=== PATIENT | female | born 1950 | race Caucasian/White ===

== ENCOUNTER 2017-03-05 18:02 | Emergency (ER) | payer OTHER ==
[2017-03-05 18:21] VITALS: TEMP 97.7
--- NOTE | 2017-03-05 20:00 | EDPHY ---
H & P Stated Complaint: dizzy/fell hitting head/neck pain/on coumadin Time Seen by Provider: 03/05/17 18:29 HPI/ROS: CHIEF COMPLAINT: Headache and neck pain after mechanical fall, anticoagulated HISTORY OF PRESENT ILLNESS: The patient presents to the ED with complaints of mild right-sided headache and right-sided neck pain following a mechanical fall. The patient has had some intermittent symptoms of disequilibrium over the past several days. She was walking out of her bathroom earlier today when she accidentally tripped following landing against a wall. The patient struck her head and neck. She was not knocked unconscious. She is currently anticoagulated for factor 5 Leiden. The patient reports she had a normal INR 2.5 yesterday. The patient denies any abdominal pain. She denies any focal numbness or weakness. She denies any additional acute complaints. REVIEW OF SYSTEMS: A comprehensive 10 point review of systems is otherwise negative aside from elements mentioned in the history of present illness. 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 PSHx: multiple orthopedic, full hysterectomy, gall bladder, total hip - Social History Smoking Status: Former smoker - Physical Exam Exam: General Appearance: Alert, no distress Head: Tenderness to palpation along the right temporal occipital scalp with out obvious hematoma or bony crepitus Eyes: Pupils equal, round, reactive ENT, Mouth: No hemotympanum, no oral trauma Neck: Tenderness to palpation along the right neck primarily in the paracervical muscles and mildly in the midline Respiratory: No chest wall tender, subcutaneous air, lungs clear bilaterally Cardiovascular: Regular rate and rhythm Abdomen: Abdomen is soft and nontender, pelvis stable Skin: No lacerations, No abrasion Back: No midline T/L/S pain Extremities: Nontender, full range of motion Neurological: A&Ox3, normal motor function, normal sensory exam Constitutional: Initial Vital Signs Temperature (C) 36.5 C 03/05/17 18:18 Heart Rate 64 03/05/17 18:18 Respiratory Rate 20 03/05/17 18:18 Blood Pressure 122/59 H 03/05/17 18:18 O2 Sat (%) 95 03/05/17 18:18 O2 Delivery Mode Room Air Allergies/Adverse Reactions: adhesive tape Allergy (Verified 03/05/17 18:16) sumatriptan Allergy (Verified 03/05/17 18:16) Home Medications: Medication Instructions Recorded Pravastatin Sodium 40 mg PO HS 05/26/13 fentaNYL [Duragesic 100 MCG Patch 100 mcg TD Q72H 05/26/13 (*)] ALPRAZolam [Xanax 0.25 MG (*)] 0.25 mg PO TID PRN 05/30/16 Levothyroxine [Synthroid 50 mcg 50 mcg PO DAILY06 05/30/16 (*)] Meloxicam 15 mg PO DAILY 05/30/16 Venlafaxine HCl [Venlafaxine 75MG 225 mg PO DAILY 05/30/16 (*)] Warfarin Sodium [Coumadin 4MG (*)] 4 mg PO DAILY16 05/30/16 fentaNYL [Duragesic 25 MCG Patch 25 mcg TD Q72H PRN 05/30/16 (*)] oxyCODONE IR [Oxycodone Ir (*)] 7.5 mg PO TID PRN 05/30/16 GABAPENTIN 03/05/17 Tizanidine HCl 03/05/17 Medical Decision Making - Diagnostics Imaging Results: Imaging Impressions Cervical Spine CT 03/05/17 18:39 Impression: 1. No acute posttraumatic abnormality identified. If there is persistent pain or neurologic deficit, consider MRI and/or flexion and extension views if clinically indicated. 2. Multilevel degenerative change with grade 1 anterolisthesis of C3 on C4. 3. Additional findings as above. Findings discussed with Dr. Sumit Medina on March 05, [address] 03/05/17 18:39 Impression: 1. No acute intracranial findings. 2. Diffuse cerebral atrophy with periventricular and subcortical low attenuation consistent with chronic microvascular ischemic gliosis. Findings discussed with Sumit Medina 03/05/2017, at 1926 hours. ED Course/Re-evaluation: Given the patient had a head injury while on Coumadin, she was taken for a stat CT scan of the head and cervical spine. The patient fortunately has no evidence of intracranial hemorrhage or skull fracture. There is no evidence of an acute cervical spine fracture. The patient was noted to have a normal INR of 2.5 yesterday. The patient was observed in the emergency department for 2 hours and had serial examinations. The patient remained neurologically intact. At this point time I do feel the patient can be discharged home with instructions to return to the ED for severe headache, altered mental status, vomiting or other concerns. The patient will follow up with her primary care provider as needed. Differential Diagnosis: Differential diagnosis considered includes intracranial hemorrhage, skull fracture, cervical spine fracture Departure - Departure Disposition: Home, Routine, Self-Care Clinical Impression: Cervical strain, acute, Headache, Anticoagulated Condition: Good Instructions: Acute Neck Pain (ED) Additional Instructions: 1. Please return to the emergency department for any headache, worsening neck pain, numbness, weakness or other concerns. 2. Your CT scans demonstrate no evidence of any bleeding, fracture or other traumatic injury. 3. Please follow up with your primary care provider as scheduled. Referrals: CIRA GRULLON MD [Other] - As per Instructions
[2017-03-05] MEDS ORDERED: ONDANSETRON 4 MG/2 ML VIAL IVP ONE (20:03)
[2017-03-05 20:31] VITALS: BP 115/67; PULSE 82; RESP 16; O2SAT 96
== END 2017-03-05 20:31 | disposition home or self-care (01) ==
DX: S16.1XXA Strain of muscle, fascia and tendon at neck level, initial encounter (principal); S09.90XA Unspecified injury of head, initial encounter; D68.9 Coagulation defect, unspecified; I10 Essential (primary) hypertension; Z87.891 Personal history of nicotine dependence; Z79.01 Long term (current) use of anticoagulants; W01.198A Fall on same level from slipping, tripping and stumbling with subsequent striking against other object, initial encounter; Y99.8 Other external cause status; Y93.01 Activity, walking, marching and hiking
CPT/HCPCS: 96374; J2405

== ENCOUNTER 2017-08-24 12:40 | Inpatient (IN) | payer OTHER ==
--- NOTE | 2017-08-24 12:45 | CPEKG ---
Heart Rate: 71 RR Interval: 845 P-R Interval: 144 QRSD Interval: 82 QT Interval: 455 QTC Interval: 495 P Eunice: 44 QRS Eunice: 51 T Wave Eunice: 151 EKG Severity - BORDERLINE ECG - EKG Impression: SINUS RHYTHM EKG Impression: BORDERLINE PROLONGED QT INTERVAL Electronically Signed By: Sumit Medina 24-Aug-2017 13:38:27
--- NOTE | 2017-08-24 12:48 | EDPHY ---
H & P Time Seen by Provider: 08/24/17 12:47 HPI/ROS: CHIEF COMPLAINT: Chest pain, lightheadedness, dizziness HISTORY OF PRESENT ILLNESS: The patient presents to the ED with complaints of chest pain, upper abdominal pain on multiple episodes of vomiting and dizziness all of which began earlier this morning. The patient the patient is chronically anticoagulated for thromboembolic disease with Coumadin. She denies any history of coronary artery disease. She does have a prior history of cholecystectomy. She denies prior history of arrhythmia. The patient did take Zofran prior to arrival for her nausea and vomiting. The patient reportedly felt completely fine prior to going to bed yesterday. REVIEW OF SYSTEMS: A comprehensive 10 point review of systems is otherwise negative aside from elements mentioned in the history of present illness. 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 PSHx: multiple orthopedic, full hysterectomy, gall bladder, total hip - Social History Smoking Status: Former smoker - Physical Exam Exam: General Appearance: Alert, no distress Eyes: Pupils equal and round no pallor or injection ENT, Mouth: Mucous membranes moist Respiratory: Sternal tenderness to palpation, lungs clear to auscultation Cardiovascular: Regular rate and rhythm Gastrointestinal: Tenderness to palpation right upper quadrant, epigastrium and left upper quadrant Neurological: 5/5 strength noted all 4 remedies Skin: Warm and dry, no rashes Musculoskeletal: Neck is supple nontender Extremities: symmetrical, full range of motion Constitutional: Initial Vital Signs Temperature (C) 37.1 C 08/24/17 12:45 Heart Rate 79 08/24/17 12:45 Respiratory Rate 20 08/24/17 12:45 Blood Pressure 206/91 H 08/24/17 12:45 O2 Sat (%) 100 08/24/17 12:45 O2 Delivery Mode Room Air Allergies/Adverse Reactions: adhesive tape Allergy (Verified 03/05/17 18:16) sumatriptan Allergy (Verified 03/05/17 18:16) Home Medications: Medication Instructions Recorded ALPRAZolam [Alprazolam] 0.25 mg PO TID PRN 08/24/17 Gabapentin [Neurontin 300 MG (*)] 300 mg PO TID 08/24/17 Levothyroxine Sodium 50 mcg PO DAILY@06 08/24/17 [Levothyroxine Sodium] Lifitegrast [Xiidra] 1 drop EACHEYE BID 08/24/17 Meloxicam [Meloxicam] 15 mg PO HS 08/24/17 Pravastatin Sodium [Pravastatin 40 mg PO HS 08/24/17 Sodium] Tizanidine HCl [Tizanidine HCl] 4 mg PO TID 08/24/17 Venlafaxine HCl [VENLAFAXINE HCL] 225 mg PO DAILY 08/24/17 Warfarin Sodium [Coumadin 5MG (*)] 5 mg PO DAILY16 08/24/17 fentaNYL [Fentanyl] 75 mcg TD Q3D 08/24/17 traMADol HCL [Tramadol HCl] 50 mg PO TID 08/24/17 Medical Decision Making - Diagnostics EKG Interpretation: EKG: Complete interpretation has been separately recorded in the [facility] archive. Summary impression: Sinus rhythm, borderline QT prolongation Imaging Results: Imaging Impressions Chest X-Ray 08/24/17 12:53 Impression: Mild airways disease similar to May 2016. No acute process. Abdomen CT 08/24/17 13:39 Impression: 1. No new abnormality within the abdomen or pelvis. 2. No CT evidence of appendicitis, abscess or bowel obstruction. Findings discussed with Sumit Medina at 14:20 hour, 08/24/2017. ED Course/Re-evaluation: The patient was placed on a quality assurance monitor final. She was noted to have bouts of bigeminy and also appear to have runs of a wider complex tachycardia which were polymorphic in nature suggesting the possibility of torsades. The patient was noted to be mildly hypokalemia. She did receive 1 g of IV magnesium. After receiving IV fluids and magnesium the patient's arrhythmia appears to have resolved. The patient was taken for CT scan of the abdomen pelvis which demonstrated no evidence of acute abdominal pathology. I do feel the patient should be admitted to the hospital in a setting of ventricular arrhythmia on arrival. Consultation was made with Dr. Gómez Zaman from the hospitalist service at 2:30 p.m.. Consultation was made with Dr. aSmuel Altamirano from Cardiology. Differential Diagnosis: Differential diagnosis considered includes acute coronary syndrome, arrhythmia, pancreatitis, choledocholithiasis, gastroenteritis Critical Care Time: Critical care: The total critical care time for this patient was 65 minutes as she presented with a unstable ventricular rhythm. She required multiple IV medications for control of the rhythm and consultation with cardiology and hospital medicine. She will be admitted to a monitored bed for further care and treatment. - Data Points Laboratory Results: Laboratory Results 08/24/17 12:44 08/24/17 12:44 08/24/17 08/24/17 08/24/17 12:48 12:44 12:44 WBC RBC Hgb POC Hgb 15.3 gm/dL gm/dL (12.6-16.3) Hct POC Hct 45 % % (38-47) MCV MCH MCHC RDW Plt Count MPV Neut % (Auto) Lymph % (Auto) Ceiba % (Auto) Eos % (Auto) Baso % (Auto) Nucleat RBC Rel Count Absolute Neuts (auto) Absolute Lymphs (auto) Absolute Monos (auto) Absolute Eos (auto) Absolute Basos (auto) Absolute Nucleated RBC Immature Gran % Immature Gran # PT INR APTT POC Sodium 148 mEq/L H mEq/L (135-145) Sodium 146 mEq/L H mEq/L (135-145) POC Potassium 3.0 mEq/L L mEq/L (3.3-5.0) Potassium 3.1 mEq/L L mEq/L (3.5-5.2) POC Chloride 106 mEq/L mEq/L (97-110) Chloride 104 mEq/L mEq/L (97-110) Carbon Dioxide 18 mEq/l L mEq/l (22-31) Anion Gap 24 mEq/L H mEq/L (8-16) POC BUN 20 mg/dL mg/dL (7-23) BUN 19 mg/dL mg/dL (7-23) Creatinine 0.8 mg/dL mg/dL (0.6-1.0) POC Creatinine 0.7 mg/dL mg/dL (0.6-1.0) Estimated GFR > 60 Glucose 153 mg/dL H mg/dL (70-100) POC Glucose 148 mg/dL H mg/dL (70-100) Calcium 12.1 mg/dL H mg/dL (8.5-10.4) Phosphorus 0.7 mg/dL L mg/dL (2.5-4.5) Magnesium 1.3 mg/dL L mg/dL (1.6-2.3) Total Bilirubin 1.6 mg/dL H mg/dL (0.1-1.4) Conjugated Bilirubin 0.4 mg/dL mg/dL (0.0-0.5) Unconjugated Bilirubin 1.2 mg/dL H mg/dL (0.0-1.1) AST 54 IU/L H IU/L (14-46) ALT 56 IU/L H IU/L (9-52) Alkaline Phosphatase 89 IU/L IU/L (38-126) Troponin I < 0.012 ng/mL ng/mL (0.000-0.034) Total Protein 9.3 g/dL H g/dL (6.3-8.2) Albumin 5.7 g/dL H g/dL (3.5-5.0) Lipase 42 IU/L IU/L (23-300) TSH 2.200 uIU/mL uIU/mL (0.465-4.680) 08/24/17 08/24/17 12:44 12:44 WBC 11.41 10^3/uL H 10^3/uL (3.80-9.50) RBC 5.10 10^6/uL 10^6/uL (4.18-5.33) Hgb 15.9 g/dL g/dL (12.6-16.3) POC Hgb Hct 44.6 % % (38.0-47.0) POC Hct MCV 87.5 fL fL (81.5-99.8) MCH 31.2 pg pg (27.9-34.1) MCHC 35.7 g/dL g/dL (32.4-36.7) RDW 12.4 % % (11.5-15.2) Plt Count 230 10^3/uL 10^3/uL (150-400) MPV 10.3 fL fL (8.7-11.7) Neut % (Auto) 88.2 % H % (39.3-74.2) Lymph % (Auto) 8.0 % L % (15.0-45.0) Ceiba % (Auto) 3.1 % L % (4.5-13.0) Eos % (Auto) 0.0 % L % (0.6-7.6) Baso % (Auto) 0.3 % % (0.3-1.7) Nucleat RBC Rel Count 0.0 % % (0.0-0.2) Absolute Neuts (auto) 10.08 10^3/uL H 10^3/uL (1.70-6.50) Absolute Lymphs (auto) 0.91 10^3/uL L 10^3/uL (1.00-3.00) Absolute Monos (auto) 0.35 10^3/uL 10^3/uL (0.30-0.80) Absolute Eos (auto) 0.00 10^3/uL L 10^3/uL (0.03-0.40) Absolute Basos (auto) 0.03 10^3/uL 10^3/uL (0.02-0.10) Absolute Nucleated RBC 0.00 10^3/uL 10^3/uL (0-0.01) Immature Gran % 0.4 % % (0.0-1.1) Immature Gran # 0.04 10^3/uL 10^3/uL (0.00-0.10) PT 27.4 SEC H SEC (12.0-15.0) INR 2.55 H (0.83-1.16) APTT 35.9 SEC SEC (23.0-38.0) POC Sodium Sodium POC Potassium Potassium POC Chloride Chloride Carbon Dioxide Anion Gap POC BUN BUN Creatinine POC Creatinine Estimated GFR Glucose POC Glucose Calcium Phosphorus Magnesium Total Bilirubin Conjugated Bilirubin Unconjugated Bilirubin AST ALT Alkaline Phosphatase Troponin I Total Protein Albumin Lipase TSH Medications Given: Hydromorphone HCl (Dilaudid) 0.5 - 1 mg IVP Q4HRS PRN PRN Reason: Pain, Severe Unable to Take PO Stop: 09/03/17 15:06 Last Admin: 08/24/17 18:10 Dose: 1 mg Potassium Chloride 20 meq/ (Sodium Chloride) 1,000 mls @ 75 mls/hr IV CONT LC Stop: 02/20/18 15:14 Last Admin: 08/24/17 17:57 Dose: 1,000 mls Potassium Phosphate 15 mmol/ (Dextrose) 255 mls @ 42.5 mls/hr IV ONCE ONE Stop: 08/24/17 21:11 Last Admin: 08/24/17 17:57 Dose: 255 mls Lorazepam (Ativan Injection) 0.5 - 1 mg IVP Q8HRS PRN PRN Reason: Nausea/Vomiting With Chemo Stop: 02/20/18 15:06 Last Admin: 08/24/17 17:24 Dose: 1 mg Discontinued Medications Magnesium Sulfate/Dextrose (Magnesium Sulf 1 Gm (Premix)) 100 mls @ 100 mls/hr IV EDNOW ONE Stop: 08/24/17 13:55 Last Admin: 08/24/17 12:59 Dose: 100 mls Potassium Chloride (Potassium Cl 10 Meq (Premix)) 100 mls @ 100 mls/hr IV Q1H LC Stop: 08/24/17 16:29 Last Admin: 08/24/17 15:40 Dose: 100 mls Magnesium Sulfate/Dextrose (Magnesium Sulf 1 Gm (Premix)) 100 mls @ 100 mls/hr IV ONCE ONE Stop: 08/24/17 16:11 Last Admin: 08/24/17 17:57 Dose: 100 mls Lorazepam (Ativan Injection) 1 mg IVP EDNOW ONE Stop: 08/24/17 13:23 Last Admin: 08/24/17 13:29 Dose: 1 mg Point of Care Test Results: 08/24/17 12:48 POC Sodium 148 H POC Potassium 3.0 L POC Chloride 106 POC BUN 20 POC Creatinine 0.7 POC Glucose 148 H Departure - Departure Disposition: [facility] Inpatient Acute Clinical Impression: Arrhythmia, Vomiting, Abdominal pain, Hypokalemia, Hypomagnesemia Condition: Fair
[2017-08-24] MEDS ORDERED: MAGNESIUM SULF 1 GM/DEXTROSE 100 ML IV ONE ×2 (12:56→15:12)
[2017-08-24 13:10] LABS: PLATELET COUNT 230 10^3/uL (150-400)
[2017-08-24 13:12] LABS: INR 2.55 (0.83-1.16); PROTIME(PATIENT) 27.4 SEC (12.0-15.0)
[2017-08-24] MEDS ORDERED: LORazepam 2 MG/ML INJ IVP ONE (13:22)
[2017-08-24] MEDS ORDERED: ONDANSETRON 4 MG/2 ML VIAL IVP ONE (13:23)
[2017-08-24] MEDS ORDERED: IOPAMIDOL (ISOVUE-300) 100 ML BTL ONE (13:51)
[2017-08-24] MEDS: POTASSIUM Cl (KCl) 100 ML IV SCH ×2 (14:44→15:40)
[2017-08-24] MEDS ORDERED: LORazepam 2 MG/ML INJ IVP PRN (15:07)
[2017-08-24] MEDS ORDERED: PROTOCOL MAGNESIUM 1 DOSE IV PRN (15:09)
[2017-08-24] MEDS ORDERED: PROTOCOL POTASSIUM 1 DOSE MISC PRN (15:09)
[2017-08-24] MEDS ORDERED: PROTOCOL K PHOSPHATE 1 DOSE IV PRN (15:09)
[2017-08-24] MEDS ORDERED: K PHOS 15 MMOL in D5W 250 ML IV ONE (15:12)
[2017-08-24] MEDS: HYDROmorphONE/DILAUDID 1 MG/ML INJ IVP PRN ×4 (15:30→22:10)
--- NOTE | 2017-08-24 15:44 | GHP ---
[f rep st] HISTORY AND PHYSICAL DATE OF ADMISSION: 08/24/2017 CHIEF COMPLAINT: Abdominal pain. HISTORY OF PRESENT ILLNESS: This is a 66-year-old female with a history of chronic pain, who present s with 1 day of nausea, vomiting. This began early in the morning. No clear instigating factors, al though she did take 3 Dulcolax as she had not had a bowel movement for a few days. She started vomit ing profusely, nonbloody. She had some pain in her abdomen which radiated up to her chest. She mike tionally had some palpitations. She has never had a cardiac evaluation before. She has notably lost 80 pounds over the past year intentionally at her doctor's advice. In the emergency department, she was found to have intermittent wide-complex tachycardia which was ca ught on telemetry. She has had about 10 falls in the last year. It does not appear as though she lo st consciousness at the time. Not associated with chest pain or palpitations. She has never had a s tress test before. She has no known heart issues. PAST MEDICAL/SURGICAL HISTORY: 1. Factor V Leiden, on warfarin. 2. Obstructive sleep apnea, on BiPAP and oxygen. 3. Chronic pain, on continuous narcotics. 4. Osteoarthritis. 5. Obesity. 6. Hypothyroid. 7. Depression. 8. Fibromyalgia. MEDICATIONS: Please see medication reconciliation. ALLERGIES: Sumatriptan and adhesive tape. SOCIAL HISTORY: She is accompanied by her partner. FAMILY HISTORY: Reviewed and noncontributory. REVIEW OF SYSTEMS: 10-point review of systems is conducted and is negative, except per HPI. PHYSICAL EXAM: VITAL SIGNS: Blood pressure 142/84, heart rate 76, respiration rate 18, saturating 9 9% on room air. Temperature is 37.1. GENERAL: The patient is a pleasant female who is resting unco mfortably. Vomited once during the interview. HEENT: Shows her to be normocephalic, atraumatic. C ARDIOVASCULAR: Regular rate and rhythm. There are no murmurs, rubs, or gallops. PULMONARY: Lungs clear to auscultation bilaterally. ABDOMEN: Soft. She is mildly tender to palpation in the epigast rium. Normal bowel sounds. SKIN: No rash. : No Munoz. NEUROLOGIC: Shows her to be alert and oriented x3. She is moving all extremities. PSYCHIATRIC: Shows normal mood and affect. LABS: White count is 11.4. INR is 2.5. Sodium is 146, bicarb 18, calcium 12.1. Phos 0.7, magnesiu m 1.3, bilirubin 1.6. Troponin is negative. DATA: 1. I discussed this with Dr. Medina as well as Dr. Altamirano. Will admit to PCU. 2. Abdominal CT is reviewed. This shows nothing acute. 3. Chest x-ray, which I personally viewed and interpreted, shows nothing acute. She does have somew hat pronounced interstitial markings. 4. Telemetry, which I reviewed, shows multiple episodes of a wide-complex tachycardia. 5. EKG, which I personally reviewed and interpreted, shows sinus rhythm. She has some slightly abno rmal T-waves as well as a U wave in leads V2, V3, V4. These are slightly flattened. She has borderl ine prolonged QT as well. 6. Reviewed ECG from 2016. This also shows borderline prolonged QT. IMPRESSION AND PLAN: 1. Wide-complex tachycardia: Cardiology has been consulted. May be electrolyte versus ischemic. W ill aggressively replete electrolytes while she is here in the ED, including mag, phos and potassium. Will get echocardiogram, Lexiscan, EKG tomorrow to assess for QT prolongation. Will avoid QT prolo nging medications. Dr. Altamiarno is going to review her telemetry with Dr. Rivero. 2. Abdominal pain/nausea/vomiting: Nothing clear seen on CT. She tells me she had an admission at [facility] for something similar. They never found an etiology. For now, will treat her symptomatically, r ehydrate her, provide antiemetics which will not prolong QT, pain control. Will consider a GI evalua tion. 3. Electrolyte abnormalities: Aggressively replete, as above. 4. Chronic pain, on continuous narcotics: Will provide her IV narcotics for now. Will transition t o oral when she is able to take oral. 5. Factor V Leiden: She is on warfarin. Her INR is therapeutic. Recheck tomorrow. Continue warfa rin. 6. Obstructive sleep apnea: Continue BiPAP while she is here. 7. Hypothyroid: Check a TSH. 8. Code status: She would like to be full code. 9. Venous thromboembolism risk: Low, given that she is on warfarin with therapeutic INR. /[id number]/MODL
--- NOTE | 2017-08-24 16:42 | ECHO ---
[email or web address] [address] Main: [phone] Fax: Transthoracic Echocardiogram Name: ENMANUEL CRAWFORD MR#: [id number] Study Date: 08/24/2017 Study Time: 03:40 PM Date of : 1950 Age: 66 year(s) Height: 160 cm (63 in.) Weight: 87.54 kg (193 lb.) BSA: 1.9 m2 Gender: Female Examination: Echo Indication: Wide complex tachycardia Image Quality: Contrast: Requested by: Gómez Zaman BP: 142 mmHg/84 mmHg Heart Rate: Rhythm: Indication: Wide complex tachycardia Procedure Staff Ham Pumper: Yas Long [facility] Reading Physician: Yfn Rivero -- Remarks: E Requesting Provider: Conclusions: Mild concentric LV hypertrophy. Global hypercontractility of the left ventricle. The ejection fraction is estimated to be 70-75 %. Measurements: Chambers Valvular Assessment AV/MV Valvular Assessment TV/PV Normal Normal Normal Name Value Range Name Value Range Name Value Range EF Range: 70-75 % AV Vmax: 1.78 m/s (1 m/s-1.7 m/s) AV maxP mmHg ( - ) AV meanP mmHg ( - ) LVOT Vmax: 1.59 m/s (0.7 m/s-1.1 m/s) MV E Vmax: 0.66 m/s ( - ) MV A Vmax: 1.18 m/s ( - ) MV E/A: 0.56 ( - ) Continued Measurements: Chambers Valvular Assessment AV/MV Name Value Name Value LADs Lon.3 cm MV E/E' Septal: 11.30 LA Area: 18.0 cm2 MV E/E' Lateral: 7.20 Findings: Left Ventricle: Mild concentric LV hypertrophy. Global hypercontractility of the left ventricle. The ejection fraction is estimated to be 70-75 %. E/a wave reversal.. Patient: ENMANUEL CRAWFORD Study Date: 08/24/2017 Page 1 of 2 03:40 PM Right Ventricle: Normal size right ventricle. Left Atrium: The left atrium is normal in size. Right Atrium: The right atrium is normal in size. Mitral Valve: The mitral valve is normal in appearance. Aortic Valve: The aortic valve is normal in appearance. Tricuspid Valve: The tricuspid valve appears normal. Trivial tricuspid valve regurgitation. Pulmonic Valve: Pulmonary valve not well visualized. Pericardium: Trivial anterior pericardial effusion. (No Signature Object) Patient: ENMANUEL CRAWFORD Study Date: 08/24/2017 Page 2 of 2 03:40 PM [id number]
[2017-08-24] MEDS ORDERED: ALTEPLASE 2 MG VIAL IVP PRN (16:53)
[2017-08-24] MEDS: POTASSIUM Cl (KCl) 20 MEQ in 1/2 NS 1,000 ML IV SCH (17:57)
[2017-08-24] MEDS ORDERED: hydrALAZINE 20 MG/ML VIAL IVP PRN (19:01)
--- NOTE | 2017-08-24 19:44 | PDCARCONS ---
Cardiology Consult Reason for Consult: Torsades de Pointes Chief Complaint: Nausea, vomiting, epigastric discomfort Requesting Physician: Gómez Zaman MD History of Present Illness: Asked to consult on this 66 yr F. Met her in 2W PCU with her present in the room. She was admitted with UGI symptoms. She took Zofran at home for this. In ED she was noted to have prolonged QT interval and torsades de pointes, nonsustained episodes. She is actively vomiting at the time of our interview. She has had episodes of presyncope x 10 yrs, no syncope, no f/h of SCD. History Information - Allergies/Home Medication List Allergies/Adverse Reactions: adhesive tape Allergy (Verified 03/05/17 18:16) sumatriptan Allergy (Verified 03/05/17 18:16) Home Medications: ALPRAZolam [Alprazolam] 0.25 mg PO TID PRN 08/24/17 [Last Taken Unknown] Gabapentin [Neurontin 300 MG (*)] 300 mg PO TID 08/24/17 [Last Taken 08/23/17] Levothyroxine Sodium [Levothyroxine Sodium] 50 mcg PO DAILY@06 08/24/17 [Last Taken 08/23/17] Lifitegrast [Xiidra] 1 drop EACHEYE BID 08/24/17 [Last Taken 08/23/17] Meloxicam [Meloxicam] 15 mg PO HS 08/24/17 [Last Taken 08/23/17] Pravastatin Sodium [Pravastatin Sodium] 40 mg PO HS 08/24/17 [Last Taken ] Tizanidine HCl [Tizanidine HCl] 4 mg PO TID 08/24/17 [Last Taken 08/24/17] Venlafaxine HCl [VENLAFAXINE HCL] 225 mg PO DAILY 08/24/17 [Last Taken 08/23/17] Warfarin Sodium [Coumadin 5MG (*)] 5 mg PO DAILY16 08/24/17 [Last Taken 08/23/17 ] fentaNYL [Fentanyl] 75 mcg TD Q3D 08/24/17 [Last Taken 08/23/17 17:00] traMADol HCL [Tramadol HCl] 50 mg PO TID 08/24/17 [Last Taken 08/23/17] I have personally reviewed and updated: family history, medical history, social history, surgical history Past Medical History: - Social History Smoking Status: Former smoker Physical Exam Physical Exam: Temp Pulse Resp BP Pulse Ox 37.1 C 105 H 12 185/78 H 100 08/24/17 12:45 08/24/17 18:00 08/24/17 18:00 08/24/17 18:00 08/24/17 18:00 O2 (L/minute) 2 Constitutional: no apparent distress, appears nourished Eyes: PERRL, EOMI Ears, Nose, Mouth, Throat: moist mucous membranes, hearing normal Cardiovascular: regular rate and rhythym, systolic murmur Respiratory: no respiratory distress, no rales or rhonchi Skin: warm Neurologic: AAOx3 Psychiatric: interacting appropriately, not anxious, not encephalopathic Lab and Imaging 08/24/17 12:44 08/24/17 17:53 WBC 11.41 10^3/uL (3.80-9.50) H 08/24/17 12:44 RBC 5.10 10^6/uL (4.18-5.33) 08/24/17 12:44 Hgb 15.9 g/dL (12.6-16.3) 08/24/17 12:44 POC Hgb 15.3 gm/dL (12.6-16.3) 08/24/17 12:48 Hct 44.6 % (38.0-47.0) 08/24/17 12:44 POC Hct 45 % (38-47) 08/24/17 12:48 MCV 87.5 fL (81.5-99.8) 08/24/17 12:44 MCH 31.2 pg (27.9-34.1) 08/24/17 12:44 MCHC 35.7 g/dL (32.4-36.7) 08/24/17 12:44 RDW 12.4 % (11.5-15.2) 08/24/17 12:44 Plt Count 230 10^3/uL (150-400) 08/24/17 12:44 MPV 10.3 fL (8.7-11.7) 08/24/17 12:44 Neut % (Auto) 88.2 % (39.3-74.2) H 08/24/17 12:44 Lymph % (Auto) 8.0 % (15.0-45.0) L 08/24/17 12:44 [place] % (Auto) 3.1 % (4.5-13.0) L 08/24/17 12:44 Eos % (Auto) 0.0 % (0.6-7.6) L 08/24/17 12:44 Baso % (Auto) 0.3 % (0.3-1.7) 08/24/17 12:44 Nucleat RBC Rel Count 0.0 % (0.0-0.2) 08/24/17 12:44 Absolute Neuts (auto) 10.08 10^3/uL (1.70-6.50) H 08/24/17 12:44 Absolute Lymphs (auto) 0.91 10^3/uL (1.00-3.00) L 08/24/17 12:44 Absolute Monos (auto) 0.35 10^3/uL (0.30-0.80) 08/24/17 12:44 Absolute Eos (auto) 0.00 10^3/uL (0.03-0.40) L 08/24/17 12:44 Absolute Basos (auto) 0.03 10^3/uL (0.02-0.10) 08/24/17 12:44 Absolute Nucleated RBC 0.00 10^3/uL (0-0.01) 08/24/17 12:44 Immature Gran % 0.4 % (0.0-1.1) 08/24/17 12:44 Immature Gran # 0.04 10^3/uL (0.00-0.10) 08/24/17 12:44 PT 27.4 SEC (12.0-15.0) H 08/24/17 12:44 INR 2.55 (0.83-1.16) H 08/24/17 12:44 APTT 35.9 SEC (23.0-38.0) 08/24/17 12:44 POC Sodium 148 mEq/L (135-145) H 08/24/17 12:48 Sodium 146 mEq/L (135-145) H 08/24/17 12:44 POC Potassium 3.0 mEq/L (3.3-5.0) L 08/24/17 12:48 Potassium 3.3 mEq/L (3.5-5.2) L 08/24/17 17:53 POC Chloride 106 mEq/L (97-110) 08/24/17 12:48 Chloride 104 mEq/L (97-110) 08/24/17 12:44 Carbon Dioxide 18 mEq/l (22-31) L 08/24/17 12:44 Anion Gap 24 mEq/L (8-16) H 08/24/17 12:44 POC BUN 20 mg/dL (7-23) 08/24/17 12:48 BUN 19 mg/dL (7-23) 08/24/17 12:44 Creatinine 0.8 mg/dL (0.6-1.0) 08/24/17 12:44 POC Creatinine 0.7 mg/dL (0.6-1.0) 08/24/17 12:48 Estimated GFR > 60 08/24/17 12:44 Glucose 153 mg/dL (70-100) H 08/24/17 12:44 POC Glucose 148 mg/dL (70-100) H 08/24/17 12:48 Calcium 12.1 mg/dL (8.5-10.4) H 08/24/17 12:44 Phosphorus 0.8 mg/dL (2.5-4.5) L 08/24/17 17:53 Magnesium 1.7 mg/dL (1.6-2.3) 08/24/17 17:53 Total Bilirubin 1.6 mg/dL (0.1-1.4) H 08/24/17 12:44 Conjugated Bilirubin 0.4 mg/dL (0.0-0.5) 08/24/17 12:44 Unconjugated Bilirubin 1.2 mg/dL (0.0-1.1) H 08/24/17 12:44 AST 54 IU/L (14-46) H 08/24/17 12:44 ALT 56 IU/L (9-52) H 08/24/17 12:44 Alkaline Phosphatase 89 IU/L (38-126) 08/24/17 12:44 Troponin I < 0.012 ng/mL (0.000-0.034) 08/24/17 17:53 Total Protein 9.3 g/dL (6.3-8.2) H 08/24/17 12:44 Albumin 5.7 g/dL (3.5-5.0) H 08/24/17 12:44 Lipase 42 IU/L (23-300) 08/24/17 12:44 TSH 2.200 uIU/mL (0.465-4.680) 08/24/17 12:44 Visualized and Interpreted EKG results: Yes EKG additional interpertation: NSR, prolonged QT interval Telemetry: Sinus rhythm, prolonged QT interval, nonssutained tDP A/P Assessment: Torsades de pointes Plan: ECG shows prolonged QT interval, QT measured at 560 ms. Multifactorial - hypokalemia, hypomagnesemia, ondansetron, antifungal powder and tizanidine. Echo with normal LVEF, no WMA, ECG showing no evidence of acute ischemia. Recommend: 1. Replace lytes. Target K >4.5 , Mg >2 2. Avoid QT prolonging drugs - discussed drugs to avoid with patient and spouse , asked them to download [employer] janki 3. Genetic testing will be arranged. QTc was >460 ms in 2012
[2017-08-24] MEDS: WARFARIN SODIUM 5 MG TAB PO SCH (20:20)
[2017-08-24] MEDS ORDERED: POTASSIUM Cl (KCl) 100 ML IV ONE (21:45)
[2017-08-24] MEDS: PRAVASTATIN SODIUM 40 MG TAB PO SCH (21:54)
[2017-08-24] MEDS: MELOXICAM PO SCH (21:54)
[2017-08-24] MEDS: GABAPENTIN 300 MG CAP PO SCH (21:58)
[2017-08-24] MEDS: traMADol 50 MG TAB PO SCH (21:58)
[2017-08-24] MEDS: Lifitegrast [Xiidra] EACHEYE SCH (22:03)
[2017-08-24] MEDS: LORazepam 2 MG/ML INJ IVP PRN (22:11)
[2017-08-24] MEDS ORDERED: POTASSIUM Cl (KCl) 10 MEQ in D5W 50 ML IV ONE (23:45)
[2017-08-25] MEDS: HYDROmorphONE/DILAUDID 1 MG/ML INJ IVP PRN ×9 (00:37→21:10)
[2017-08-25] MEDS: LORazepam 2 MG/ML INJ IVP PRN ×4 (02:52→20:00)
[2017-08-25] MEDS: LEVOTHYROXINE 50 MCG TAB PO SCH (05:05)
[2017-08-25 06:51] LABS: PLATELET COUNT 188 10^3/uL (150-400)
[2017-08-25 07:02] LABS: INR 2.32 (0.83-1.16); PROTIME(PATIENT) 25.5 SEC (12.0-15.0)
[2017-08-25] MEDS: POTASSIUM Cl (KCl) 20 MEQ in 1/2 NS 1,000 ML IV SCH (07:37)
[2017-08-25] MEDS: traMADol 50 MG TAB PO SCH ×3 (08:17→21:09)
[2017-08-25] MEDS: GABAPENTIN 300 MG CAP PO SCH ×3 (08:17→21:09)
--- NOTE | 2017-08-25 08:56 | CPEKG ---
Heart Rate: 90 RR Interval: 667 P-R Interval: 156 QRSD Interval: 84 QT Interval: 372 QTC Interval: 455 P [place]: 57 QRS [place]: 36 T Wave [place]: 90 EKG Severity - BORDERLINE ECG - EKG Impression: SINUS RHYTHM EKG Impression: BORDERLINE T WAVE ABNORMALITIES Electronically Signed By: Ramirez Roy 25-Aug-2017 10:00:46
[2017-08-25] MEDS ORDERED: MAGNESIUM SULF 2 GM/WATER 50 ML IV ONE (09:20)
--- NOTE | 2017-08-25 09:24 | HOSPPROG ---
Hospitalist Progress Note Assessment/Plan: 66 yo F w nausea vomiting, wide complex tachycardia in setting of prolonged Qt and hypoK, hypomag torsades: has resolved not ischemic seen by cardiology given list of meds to avoid lyes improved echo normal stress today FV Leiden: INR therapeutic falls: moving well per nursing PT eval given anticoag n/vom: med related (dulcolax) vs viral gastroenteritis: normal CT proph: anticoagulated dispo: inpt Subjective: case d/w dr dillard. narrow complex tachycardia overnight- rate 150' s. brief Objective: Vital Signs Temp Pulse Resp BP Pulse Ox 37.1 C 98 14 116/60 97 08/25/17 08:00 08/25/17 08:00 08/25/17 08:00 08/25/17 08:00 08/25/17 08:00 Laboratory Results 08/25/17 06:45 08/25/17 06:45 08/24/17 08/25/17 08/26/17 05:59 05:59 05:59 Intake Total 1605 Output Total 900 Balance 705 PT 25.5 SEC (12.0-15.0) H 08/25/17 06:45 INR 2.32 (0.83-1.16) H 08/25/17 06:45 - Physical Exam Constitutional: no apparent distress, appears nourished Eyes: PERRL, anicteric sclera Ears, Nose, Mouth, Throat: moist mucous membranes, hearing normal Cardiovascular: regular rate and rhythym, no murmur, rub, or gallop Respiratory: no respiratory distress, no rales or rhonchi Gastrointestinal: normoactive bowel sounds, soft, non-tender abdomen Genitourinary: no bladder fullness, No hope in urethra Skin: warm, normal color Musculoskeletal: full muscle strength Neurologic: AAOx3 ICD10 Worksheet Patient Problems: Problems Problem Status Onset Abdominal pain Acute Arrhythmia Acute Hypokalemia Acute Hypomagnesemia Acute Vomiting Acute Chest pain Acute Shortness of breath Acute UTI (urinary tract infection) Acute
[2017-08-25] MEDS ORDERED: POTASSIUM Cl (KCl) 100 ML IV SCH (09:30)
[2017-08-25] MEDS ORDERED: POTASSIUM CL 10 MEQ TAB PO ONE (10:00)
--- NOTE | 2017-08-25 10:23 | PDMN ---
Medical Necessity Medical necessity: M510 supraventricular arrhythmias A-1 day: prolonged QT interval, electrolyte abnormalities, (Na 146, K 3.1, Mg 1.3, Ca 12.1, Bicarb 18 , Phos 0.7, Bili 1.6) abd pain, N/V, hx factor V leiden on warfarin, hx ALEJANDRA , hypothyroid, further monitoring and eval needed
[2017-08-25] MEDS ORDERED: REGADENOSON 0.4 MG/5 ML SYR IVP ONE (10:47)
--- NOTE | 2017-08-25 11:50 | PDCARPN ---
Cardiology Progress Note Chief Complaint: No cardiovascular complaints were voiced today. In general, the patient reports that she is feeling better. Assessment/Plan: Assessment: Patient is a 66 y/o female with history of Factor V Leiden deficiency (on coumadin with therapeutic INR (2.3)), obesity, ALEJANDRA with CPAP use, hypothyroidism , and depression, who presented to [facility] ER with complaints of chest pains, abdominal pains, and emesis. ECG/telemetry with episodic torsades (salvos of polymorphic VT were noted). Labs with hypokalemia, hypomagnesemia, and hypophosphatemia. Further history of antifungal use, pain medication use, and antinausea therapy - all of which are noted to potentially prolong QT/QTc. Patient relayed a history of over ten years of palpitation awareness. No syncope has been noted. No family history of sudden cardiac (SCD). Initial ECGs were without measurable data, given the ectopy noted, to clearly assess the QT/QTc duration, but after arrhythmias settled, QTc to over 500 ms was noted. Prior ECGs from the past were also noted to have QTc at upper limits of normal for female (about 460 ms). Echocardiography with normal LVEF, wall motion, and no significant valve pathology. Electrolytes were replenished overnight, and continue to be supplemented (magnesium and potassium in particular). Dr. Sherly Rivero saw the patient yesterday and arrangements for genetic testing were made. Plan: (1) Continue aggressive electrolyte replenish (2) Download [email or web address] for the patient to have for reference (3) Given "chest pains" and the arrhythmias noted, would arrange for patient to have MPI testing today (ines preferred given some ortho limitations voiced) (4) Cardiology will continue to follow this patient while in house - outpatient follow up with general and/or EP cardiology is also recommended - the genetic testing will likely take some time to complete (5) Would arrange for 30 day [employer] monitor for further assessment of rhythms noted at home Subjective: No cardiovascular complaints were voiced today. Reviewed/Discussed With: hospitalist, multidisciplinary team Objective: Vital Signs (8 Hrs) Temp Pulse Resp BP Pulse Ox 08/25/17 09:59 103 H 16 135/64 H 97 08/25/17 08:00 37.1 C 98 14 116/60 97 08/25/17 06:00 90 12 125/52 H 97 08/25/17 05:00 94 15 125/74 H 97 08/25/17 04:00 108 H 16 132/58 H 94 Intake/Output (24 Hrs) 08/24/17 08/25/17 08/26/17 05:59 05:59 05:59 Intake Total 1605 Output Total 900 Balance 705 Intake: Oral (ml) 30 IV Infused (ml) 1575 K Phos 15 mmol In D5w 250 200 ml @ 42.5 mls/hr IV ONCE ONE Rx#:[id number] Magnesium Sulf 1 gm/ 100 Dextrose 100 ml @ 100 mls /hr IV ONCE ONE Rx#: [id number] POTASSIUM Cl (KCl) 10 meq 150 In D5w 50 ml @ 50 mls/hr IV ONCE ONE Rx#: [id number] POTASSIUM Cl (KCl) 20 meq 900 In 1/2 Ns 1,000 ml @ 75 mls/hr IV CONT LC Rx#: [id number] Output: Urine (ml) 400 Bedside Commode 400 Emesis (ml) 500 Other: Weight 90.083 kg Number of Voids 2 Result Diagrams: 08/25/17 06:45 08/25/17 06:45 Cardiac Labs: Cardiac Lab Results (72 Hrs) 08/25/17 08/24/17 00:20 17:53 Troponin I < 0.012 < 0.012 Telemetry: Sinus tachycardia (rates of 90-110 bpm) have been noted. Echocardiogram: LVEF was normal (70%) without appreciable valve pathology noted - Physical Exam Constitutional: WDWN, healthy appearing, obese Eyes: PERRL, EOMI Ears, Nose, Mouth, Throat: moist mucous membranes Cardiovascular: regular rate and rhythm (tachycardia), pulses symmetric bilat Peripheral Pulses: 2+: dorsalis-pedis (R), dorsalis-pedis (L) Respiratory: clear to auscultate bilat Gastrointestinal: normoactive bowel sounds Skin: no rashes, no edema Neurologic: AAOx3, CN II-XII grossly intact Psychiatric: cooperative, interactive, following commands ICD10 Worksheet Patient Problems: Problems Problem Status Onset Abdominal pain Acute Arrhythmia Acute Hypokalemia Acute Hypomagnesemia Acute Vomiting Acute Chest pain Acute Shortness of breath Acute UTI (urinary tract infection) Acute
[2017-08-25] MEDS: ACETAMINOPHEN 325 MG TAB PO PRN ×2 (12:08→18:29)
--- NOTE | 2017-08-25 12:13 | ASMTCASEMG ---
Living Arrangements What is your living Answers: With Partner arrangement? Who do you live with? Type Of Residence What kind of residence do Answers: House you live in? Discharge Plan Comments Coordination Status Comments Notes: Patient is a 66yo female who was admitted for wide-complex tachycardia with abdominal pain/nausea/vomiting. OT/PT have been ordered. Patient's life partner has been at bedside. Awaiting therapies to determine d/c needs. CM will follow. Date Signed: 08/25/2017 12:12 PM Electronically Signed By:Julianna Holley LCSW
[2017-08-25] MEDS: Lifitegrast [Xiidra] EACHEYE SCH ×2 (13:17→21:09)
--- NOTE | 2017-08-25 13:23 | CPR ---
[f rep st] NONINVASIVE CARDIAC PROCEDURE REPORT DATE OF PROCEDURE: 08/25/2017 PROCEDURE: Lexiscan nuclear stress test. REASON FOR TEST: Long QT interval leading to torsades on 08/24/2017 with electrolyte imbalance at th at time. Resting EKG shows a regular sinus rhythm with a rate of 89, borderline T abnormalities, QTcB 492, QTc F 461, rate 89. Resting blood pressure 148/70, oxygen saturation 100% on 2 L of oxygen. STRESS PORTION: Lexiscan was injected rapidly, followed by saline flush. Cardiolite was then inject ed, followed by saline flush. There were no EKG changes. She remained asymptomatic through the test portion. Blood pressure 140/60, oxygen saturation 98% on 2 L oxygen. Heart rate peaked at 106. Sh e remained asymptomatic throughout. RECOVERY: She spontaneously recovered with no arrhythmias or EKG changes. Blood pressure 138/62, ox ygen saturation 99, heart rate 102. At this time, she currently is stable for nuclear imaging. /[id number]/MODL
[2017-08-25] MEDS: WARFARIN SODIUM 5 MG TAB PO SCH (16:02)
--- NOTE | 2017-08-25 16:49 | GCON ---
[f rep st] CONSULTATION PULMONARY/CRITICAL CARE CONSULTATION DATE OF CONSULTATION: 08/25/2017 REFERRING PHYSICIAN: Chun Johnson MD REASON FOR REFERRAL: Evaluation and management of hypokalemia and hypomagnesemia, ventricular tachyc ardia. HISTORY: The patient is a 66-year-old woman who was in her usual state of good health, when she was admitted yesterday with a 1-day history of nausea and vomiting. She also had some palpitations. She had taken some Zofran. In the emergency department, she was found to have intermittent wide-complex tachycardia which was felt to be consistent with torsades, and was treated with IV magnesium. She h as a history of presyncope for about 10 years with no syncopal episodes. After initial treatment, joceline walls had another episode of torsades, which was again treated with magnesium. She was seen by Cardiolog y, who referred her to Dr. Rivero from Electrophysiology. He has recommended ongoing electrolyte replac ement as well as avoiding QT prolonging drugs. The patient reports that she had another episode of v omiting today after a walk. She currently denies any nausea or lightheadedness. PAST MEDICAL HISTORY: 1. Factor V Leiden, on warfarin. 2. Obstructive sleep apnea, on BiPAP and oxygen. 3. Chronic pain. 4. Osteoarthritis. 5. Obesity. 6. Hypothyroid. 7. Depression. 8. Fibromyalgia. MEDICATIONS: Tizanidine, venlafaxine, meloxicam, levothyroxine, Coumadin, pravastatin, Fentanyl, alp razolam, tramadol, and Neurontin. ALLERGIES: Sumatriptan and adhesive tape. SOCIAL HISTORY: She is here with a partner. She does not smoke. FAMILY HISTORY: Unremarkable. REVIEW OF SYSTEMS: A 10-point review of systems adds nothing to the history of present illness. PHYSICAL EXAMINATION: GENERAL: The patient is awake, alert, and in no acute distress. VITAL SIGNS: Her blood pressure is 138/63 with a heart rate of 97. She is afebrile. Oxygen saturations are 96% on 2 L. HEENT: Normocephalic and atraumatic. No icterus. NECK: No JVD. Trachea is midline. CH EST: Clear to auscultation. CARDIAC: Regular rate and rhythm without murmur. ABDOMEN: Soft, nont iwona. Bowel sounds are present. EXTREMITIES: No clubbing, cyanosis, or edema. NEURO: The patien t is awake and alert. She has no gross motor or sensory deficits. LABORATORY: Potassium is 4.2, up from 3.3. Magnesium is 1.9, up from 1.7. Troponin is less than 0. 012. Glucose is 112. CBC is unremarkable. An INR is 2.3. A chest x-ray shows clear lungs. Images reviewed by me. An echocardiogram shows normal LV and RV, with an ejection fraction 70% to 75%. ASSESSMENT: 1. Ventricular tachycardia. This appears to be torsade, with a prolonged QT interval. This may hav e been prompted by taking ondansetron. She has had no further episodes here in the ICU. Her hypomag nesemia and hypokalemia are being corrected, but she did have another episode of vomiting. 2. Hypokalemia, this is normalized, but ideally should be higher given her recent torsades. This is likely due to the patient's vomiting. 3. Hypomagnesemia. This remains a bit lower than the target. 4. Obstructive sleep apnea. This is usually treated with BiPAP and oxygen, and treatment should con tinue here. 5. Nausea and vomiting. This has generally been improving, but she did have an episode of vomiting earlier this afternoon. RECOMMENDATIONS: 1. Continue potassium and magnesium replacement. 2. The patient should use her BiPAP and oxygen at night, preferably her home unit. 3. Event monitoring and genetic testing as per Cardiology. 4. I think the patient can be moved to PCU for continued observation. /[id number]/MODL
[2017-08-25] MEDS ORDERED: POTASSIUM Cl (KCl) 50 ML IV ONE (19:28)
[2017-08-25] MEDS: MELOXICAM PO SCH (20:52)
[2017-08-25] MEDS: ALPRAZolam 0.25 MG TAB PO PRN (21:10)
[2017-08-25] MEDS: PRAVASTATIN SODIUM 40 MG TAB PO SCH (21:10)
[2017-08-26] MEDS: LEVOTHYROXINE 50 MCG TAB PO SCH (06:16)
[2017-08-26] MEDS ORDERED: fentaNYL 75 MCG PATCH TD SCH (08:00)
[2017-08-26] MEDS: traMADol 50 MG TAB PO SCH ×3 (08:30→21:31)
[2017-08-26] MEDS: GABAPENTIN 300 MG CAP PO SCH ×3 (08:30→21:31)
[2017-08-26] MEDS: Lifitegrast [Xiidra] EACHEYE SCH ×2 (09:25→22:54)
[2017-08-26] MEDS: HYDROmorphONE/DILAUDID 1 MG/ML INJ IVP PRN ×3 (10:35→21:31)
[2017-08-26] MEDS: ACETAMINOPHEN 325 MG TAB PO PRN (10:36)
--- NOTE | 2017-08-26 12:33 | PDCARPN ---
Cardiology Progress Note Chief Complaint: No cardiovascular complaints today. Assessment/Plan: Assessment: 08-26-17 No events overnight. Patient did report mild nausea/emesis yesterday afternoon. No further ventricular ectopy has been noted. Electrolytes have normalized with aggressive supplementation. No complaints of chest pains or pressure. No PND or orthopnea. INR continues to be therapeutic. Pulmonary consultation performed given ALEJANDRA history. Stress testing yesterday without ischaemia or infarction patterns noted. Normal left ventricular systolic ejection fraction was noted. ECG (yesterday) without pathology to the QT/QTc noted. Genetic testing has yet to be performed - sounds like this might be arranged via home testing in the outpatient setting. Patient with stress as insurance coverage is about to change, and possible need for further medical testing. PCP was located in [place], but she is wanting to have this service moved closer to home ([facility]). 08-25-17 Patient is a 66 y/o female with history of Factor V Leiden deficiency (on coumadin with therapeutic INR (2.3)), obesity, ALEJANDRA with CPAP use, hypothyroidism , and depression, who presented to [facility] ER with complaints of chest pains, abdominal pains, and emesis. ECG/telemetry with episodic torsades (salvos of polymorphic VT were noted). Labs with hypokalemia, hypomagnesemia, and hypophosphatemia. Further history of antifungal use, pain medication use, and antinausea therapy - all of which are noted to potentially prolong QT/QTc. Patient relayed a history of over ten years of palpitation awareness. No syncope has been noted. No family history of sudden cardiac (SCD). Initial ECGs were without measurable data, given the ectopy noted, to clearly assess the QT/QTc duration, but after arrhythmias settled, QTc to over 500 ms was noted. Prior ECGs from the past were also noted to have QTc at upper limits of normal for female (about 460 ms). Echocardiography with normal LVEF, wall motion, and no significant valve pathology. Electrolytes were replenished overnight, and continue to be supplemented (magnesium and potassium in particular). Dr. Sherly Rivero saw the patient yesterday and arrangements for genetic testing were made. Plan: (1) Arrange for genetic testing to assess for long QT risks (2) Would arrange for [employer] (4 week rhythm monitor) - consideration for LINQ implant, but generally, insurance coverage prefers external monitor prior to the implanted (3) Would follow pulmonary recommendation (likely CPAP use), and potentially, outpatient follow up (4) Outpatient follow up with cardiology is recommended. Subjective: No cardiovascular complaints Objective: Vital Signs (8 Hrs) Temp Pulse Resp BP Pulse Ox 08/26/17 12:00 36.8 C 90 18 129/73 H 98 08/26/17 07:44 36.9 C 86 12 125/58 H 98 Intake/Output (24 Hrs) 08/25/17 08/26/17 08/27/17 05:59 05:59 05:59 Intake Total 1605 1553 Output Total 900 Balance 705 1553 Intake: Oral (ml) 30 1250 IV Intake (ml) 50 IV Infused (ml) 1575 253 K Phos 15 mmol In D5w 250 200 ml @ 42.5 mls/hr IV ONCE ONE Rx#:[id number] Magnesium Sulf 1 gm/ 100 Dextrose 100 ml @ 100 mls /hr IV ONCE ONE Rx#: [id number] POTASSIUM Cl (KCl) 10 meq 150 In D5w 50 ml @ 50 mls/hr IV ONCE ONE Rx#: [id number] POTASSIUM Cl (KCl) 20 meq 900 253 In 1/2 Ns 1,000 ml @ 75 mls/hr IV CONT LC Rx#: [id number] Output: Urine (ml) 400 Bedside Commode 400 Emesis (ml) 500 Other: Weight 90.083 kg Number of Voids 2 Toilet 3 Number of Emesis 1 Occurrences Result Diagrams: 08/25/17 06:45 08/26/17 06:00 Cardiac Labs: Cardiac Lab Results (72 Hrs) 08/25/17 08/24/17 00:20 17:53 Troponin I < 0.012 < 0.012 Telemetry: sinus rhythm - Physical Exam Constitutional: WDWN, healthy appearing, no apparent distress Eyes: PERRL, EOMI Ears, Nose, Mouth, Throat: moist mucous membranes Cardiovascular: regular rate and rhythm, no murmurs Peripheral Pulses: 2+: dorsalis-pedis (R), dorsalis-pedis (L) Gastrointestinal: normoactive bowel sounds, no tenderness Skin: no edema Musculoskeletal: no muscular tenderness Neurologic: AAOx3, CN II-XII grossly intact Psychiatric: cooperative, interactive, following commands, anxious ICD10 Worksheet Patient Problems: Problems Problem Status Onset Abdominal pain Acute Arrhythmia Acute Hypokalemia Acute Hypomagnesemia Acute Vomiting Acute Chest pain Acute Shortness of breath Acute UTI (urinary tract infection) Acute
--- NOTE | 2017-08-26 15:34 | ASMTCMCOM ---
CM Note CM Note Notes: Met with patient today to answer questions she has about follow up care. Patient needs a new family dr since hers has retired. Patient was given 3 family practices and 3 internal medicine practices to review and make a decision. CM will make her an appointment when she has decided.CM will follow. Date Signed: 08/26/2017 03:34 PM Electronically Signed By:Julianna Holley LCSW
--- NOTE | 2017-08-26 15:53 | HOSPPROG ---
Hospitalist Progress Note Assessment/Plan: 66 yo F w nausea vomiting, wide complex tachycardia in setting of prolonged Qt and hypoK, hypomag torsades: has resolved not ischemic seen by cardiology given list of meds to avoid lyes improved echo normal stress today FV Leiden: INR therapeutic constipation: miralax back pain: add robaxin (does not prolong QT falls: moving well per nursing PT eval given anticoag n/vom: med related (dulcolax) vs viral gastroenteritis: normal CT proph: anticoagulated dispo: inpt Subjective: case d/w dr dillard Objective: Vital Signs Temp Pulse Resp BP Pulse Ox 36.8 C 90 16 138/55 H 98 08/26/17 12:00 08/26/17 15:13 08/26/17 15:13 08/26/17 15:13 08/26/17 12:00 Laboratory Results 08/25/17 06:45 08/26/17 06:00 08/25/17 08/26/17 08/27/17 05:59 05:59 05:59 Intake Total 1605 1553 Output Total 900 Balance 705 1553 PT 25.5 SEC (12.0-15.0) H 08/25/17 06:45 INR 2.32 (0.83-1.16) H 08/25/17 06:45 - Physical Exam Constitutional: no apparent distress, appears nourished Eyes: PERRL, anicteric sclera Ears, Nose, Mouth, Throat: moist mucous membranes, hearing normal Cardiovascular: regular rate and rhythym, no murmur, rub, or gallop, systolic murmur Respiratory: no respiratory distress, no rales or rhonchi Gastrointestinal: normoactive bowel sounds, soft, non-tender abdomen Genitourinary: No hope in urethra Skin: warm, normal color Musculoskeletal: full muscle strength, no muscle tenderness Neurologic: AAOx3 ICD10 Worksheet Patient Problems: Problems Problem Status Onset Abdominal pain Acute Arrhythmia Acute Hypokalemia Acute Hypomagnesemia Acute Vomiting Acute Chest pain Acute Shortness of breath Acute UTI (urinary tract infection) Acute
[2017-08-26] MEDS: METHOCARBAMOL 750 MG TAB PO SCH ×2 (16:45→21:31)
[2017-08-26] MEDS: WARFARIN SODIUM 5 MG TAB PO SCH (16:45)
[2017-08-26] MEDS: POLYETHYLENE GLYCOL 3350 17 GM PKT PO SCH (16:45)
[2017-08-26] MEDS: ALPRAZolam 0.25 MG TAB PO PRN (21:31)
[2017-08-26] MEDS: PRAVASTATIN SODIUM 40 MG TAB PO SCH (21:31)
[2017-08-26] MEDS: MELOXICAM PO SCH (22:55)
[2017-08-27] MEDS: LORazepam 2 MG/ML INJ IVP PRN (00:15)
[2017-08-27 04:59] LABS: INR 2.53 (0.83-1.16); PROTIME(PATIENT) 27.2 SEC (12.0-15.0)
[2017-08-27] MEDS: LEVOTHYROXINE 50 MCG TAB PO SCH (05:38)
[2017-08-27] MEDS ORDERED: MAGNESIUM SULF 1 GM/DEXTROSE 100 ML IV ONE (05:46)
[2017-08-27 07:54] VITALS: BP 141/60; PULSE 90; RESP 14; TEMP 99; O2SAT 97
[2017-08-27] MEDS: GABAPENTIN 300 MG CAP PO SCH (08:05)
[2017-08-27] MEDS: POLYETHYLENE GLYCOL 3350 17 GM PKT PO SCH (08:06)
[2017-08-27] MEDS: traMADol 50 MG TAB PO SCH (08:06)
--- NOTE | 2017-08-27 09:23 | HOSPPROG ---
Hospitalist Progress Note Assessment/Plan: 66 yo F w nausea vomiting, wide complex tachycardia in setting of prolonged Qt and hypoK, hypomag torsades: has resolved not ischemic seen by cardiology given list of meds to avoid lyes improved echo normal stress today FV Leiden: INR therapeutic constipation: miralax back pain: add robaxin (does not prolong QT) falls: moving well per nursing PT eval given anticoag n/vom: med related (dulcolax) vs viral gastroenteritis: normal CT proph: anticoagulated dispo: home today cardiology follow up > 30 minutes on dc Subjective: no events on tele. ready for dc Objective: Vital Signs Temp Pulse Resp BP Pulse Ox 37.2 C 90 14 141/60 H 97 08/27/17 07:50 08/27/17 07:50 08/27/17 07:50 08/27/17 07:50 08/27/17 07:50 Laboratory Results 08/25/17 06:45 08/27/17 04:35 08/26/17 08/27/17 08/28/17 05:59 05:59 05:59 Intake Total 1553 1800 Balance 1553 1800 PT 27.2 SEC (12.0-15.0) H 08/27/17 04:35 INR 2.53 (0.83-1.16) H 08/27/17 04:35 - Physical Exam Constitutional: no apparent distress, appears nourished Eyes: PERRL, anicteric sclera Ears, Nose, Mouth, Throat: moist mucous membranes, hearing normal Cardiovascular: regular rate and rhythym, no murmur, rub, or gallop Respiratory: no respiratory distress, no rales or rhonchi Gastrointestinal: normoactive bowel sounds, soft, non-tender abdomen Genitourinary: no bladder fullness, No hope in urethra Skin: warm, normal color Musculoskeletal: full muscle strength, no muscle tenderness Neurologic: AAOx3 Psychiatric: interacting appropriately ICD10 Worksheet Patient Problems: Problems Problem Status Onset Abdominal pain Acute Arrhythmia Acute Hypokalemia Acute Hypomagnesemia Acute Vomiting Acute Chest pain Acute Shortness of breath Acute UTI (urinary tract infection) Acute
[2017-08-27] MEDS: HYDROmorphONE/DILAUDID 1 MG/ML INJ IVP PRN (10:58)
[2017-08-27] MEDS: METHOCARBAMOL 750 MG TAB PO SCH (11:52)
[2017-08-27] MEDS: Lifitegrast [Xiidra] EACHEYE SCH (11:53)
--- NOTE | 2017-08-27 17:03 | GDS ---
[f rep st] DISCHARGE SUMMARY DISCHARGE DIAGNOSES: 1. Factor V Leiden. 2. Torsade. 3. Prolonged QT, now resolved. 4. Chronic pain. Please see admission history and physical by Dr. Gómez Zaman. The patient presented to the [facility] department with nausea, vomiting, and abdominal pain. She had an unremarkable abdominal CT in the emergency department. She was found to have torsade. She was seen by EP. The etiology of her t orsade was felt to be electrolyte disturbances as well as tizanidine and Zofran. She had an echo with normal LVEF, normal wall motion abnormalities. She underwent a stress test that was unremarkable for myocardial ischemia. She had outpatient referral for an event monitor and gene tic testing for VT. She is discharged home. Tizanidine and Zofran were discontinued. She was given a prescription for Robaxin. /[id number]/MODL
== END 2017-08-27 12:14 | disposition home or self-care (01) | DRG 309 ==
LOC: OBSVTOIN 14:28 → F2W 16:12 → F2N 17:08
PROVIDERS: ADMIT Student in an Organized Health Care Education/Training Program; ATTEND Student in an Organized Health Care Education/Training Program
PROC: 02HV33Z Insertion of Infusion Device into Superior Vena Cava, Percutaneous Approach (ICD-10-PCS; principal; 2017-08-24)
DX: I47.2 Ventricular tachycardia (principal); D68.51 Activated protein C resistance; Z79.01 Long term (current) use of anticoagulants; G47.33 Obstructive sleep apnea (adult) (pediatric); I10 Essential (primary) hypertension; E03.9 Hypothyroidism, unspecified; G89.29 Other chronic pain; E87.6 Hypokalemia; E83.42 Hypomagnesemia; Z87.891 Personal history of nicotine dependence
CPT/HCPCS: 82947-QW; 96365; 97161-GP; 97165-GO; A9500; C1751; J0360; J1170; J2060; J2785; J3475; J3480; Q9967

== ENCOUNTER → 2017-10-07 | Outpatient (CLI) | payer OTHER ==
[~2017-10-07] MED LIST: IOPAMIDOL (ISOVUE-300) 100 ML BTL ONE
== END ==
LOC: FIMAGING 10-06 11:34
PROVIDERS: ATTEND Internal Medicine
DX: R10.31 Right lower quadrant pain (principal); K59.00 Constipation, unspecified; K83.9 Disease of biliary tract, unspecified; Z90.49 Acquired absence of other specified parts of digestive tract
CPT/HCPCS: 74178; Q9967

== ENCOUNTER 2017-10-08 12:56 | Observation (INO) | payer OTHER ==
--- NOTE | 2017-10-08 12:59 | EDPHY ---
H & P Time Seen by Provider: 10/08/17 12:58 HPI/ROS: CHIEF COMPLAINT: Abdominal pain and vomiting HISTORY OF PRESENT ILLNESS: The patient is an anticoagulated (Warfarin) 67 y/o female with a history of Factor V Leiden deficiency and Torsades complaining of abdominal pain and vomiting, onset 2 days ago. Over the past 5 years, the patient has had 10 intermittent episodes of similar abdominal pain with no clinical diagnosis. Denies seeing a school office assistant for these symptoms. On 08/24/17, 1.5 months ago, she was admitted to this hospital and diagnosed with Torsades due to an electrolyte disturbance as well as using tizanidine and Zofran. During this visit she had a normal abdominal CT, echo, and cardiac stress test. 2 days ago she developed upper abdominal pain radiating to her chest and presented to her PCP, Dr. Means, who ordered an abdominal CT. The CT yesterday was normal but did show a mild amount of constipation. Last night at 02:30 the abdominal pain worsened and she has had 4 episodes of diarrhea since. At 12:00, 1 hour ago, she began to vomit and has had a total of 4 episodes since. The abdominal pain is currently severe, located in her lower abdomen and radiating to her upper abdomen and chest; this is similar to prior episodes of abdominal pain. Denies use of marijuana. No paresthesias, numbness, headache, shortness of breath, urinary complaints. Prior medical records reviewed including discharge summary on 08/27/17. REVIEW OF SYSTEMS: Aside from elements discussed in the HPI, a comprehensive 10-point review of systems was reviewed and is negative. Past Medical/Surgical History: Factor V Leiden, torsade, obstructive sleep apnea, chronic pain (on continuous narcotics), osteoarthritis, obesity, hypothyroid, depression, fibromyalgia, cholecystectomy. Social History: Life partner at bedside, lives in [place], retired Smoking Status: Former smoker Physical Exam: General Appearance: Alert, pale, appears uncomfortable Eyes: Pupils equal and round, no conjunctival pallor ENT, Mouth: Mucous membranes dry Neck: Normal inspection Respiratory: Lungs are clear to auscultation Cardiovascular: Regular rate and rhythm Gastrointestinal: soft and diffusely tender, decreased BS Neurological: A&O, nonfocal exam Skin: Warm and dry, no rash Extremities: Nontender, no pedal edema Psychiatric: flat affect Constitutional: Initial Vital Signs Temperature (C) 36.8 C 10/08/17 13:01 Heart Rate 100 10/08/17 13:01 Respiratory Rate 14 10/08/17 13:01 Blood Pressure 142/99 H 10/08/17 13:01 O2 Sat (%) 97 10/08/17 13:01 O2 Delivery Mode Nasal Cannula O2 (L/minute) 2 Allergies/Adverse Reactions: fluoxetine [From Prozac] Allergy (Mild, Verified 10/09/17 01:41) Other-Enter Comments adhesive tape Allergy (Verified 10/08/17 17:30) sumatriptan Allergy (Verified 10/08/17 17:30) Home Medications: Medication Instructions Recorded Gabapentin [Neurontin 300 MG (*)] 300 mg PO QID 08/24/17 Levothyroxine Sodium 50 mcg PO DAILY@06 08/24/17 Lifitegrast [Xiidra] 1 drop EACHEYE BID 08/24/17 Meloxicam 15 mg PO DAILY@11 08/24/17 Pravastatin Sodium 40 mg PO HS 08/24/17 Warfarin Sodium [Coumadin 5MG (*)] 5 mg PO SUTUWETHFRSA 08/24/17 fentaNYL [Fentanyl] 75 mcg TD Q3D 08/24/17 traMADol HCL [Tramadol HCl] 50 mg PO TID 08/24/17 Methocarbamol [Robaxin 750 mg (*)] 750 mg PO TID #90 tab 08/27/17 Lidocaine 5% [Lidocaine 5% Oint] 1 janki TP TID PRN 10/08/17 Metoprolol Succinate Xr [Toprol Xl 50 mg PO DAILY 10/08/17 25 mg (*)] Polyethylene Glycol 3350 [Miralax 17 gm PO DAILY PRN 10/08/17 17 gm (*)] Warfarin Sodium [Coumadin 5MG (*)] 7.5 mg PO MO@16 10/08/17 Medical Decision Making - Diagnostics EKG Interpretation: EKG interpreted by me reveals normal sinus rhythm with a rate of 91, normal axis , normal intervals, ST and T segments normal. Interpretation: normal EKG Imaging Results: Chest X-Ray 10/08/17 13:13 Impression: Hypoventilatory changes with no discrete airspace pathology. Imaging: I viewed and interpreted images myself ED Course/Re-evaluation: This patient presents with recurrent abdominal pain and vomiting, with multiple prior negative workups. Clinical presentation is most consistent with cyclic vomiting syndrome. Presentation is complicated, given that most antiemetics are contraindicated, given recent history of torsades. Ativan 0.5 mg IV given for nausea, as this has helped her in the past. If Ativan does not control her symptoms, I will proceed to Dilaudid IV. She will most likely require admission for control of vomiting and severe abdominal pain. She is comfortable with potential plan for admission. I do not feel that imaging is indicated at this point. 1400: labs reveal hyperkalemia and hypercalcemia, most likely secondary to dehydration. EKG reviewed and is normal, without signs of hyperkalemia. IV normal saline 2nd L given. Will repeat Chem 7 after the 2nd L of normal saline. Feels much better, drowsy after Ativan, pain has resolved. 1436: reassessed patient and discussed laboratory findings. She continues to feel better and is still drowsy. Abd exam remains benign. IVF infusing. 1537: Patient is feeling better and is able to ambulate slowly to the bathroom. p.o trial with ice chips. 1613: Repeat chemistry 7 sent to the laboratory. 1631: Patient's nurse reports that the patient is nauseous and achy again. Additional 0.5 mg IV Ativan given. Repeat labs reviewed; hyperkalemia and hypercalcemia have resolved after IV hydration. Magnesium is slightly low at 1.5. Magnesium 1 g IV ordered. 1636: Reassessed patient and discussed plan for admission as she has recurrent nausea and abd cramping. Abd exam remains benign. 1639: Consulted with hospitalist service, Dr. Johnson accepts admission of this patient. The patient has remained in normal sinus rhythm throughout. Differential Diagnosis: Differential diagnosis includes though it is not limited to appendicitis, cholecystitis, diverticulitis, pyelonephritis, bowel perforation, small bowel obstruction. - Data Points Laboratory Results: Laboratory Results 10/08/17 13:10 10/08/17 16:07 Medications Given: Acetaminophen (Tylenol) 650 mg PO Q4HRS PRN PRN Reason: Pain, Mild/Fever, Can Take PO Stop: 04/06/18 18:00 Last Admin: 10/09/17 03:35 Dose: 650 mg Gabapentin (Neurontin) 300 mg PO QID LC Stop: 04/06/18 20:59 Last Admin: 10/09/17 05:48 Dose: 300 mg Levothyroxine Sodium (Synthroid) 50 mcg PO DAILY@0600 [facility] Stop: 04/07/18 05:59 Last Admin: 10/09/17 05:48 Dose: 50 mcg Melatonin (Melatonin) 3 - 6 mg PO HS PRN PRN Reason: Sleep/Insomnia Stop: 04/07/18 02:28 Last Admin: 10/09/17 03:35 Dose: 6 mg Methocarbamol (Robaxin) 750 mg PO TID [facility] Stop: 04/06/18 21:59 Last Admin: 10/08/17 23:34 Dose: 750 mg Miscellaneous Medication (Lifitegrast [Xiidra]) 1 drop EACHEYE BID [facility] Stop: 04/06/18 20:59 Last Admin: 10/08/17 20:55 Dose: Not Given Oxycodone HCl (Oxycodone Ir) 10 mg PO Q4HRS PRN PRN Reason: Pain, Severe Able to Take PO Stop: 10/18/17 18:16 Last Admin: 10/09/17 01:41 Dose: 10 mg Polyethylene Glycol (Miralax) 17 gm PO DAILY [facility] Stop: 04/06/18 18:14 Last Admin: 10/08/17 19:33 Dose: Not Given Pravastatin Sodium (Pravachol) 40 mg PO HS [facility] Stop: 04/06/18 20:59 Last Admin: 10/08/17 21:01 Dose: 40 mg Tramadol HCl (Ultram) 50 mg PO TID [facility] Stop: 04/06/18 21:59 Last Admin: 10/08/17 23:34 Dose: 50 mg Warfarin Sodium (Coumadin) 5 mg PO [id number]@1600 [facility] Stop: 04/06/18 18:14 Last Admin: 10/08/17 21:01 Dose: 5 mg Discontinued Medications Sodium Chloride (Ns) 1,000 mls @ 0 mls/hr IV ONCE ONE PRN Reason: Wide Open Stop: 10/08/17 13:28 Last Admin: 10/08/17 13:29 Dose: 1,000 mls Sodium Chloride (Ns) 1,000 mls @ 0 mls/hr IV ONCE ONE; Wide Open PRN Reason: Protocol Stop: 10/08/17 14:06 Last Admin: 10/08/17 15:09 Dose: 1,000 mls Magnesium Sulfate/Dextrose (Magnesium Sulf 1 Gm (Premix)) 100 mls @ 100 mls/hr IV EDNOW ONE Stop: 10/08/17 17:33 Last Admin: 10/08/17 16:44 Dose: 100 mls Sodium Chloride (Ns) 1,000 mls @ 125 mls/hr IV CONT LC Stop: 10/09/17 02:14 Last Admin: 10/08/17 19:22 Dose: 1,000 mls Lorazepam (Ativan Injection) 0.5 mg IVP EDNOW ONE Stop: 10/08/17 13:28 Last Admin: 10/08/17 13:29 Dose: 0.5 mg Lorazepam (Ativan Injection) 0.5 mg IVP EDNOW ONE Stop: 10/08/17 16:35 Last Admin: 10/08/17 16:39 Dose: 0.5 mg Polyethylene Glycol (Miralax) 17 gm PO ONCE ONE Stop: 10/08/17 18:12 Last Admin: 10/08/17 19:22 Dose: 17 gm Departure - Departure Disposition: [facility] Inpatient Acute Clinical Impression: Vomiting Qualifiers: Vomiting type: cyclical vomiting Vomiting Intractability: unspecified Nausea presence: with nausea Qualified Code(s): G43.A0 - Cyclical vomiting, not intractable Abdominal pain Qualifiers: Abdominal location: generalized Qualified Code(s): R10.84 - Generalized abdominal pain Condition: Fair Report Scribed for: Elodia Ma Report Scribed by: Yola Valdes Date of Report: 10/08/17 Time of Report: 12:58 Physician Review and Approval Statement: 10/08/17 12:58 Portions of this note were transcribed by a spanish medical interpreter. I personally performed a history, physical exam, medical decision making, and confirmed accuracy of information the transcribed note.
[2017-10-08] MEDS ORDERED: ONDANSETRON 4 MG/2 ML VIAL ONE (13:15)
--- NOTE | 2017-10-08 13:15 | CPEKG ---
Heart Rate: 91 RR Interval: 659 P-R Interval: 148 QRSD Interval: 82 QT Interval: 368 QTC Interval: 453 P [place]: 50 QRS [place]: 40 T Wave [place]st: 63 EKG Severity - BORDERLINE ECG - EKG Impression: SINUS RHYTHM EKG Impression: PROBABLE LEFT ATRIAL ABNORMALITY Electronically Signed By: Mildred Marie 09-Oct-2017 15:16:12
[2017-10-08 13:26] LABS: PLATELET COUNT 300 10^3/uL (150-400)
[2017-10-08] MEDS ORDERED: LORazepam 2 MG/ML INJ ONE ×2 (13:26→16:32)
[2017-10-08] MEDS ORDERED: LORazepam 2 MG/ML INJ IVP ONE ×2 (13:27→16:34)
[2017-10-08] MEDS ORDERED: NS 1,000 ML IV ONE ×2 (13:27→14:05)
[2017-10-08 13:29] LABS: INR 1.7 (0.83-1.16); PROTIME(PATIENT) 20.1 SEC (12.0-15.0)
[2017-10-08] MEDS ORDERED: MAGNESIUM SULF 1 GM/DEXTROSE 100 ML IV ONE (16:34)
[2017-10-08] MEDS ORDERED: ONDANSETRON DISINTEGRATING 4 MG TAB PO PRN (18:01)
[2017-10-08] MEDS ORDERED: ONDANSETRON 4 MG/2 ML VIAL IVP PRN (18:01)
[2017-10-08] MEDS ORDERED: LIDOCAINE 5% TP PRN (18:04)
[2017-10-08] MEDS ORDERED: PROMETHAZINE HCL 25 MG/ML INJ IVP PRN (18:05)
[2017-10-08] MEDS ORDERED: POLYETHYLENE GLYCOL 3350 17 GM PKT PO ONE (18:11)
[2017-10-08] MEDS ORDERED: WARFARIN SODIUM 5 MG TAB PO SCH (18:15)
[2017-10-08] MEDS ORDERED: NS 1,000 ML IV SCH (18:15)
[2017-10-08] MEDS: oxyCODONE IR 5 MG TAB PO PRN (19:02)
[2017-10-08] MEDS: ACETAMINOPHEN 325 MG TAB PO PRN (19:03)
--- NOTE | 2017-10-08 19:08 | GHP ---
[f rep st] HISTORY AND PHYSICAL DATE OF ADMISSION: 10/08/2017 HISTORY OF PRESENT ILLNESS: The patient is a 67-year-old female who presents with abdominal pain. S he was actually seen by her primary care physician over the last couple of days for abdominal pain. She had a CT yesterday showing constipation, otherwise unremarkable. She gives a meandering history that describes some abdominal pain with bloating followed with some vo miting and then some diarrhea. She says she has a bowel movement every day. She does take chronic n arcotics. She describes fever and chills, but there has been no documented fever. She has not had u rinary symptoms such as urgency or dysuria. She does not have back pain. She has not had melena or bright red blood per rectum. She has not had shortness of breath. REVIEW OF SYSTEMS: Complete 10-point review of systems conducted and negative except as noted in the HPI. PAST MEDICAL HISTORY: 1. One episode of torsade de pointes in the setting of mild hypokalemia, mild hypomagnesemia, with Z ofran and tizanidine, with subsequent normal cardiac evaluation. 2. Chronic pain, on continuous narcotics. 3. Hypertension. 4. Factor V Leiden, on warfarin. 5. ALEJANDRA, on BiPAP. 6. Obesity with an active plan for weight loss. 7. Osteoarthritis. 8. Hypothyroidism. 9. Depression. 10. Fibromyalgia. ALLERGIES: Sumatriptan, fluoxetine, and adhesive tape. HOME MEDICATIONS: Fentanyl, gabapentin, levothyroxine, lidocaine, eyedrops, meloxicam, me thocarbamol, Toprol-XL, polyethylene glycol, pravastatin, tramadol, warfarin. SOCIAL HISTORY: She lives in [facility]. She does not smoke cigarettes or drink alcohol. He r partner is present with her. FAMILY HISTORY: Reviewed and unremarkable. PHYSICAL EXAMINATION: VITAL SIGNS: Temp 37.4, blood pressure 127/67, pulse 94, breathing 20 times a minute, 95% on 2 L. GENERAL: In no acute distress. HEENT: Sclerae anicteric. Oropharynx clear. Mucous membranes are moist. NECK: Supple. No lymphadenopathy or JVD. LUNGS: Clear to auscultati on bilaterally. HEART: S1, S2. ABDOMEN: Soft, nontender, nondistended. There is no rebound or gu arding. There are no masses. LOWER EXTREMITIES: Without edema. Calves are nontender. SKIN: With out rash. NEUROLOGIC: Nonfocal. LABORATORY DATA: White count 14.5. Hematocrit 51.5. Notably, it was 39.5 a couple of days ago. Pl atelets are 300,000. INR is 1.7. Sodium 142. Potassium 6, with repeat of 4.1. Chloride 101, bicar b 23, BUN 18, creatinine 0.7. Glucose 189. Total bilirubin is 2.3. AST is 72. She had a hemolyzed specimen with her hyperkalemia, and the subsequent one was not hemolyzed. Magnesium was 1.5. UA 2 days ago was negative. Abdominal CT scan yesterday showed constipation, otherwise unremarkable. EKG today interpreted by me shows sinus at 91 with normal axis and intervals. Her QT is 368, and it has decreased from her prev ious admission when she had torsade. Chest x-ray interpreted by me is unremarkable with no acute car diopulmonary disease. I have discussed the case with Dr. Yun Ma. ASSESSMENT AND PLAN: A 67-year-old female with abdominal pain, likely secondary to constipation. 1. Abdominal pain. She has no peritoneal signs. She has a mildly elevated white count. It may be attributed to her constipation versus viral gastroenteritis. I think at this point in time, we will go ahead and manage her with antiemetics and a dose of MiraLAX. Certainly, if she starts having prof use diarrhea, then abdominal film would be reasonable to see if she is still constipated. 2. Chronic pain. Continue her on fentanyl patch. I have written her for a little bit of oxycodone. 3. Sleep. The patient complains of poor sleep. I have given her some melatonin. 4. History of torsade. Will follow on telemetry. 5. Prophylaxis. The patient is therapeutically anticoagulated. Notably, she has a subtherapeutic I NR. We will repeat it in the morning. 6. Disposition: On observation status. /[id number]/MODL
[2017-10-08] MEDS: POLYETHYLENE GLYCOL 3350 17 GM PKT PO SCH (19:33)
[2017-10-08] MEDS: Lifitegrast [Xiidra] EACHEYE SCH (20:55)
[2017-10-08] MEDS ORDERED: PRAVASTATIN SODIUM 40 MG TAB PO SCH (21:00)
[2017-10-08] MEDS: GABAPENTIN 300 MG CAP PO SCH (21:01)
[2017-10-08] MEDS: traMADol 50 MG TAB PO SCH (23:34)
[2017-10-08] MEDS: METHOCARBAMOL 750 MG TAB PO SCH (23:34)
[2017-10-09] MEDS: oxyCODONE IR 5 MG TAB PO PRN (01:41)
[2017-10-09] MEDS ORDERED: MELATONIN 3 MG TAB PO PRN (02:29)
[2017-10-09] MEDS: ACETAMINOPHEN 325 MG TAB PO PRN ×2 (03:35→08:18)
[2017-10-09 05:09] LABS: PLATELET COUNT 165 10^3/uL (150-400)
[2017-10-09 05:33] LABS: INR 2.26 (0.83-1.16)
[2017-10-09] MEDS: GABAPENTIN 300 MG CAP PO SCH ×2 (05:48→13:11)
[2017-10-09] MEDS ORDERED: LEVOTHYROXINE 50 MCG TAB PO SCH (06:00)
[2017-10-09] MEDS: METHOCARBAMOL 750 MG TAB PO SCH (08:18)
[2017-10-09] MEDS: traMADol 50 MG TAB PO SCH (08:18)
[2017-10-09] MEDS: POLYETHYLENE GLYCOL 3350 17 GM PKT PO SCH (08:20)
[2017-10-09] MEDS: METOPROLOL SUCCINATE XR 50 MG TAB PO SCH ×3 (08:21→08:58)
[2017-10-09] MEDS: Lifitegrast [Xiidra] EACHEYE SCH (08:39)
[2017-10-09] MEDS ORDERED: Meloxicam [Meloxicam] 15 MG PO SCH (11:00)
[2017-10-09 11:09] VITALS: BP 113/57
--- NOTE | 2017-10-09 11:21 | ASMTCMCOM ---
CM Note CM Note Notes: Met with pt, states lives up [place] (not [place]), with her Adrianna. Pt has PT/OT ordered but she does not think she will need any home care. She states her may be away for work but if she dc's tomorrow, her will be available. They have plenty of food and 5 dogs to care for, anticipate pt will dc home w/support of when medically stable. CM available for any changes. DC Plan: Independent Date Signed: 10/09/2017 11:21 AM Electronically Signed By:Sosa Hays RN
[2017-10-09] MEDS ORDERED: MAGNESIUM SULF 2 GM/WATER 50 ML IV ONE (12:28)
[2017-10-09] MEDS ORDERED: SUMAtriptan 25 MG TAB PO ONE (12:29)
--- NOTE | 2017-10-09 12:33 | HOSPPROG ---
Hospitalist Progress Note Assessment/Plan: #Abdominal pain, acute on chronic -Etiology unclear -possibly from constipation per CT imaging -Was generalized on admission, now improving, mild LLQ pain #Constipation, resolving on stool softner #Migraine, acute on chronic -she is requesting po Imitrex. She reports no allergy to PO. Will give x 1 #Hypomagnesemia: will replace again today #Hx of recent Torsades, cont telemetry, repeat labs now to ensure electrolytes are within normal #Factor V Leiden and chronic AC -cont Warfarin -INR is at goal #Chronic Pain syndrome, on home narcotics Dispo: repeat labs provide lunch if still stable, discharge, otherwise keep overnight Subjective: feeling better. mild LLQ abd pain. she reports a migraine Objective: Vital Signs Temp Pulse Resp BP Pulse Ox 36.9 C 76 18 113/57 L 96 10/09/17 11:06 10/09/17 11:06 10/09/17 11:06 10/09/17 11:06 10/09/17 11:06 Laboratory Results 10/09/17 04:35 10/09/17 04:35 10/08/17 10/09/17 10/10/17 05:59 05:59 05:59 Intake Total 2100 Balance 2100 PT 25.0 SEC (12.0-15.0) H 10/09/17 04:35 INR 2.26 (0.83-1.16) H 10/09/17 04:35 - Physical Exam Constitutional: no apparent distress Eyes: PERRL, EOMI Ears, Nose, Mouth, Throat: moist mucous membranes, hearing normal Cardiovascular: regular rate and rhythym, No edema Respiratory: no respiratory distress, no rales or rhonchi, clear to auscultation Gastrointestinal: normoactive bowel sounds, tenderness (mild llq tenderness), No rebound, No distension Skin: warm Neurologic: AAOx3 Psychiatric: interacting appropriately, not anxious, not encephalopathic Lymph, Heme, Immunologic: No petechiae ICD10 Worksheet Patient Problems: Problems Problem Status Onset Abdominal pain Acute Vomiting Acute Arrhythmia Acute Chest pain Acute Hypokalemia Acute Hypomagnesemia Acute Shortness of breath Acute UTI (urinary tract infection) Acute
--- NOTE | 2017-10-09 14:35 | PDDCSUM ---
Discharge Summary Discharge Summary: 67 yo female with chronic abd pain (15 years) admitted with acute on chronic abd pain possibly from constipation vs functional. Improved overnight. All labs unremarkable. She is in agreement with d/c and f/u with GI of [facility] for further eval. DDX: #Abdominal pain, acute on chronic -Etiology unclear -possibly from constipation per CT imaging -Was generalized on admission, now improving, mild LLQ pain -isaac PO #Constipation, resolving on stool softner #Migraine, acute on chronic -Resolved with Imitrex. #Hypomagnesemia: replaced today #Hx of recent Torsades #Factor V Leiden and chronic AC -cont Warfarin -INR is at goal #Chronic Pain syndrome, on home narcotics Meds: see med rec: no changes were made Exam: see my progress note from today. f/u: Per above total time spent on discharge is 35 minutes. D/W nursing.
[2017-10-11] MEDS ORDERED: fentaNYL 75 MCG PATCH TD SCH (08:00)
[2017-10-11] MEDS ORDERED: WARFARIN SODIUM 5 MG TAB PO SCH (16:00)
== END 2017-10-09 16:01 | disposition home or self-care (01) ==
LOC: F3E 17:51
PROVIDERS: ADMIT Internal Medicine; ATTEND Family Medicine
DX: R10.84 Generalized abdominal pain (principal); K59.00 Constipation, unspecified; E86.9 Volume depletion, unspecified; D64.9 Anemia, unspecified; D68.2 Hereditary deficiency of other clotting factors; G89.4 Chronic pain syndrome; E83.42 Hypomagnesemia; G43.909 Migraine, unspecified, not intractable, without status migrainosus; I47.2 Ventricular tachycardia; F11.20 Opioid dependence, uncomplicated; G43.A0 Cyclical vomiting, in migraine, not intractable; G47.33 Obstructive sleep apnea (adult) (pediatric); F32.9 Major depressive disorder, single episode, unspecified; E03.9 Hypothyroidism, unspecified; E66.9 Obesity, unspecified; Z68.33 Body mass index [BMI] 33.0-33.9, adult; Z79.01 Long term (current) use of anticoagulants
CPT/HCPCS: 71046; 93005; 96361; 96374; 96376; 97161; 97165; 99285; G0378; G8978; G8979; G8980; G8987; G8988; G8989; J2060; J2405; J3475

== ENCOUNTER → 2017-12-27 | Outpatient (CLI) | payer OTHER | LOC: FIMAGING 13:17 | PROVIDERS: ATTEND Internal Medicine | DX: R33.9 Retention of urine, unspecified (principal); M54.9 Dorsalgia, unspecified ==

== ENCOUNTER 2018-01-09 14:31 | Emergency (ER) | payer OTHER ==
--- NOTE | 2018-01-09 14:44 | EDPHY ---
H & P Stated Complaint: freq uti/frequency now with ams which happens freq Time Seen by Provider: 01/09/18 14:43 HPI/ROS: HPI: This is a 67-year-old female who presents with Chief Complaint: freq uti/frequency now with ams which happens freq Location: Quality: Frequency Duration: Since last night Signs and Symptoms: no fever, no nausea, no vomiting, no hematemesis, no blood in stool, no abdominal bloating, no diarrhea, no back pain, + urinary symptoms, no vaginal bleeding/discharge, no indigestion, no chest pain, no shortness of breath Timing: Acute Severity: Moderate Context: Patient has multiple medical problems including frequent urinary tract infection, hypothyroidism, factor 5 Leiden deficiency on chronic anticoagulation, chronic pain continues narcotic dependency presents with her life partner with complaints of urinary frequency and burning since last night. Patient's partner reports that she is more confused than her baseline and not is articulate as she normally is. Chart review shows that patient was admitted to the hospital on 12/03/2017 for acute encephalopathy thought to be med tie factorial secondary to urinary tract infection. She has worked up for acute neurological causes and none were identified. He was also believe that polypharmacy may be contributing. Patient's partner reports that she had a low magnesium in the hospital and started on supplementation and takes 2 pills daily. Denies any fever, vomiting, diarrhea, abdominal pain. Patient has been using the bathroom approximately 10 times every hour Modifying Factors: None Comment: ROS: see HPI Constitutional: No fever, no chills, no weight loss Eyes: No blurred vision Respiratory: No shortness of breath, no cough Cardiovascular: No chest pain, no palpitations Gastrointestinal: No nausea, no vomiting, no diarrhea, no hematemesis, no blood in stool Genitourinary: No dysuria, no blood in urine Extremities: No myalgias, no edema Neurologic: No weakness, no numbness Skin: No rashes, no petechiae Hematologic: No bruising, no bleeding MEDICAL/SURGICAL/SOCIAL HISTORY: Medical history: ALEJANDRA, on continuous supplemental oxygen, torsades, Factor v Leiden deficiency, on chronic anticoagulation, history of migraines, chronic neuropathy, hypothyroidism, chronic pain with continuous narcotic dependency Surgical history: Denies 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 Family history noncontributory. CONSTITUTIONAL: awake and alert, no obvious distress HEENT: Atraumatic and normocephalic, PERRL, EOMI. Nares patent; no rhinorrhea; no nasal mucosal edema. Tympanic membranes clear. Oropharynx clear, no exudate and moist pink mucosa. Airway patent. No lymphadenopathy. No meningismus. Cardiovascular: Normal S1/S2, regular rate, regular rhythm, without murmur rub or gallop. PULMONARY/CHEST: Symmetrical and nontender. Clear to auscultation bilaterally. Good air movement. No accessory muscle usage. ABDOMEN: Soft, nondistended, nontender, no rebound, no guarding, no peritoneal signs, no masses or organomegaly. No CVAT. EXTREMITIES: 2/2 pulses, strength 5/5, no deformities, no clubbing, no cyanosis or edema. NEUROLOGICAL: no focal neuro deficits. GCS 15. SKIN: Warm and dry, no erythema. no rash. Good capillary refill. Source: Patient, Family (Partner) Exam Limitations: Clinical condition - Personal History Current Tetanus Diphtheria and Acellular Pertussis (TDAP): Unsure Tetanus Vaccine Date: unsure - Medical/Surgical History Hx Asthma: No Hx Chronic Respiratory Disease: No Hx Diabetes: No Hx Cardiac Disease: Yes Hx Renal Disease: No Hx Cirrhosis: No Hx Alcoholism: No Hx HIV/AIDS: No Hx Splenectomy or Spleen Trauma: No Other PMH: torsaddes/factor v leden deficiency - Social History Smoking Status: Never smoked Constitutional: Initial Vital Signs Temperature (C) 36.6 C 01/09/18 14:37 Heart Rate 73 01/09/18 14:37 Respiratory Rate 18 01/09/18 14:37 Blood Pressure 142/87 H 01/09/18 14:37 O2 Sat (%) 90 L 01/09/18 14:37 O2 Delivery Mode Room Air Allergies/Adverse Reactions: fluoxetine [From Prozac] Allergy (Mild, Verified 01/09/18 14:34) Other-Enter Comments adhesive tape Allergy (Verified 01/09/18 14:34) sumatriptan Allergy (Verified 01/09/18 14:34) Home Medications: Medication Instructions Recorded Gabapentin [Neurontin 300 MG (*)] 300 mg PO BID 08/24/17 Levothyroxine Sodium 50 mcg PO DAILY@06 08/24/17 Lifitegrast [Xiidra] 1 drop EACHEYE BID 08/24/17 Pravastatin Sodium 40 mg PO HS 08/24/17 Warfarin Sodium [Coumadin 5MG (*)] 5 mg PO SUTUWETHFRSA 08/24/17 fentaNYL [Fentanyl] 75 mcg TD Q3D 08/24/17 Lidocaine 5% [Lidocaine 5% Oint] 1 janki TP TID PRN 10/08/17 Metoprolol Succinate Xr [Toprol Xl 50 mg PO DAILY 10/08/17 25 mg (*)] Polyethylene Glycol 3350 [Miralax 17 gm PO DAILY PRN 10/08/17 17 gm (*)] Warfarin Sodium [Coumadin 5MG (*)] 7.5 mg PO MO@16 10/08/17 Methocarbamol [Robaxin 750 mg (*)] 750 mg PO QID 12/04/17 Nabumetone [Relafen 500 mg (*)] 500 mg PO BIDMEAL 12/04/17 Cefuroxime Axetil [Ceftin (*)] 250 mg PO BID #14 tab 01/09/18 Medical Decision Making ED Course/Re-evaluation: Vital signs reviewed and stable. O2 sats 90% on room air and when placed on 2 L nasal cannula which is patient's baseline O2 sats are 96%. Labs, urinalysis, IV fluids ordered Given 1 L normal saline. Patient refused an in out catheterization to obtain urine sample. 1530: Labs reviewed. No signs of leukocytosis/anemia/platelet dysfunction/YEIMI/ elevated LFTs/electrolyte imbalance. INR is 2 Urinalysis shows no signs of infection. As it is a holiday, patient's partners asking for an antibiotic for urinary tract infection "just in case." Rx Ceftin given. They will follow up next week with primary care provider and they report they will be following up with Urology as well. No indication to reimage for neurological etiology. ' This patient was seen under the supervision of my secondary supervising physician. I evaluated care for this patient independently. Discussed this patient with Dr. Whitney. Differential Diagnosis: Altered mental status including but not limited to hypoglycemia, infectious process, electrolyte abnormality, head injury and intoxicants. - Data Points Laboratory Results: Laboratory Results 01/09/18 14:53 01/09/18 14:53 01/09/18 01/09/18 01/09/18 14:53 14:53 14:53 WBC 6.50 10^3/uL 10^3/uL (3.80-9.50) RBC 4.25 10^6/uL 10^6/uL (4.18-5.33) Hgb 13.2 g/dL g/dL (12.6-16.3) Hct 39.5 % % (38.0-47.0) MCV 92.9 fL fL (81.5-99.8) MCH 31.1 pg pg (27.9-34.1) MCHC 33.4 g/dL g/dL (32.4-36.7) RDW 12.7 % % (11.5-15.2) Plt Count 197 10^3/uL 10^3/uL (150-400) MPV 10.0 fL fL (8.7-11.7) Neut % (Auto) 56.7 % % (39.3-74.2) Lymph % (Auto) 35.4 % % (15.0-45.0) [place] % (Auto) 6.3 % % (4.5-13.0) Eos % (Auto) 0.5 % L % (0.6-7.6) Baso % (Auto) 0.8 % % (0.3-1.7) Nucleat RBC Rel Count 0.0 % % (0.0-0.2) Absolute Neuts (auto) 3.69 10^3/uL 10^3/uL (1.70-6.50) Absolute Lymphs (auto) 2.30 10^3/uL 10^3/uL (1.00-3.00) Absolute Monos (auto) 0.41 10^3/uL 10^3/uL (0.30-0.80) Absolute Eos (auto) 0.03 10^3/uL 10^3/uL (0.03-0.40) Absolute Basos (auto) 0.05 10^3/uL 10^3/uL (0.02-0.10) Absolute Nucleated RBC 0.00 10^3/uL 10^3/uL (0-0.01) Immature Gran % 0.3 % % (0.0-1.1) Immature Gran # 0.02 10^3/uL 10^3/uL (0.00-0.10) PT 23.2 SEC H SEC (12.0-15.0) INR 2.05 H (0.83-1.16) Sodium 137 mEq/L mEq/L (135-145) Potassium 3.9 mEq/L mEq/L (3.3-5.0) Chloride 101 mEq/L mEq/L (97-110) Carbon Dioxide 32 mEq/l H mEq/l (22-31) Anion Gap 4 mEq/L L mEq/L (8-16) BUN 14 mg/dL mg/dL (7-23) Creatinine 0.7 mg/dL mg/dL (0.6-1.0) Estimated GFR > 60 Glucose 96 mg/dL mg/dL (70-100) Calcium 10.7 mg/dL H mg/dL (8.5-10.4) Phosphorus 3.8 mg/dL mg/dL (2.5-4.5) Magnesium 2.0 mg/dL mg/dL (1.6-2.3) Total Bilirubin 0.8 mg/dL mg/dL (0.1-1.4) Conjugated Bilirubin 0.4 mg/dL mg/dL (0.0-0.5) Unconjugated Bilirubin 0.4 mg/dL mg/dL (0.0-1.1) AST 23 IU/L IU/L (14-46) ALT 34 IU/L IU/L (9-52) Alkaline Phosphatase 75 IU/L IU/L (38-126) Total Protein 7.6 g/dL g/dL (6.3-8.2) Albumin 4.5 g/dL g/dL (3.5-5.0) Urine Color Urine Appearance Urine pH Ur Specific [place] Urine Protein Urine Ketones Urine Blood Urine Nitrate Urine Bilirubin Urine Urobilinogen Ur Leukocyte Esterase Urine Glucose 01/09/18 14:40 WBC RBC Hgb Hct MCV MCH MCHC RDW Plt Count MPV Neut % (Auto) Lymph % (Auto) [place] % (Auto) Eos % (Auto) Baso % (Auto) Nucleat RBC Rel Count Absolute Neuts (auto) Absolute Lymphs (auto) Absolute Monos (auto) Absolute Eos (auto) Absolute Basos (auto) Absolute Nucleated RBC Immature Gran % Immature Gran # PT INR Sodium Potassium Chloride Carbon Dioxide Anion Gap BUN Creatinine Estimated GFR Glucose Calcium Phosphorus Magnesium Total Bilirubin Conjugated Bilirubin Unconjugated Bilirubin AST ALT Alkaline Phosphatase Total Protein Albumin Urine Color YELLOW Urine Appearance HAZY Urine pH 5.0 (5.0-7.5) Ur Specific [place] 1.030 (1.002-1.030) Urine Protein NEGATIVE (NEGATIVE) Urine Ketones TRACE H (NEGATIVE) Urine Blood NEGATIVE (NEGATIVE) Urine Nitrate NEGATIVE (NEGATIVE) Urine Bilirubin POSITIVE H (NEGATIVE) Urine Urobilinogen 2.0 EU H EU (0.2-1.0) Ur Leukocyte Esterase NEGATIVE (NEGATIVE) Urine Glucose NEGATIVE (NEGATIVE) Medications Given: Discontinued Medications Sodium Chloride (Ns) 1,000 mls @ 0 mls/hr IV ONCE ONE; Wide Open PRN Reason: Protocol Stop: 01/09/18 14:54 Last Admin: 01/09/18 15:10 Dose: 1,000 mls Departure - Departure Disposition: Home, Routine, Self-Care Clinical Impression: History of UTI Condition: Good Instructions: Urinary Tract Infection in Women (ED), Altered Mental Status (ED) Additional Instructions: Return at once for any worsening symptoms or concerns. Follow-up with primary care provider early next week. Referrals: Barbara Ely MD [Primary Care Provider] - 2-3 days without fail Prescriptions: Cefuroxime Axetil [Ceftin (*)] 250 mg PO BID #14 tab
[2018-01-09] MEDS ORDERED: NS 1,000 ML IV ONE (14:53)
[2018-01-09 15:10] LABS: PLATELET COUNT 197 10^3/uL (150-400)
[2018-01-09 15:18] LABS: INR 2.05 (0.83-1.16); PROTIME(PATIENT) 23.2 SEC (12.0-15.0)
[2018-01-09 16:40] VITALS: BP 140/89
== END 2018-01-09 16:36 | disposition home or self-care (01) ==
DX: N39.0 Urinary tract infection, site not specified (principal); E86.9 Volume depletion, unspecified; Z79.01 Long term (current) use of anticoagulants

== ENCOUNTER 2018-02-03 19:22 | Inpatient (IN) | payer OTHER ==
--- NOTE | 2018-02-03 19:25 | EDPHY ---
HPI/HX/ROS/PE/MDM Narrative: CHIEF COMPLAINT: Altered mental status - Stroke alert HISTORY OF PRESENT ILLNESS: The patient is an anticoagulated (warfarin) 67 y/ o female with a history of frequent urinary tract infections, Factor 5 Leiden deficiency, and migraines arriving as a stroke alert for altered mental status. Around 10:00 to 11:00 AM, 6 to 7 hours ago, she spoke on the phone with her partner and informed her that she was feeling tired. Her partner reports that at that time she was at her baseline. Her partner got home a few hours later and found her sleeping. Her partner was taking a nap when she awoke to the patient grabbing at her legs. Her partner asked her what was wrong and all she would say was "no". She was confused and wouldn't talk or follow commands, prompting her partner to call EMS. Her partner denies alcohol, marijuana, or illicit drug use. Information obtained from partner and EMS due to patient's condition. REVIEW OF SYSTEMS: Unobtainable secondary to patient's condition. PAST MEDICAL HISTORY: Factor 5 Leiden deficiency, frequent urinary tract infections, migraines, chronic pain with opioid dependancy, chronic neuropathy, hypothyroidism, torsades, parathyroidectomy SOCIAL HISTORY: Lives in [place], retired, partner at bedside VITAL SIGNS: Reviewed by me GENERAL: Well-developed, well-nourished, resting comfortably in no respiratory distress. More responsive when standing on right side. Intermittently follows commands. HEENT: Atraumatic. Eyes: No icterus, no injection. Mouth: moist mucous membranes. No erythema or lesions. Neck: supple with no adenopathy. LUNGS: Clear to auscultation bilaterally, no wheezes, rhonchi or rales. CARDIAC: Regular rate and rhythm, no rubs, murmurs or gallops. ABDOMEN: Soft, nondistended, bowel sounds normal. BACK: No CVA tenderness. EXTREMITIES: No trauma. No edema. Range of motion is normal throughout. NEURO: Alert and oriented to person. More responsive when standing on her right side. Only says her name "Sandee". Possibly slightly stronger on her left side compared to right. Eyes are open and she will look to the person speaking. Intermittently follows basic commands when prompted several times. SKIN: Warm and dry, no rash. ED Course: CT: Head CT was obtained. I viewed the images myself on the PACS system. My interpretation of the images is: Normal head. The radiologist interpretation is negative for acute findings. CTA: Head and neck CTA was obtained. I viewed the images myself on the PACS system. My interpretation of the images is: negative for acute findings. The radiologist interpretation is negative for acute finding, incomplete hoh of [place]. I met this patient on arrival to the emergency department. She came in as a stroke alert after her partner found her with altered mental status. Her last normal is 10:00 AM. Brief exam was performed on arrival. Possible slight left- sided neglect. She is only able to state her name when prompted several times. She does not say anything else. She will look at the person speaking. Stat non con head CT ordered with and CT angiogram of the head head and neck to follow if head CT is negative for acute hemorrhage. Plan for CBC, basic metabolic panel, coagulation panel, iSTAT, and drug screen. 7:40 PM - no hemorrhage identified on the head CT, no acute findings. CT-angio of head and neck currently being done. 8:15 PM - The head CT and CT-angios are both negative for acute findings. I reassessed this patient and spoke with her partner. Her partner informs me that she recently had a parathyroid surgery and has been having issues with calcium and magnesium. Dr. Knight from [facility] assessed. The patient examined via stroke robot. The specific question acid Dr. Knight was whether the patient requires continuous EEG monitoring for possible ongoing seizures or status epilepticus. Dr. Knight's impression is that the patient is encephalopathic and less likely atypical seizure. He advises to add ammonia, EEG, and magnesium in addition to liver enzymes, lipase, and chest x-ray. Of note the patient is on a significant number of central acting medications. Urine tox screen alcohol or pending at the time of this dictation. 8:45 PM - I spoke with Dr. Zaman, regarding admission for this patient. He will be the admitting physician. MDM: After the history was obtained and physical exam performed, the following differential for the patient's altered mental status/ confusion was considered included but was not limited to hypoglycemia, electrolyte disturbances, intracranial hemorrhage, tumor, drug or alcohol intoxication, medication side effect, status epilepticus, stroke, or TIA. - Data Points Imaging Results: Imaging Impressions Chest X-Ray 02/03/18 19:25 Impression: Mild cardiomegaly with pulmonary vascular congestion, likely accentuated by technique. Head CT 02/03/18 19:25 Impression: 1. No acute intracranial process. 2. Age-appropriate generalized cerebral volume loss with sequela of chronic microvascular ischemic disease. Findings and recommendations discussed with Bria Vang MD at 1935 hour, . Head CTA 02/03/18 19:27 Impression: Suggestion of incomplete hoh of [place]. Otherwise, unremarkable angiograms. Stenoses are calculated using [place] Symptomatic Carotid Endarterectomy Trial (NASCET) criteria. Findings and recommendations discussed with Bria Vang MD at 2004 hour, . Neck CTA 02/03/18 19:27 Impression: Suggestion of incomplete hoh of [place]. Otherwise, unremarkable angiograms. Stenoses are calculated using [place] Symptomatic Carotid Endarterectomy Trial (NASCET) criteria. Findings and recommendations discussed with Bria Vang MD at 2004 hour, . Imaging: Discussed imaging studies w/ call center dispatcher Radiologist Laboratory Results: Laboratory Results 02/03/18 19:33 02/03/18 19:33 02/03/18 02/03/18 02/03/18 20:33 20:32 19:33 WBC RBC Hgb POC Hgb Hct POC Hct MCV MCH MCHC RDW Plt Count MPV Neut % (Auto) Lymph % (Auto) [place] % (Auto) Eos % (Auto) Baso % (Auto) Nucleat RBC Rel Count Absolute Neuts (auto) Absolute Lymphs (auto) Absolute Monos (auto) Absolute Eos (auto) Absolute Basos (auto) Absolute Nucleated RBC Immature Gran % Immature Gran # PT INR POC Sodium Sodium 142 mEq/L mEq/L (135-145) POC Potassium Potassium 4.5 mEq/L mEq/L (3.3-5.0) POC Chloride Chloride 103 mEq/L mEq/L (97-110) Carbon Dioxide 31 mEq/l mEq/l (22-31) Anion Gap 8 mEq/L mEq/L (8-16) POC BUN BUN 20 mg/dL mg/dL (7-23) Creatinine 0.7 mg/dL mg/dL (0.6-1.0) POC Creatinine Estimated GFR > 60 Glucose 113 mg/dL H mg/dL (70-100) POC Glucose Calcium 9.2 mg/dL mg/dL (8.5-10.4) Magnesium Pending Total Bilirubin Pending Conjugated Bilirubin Pending Unconjugated Bilirubin Pending AST Pending ALT Pending Alkaline Phosphatase Pending Ammonia 18.0 uMOL/L uMOL/L (9.0-30.0) Total Protein Pending Albumin Pending Lipase Pending 02/03/18 02/03/18 02/03/18 19:33 19:29 19:25 WBC 6.90 10^3/uL 10^3/uL (3.80-9.50) RBC 4.39 10^6/uL 10^6/uL (4.18-5.33) Hgb 13.8 g/dL g/dL (12.6-16.3) POC Hgb 13.3 gm/dL gm/dL (12.6-16.3) Hct 40.5 % % (38.0-47.0) POC Hct 39 % % (38-47) MCV 92.3 fL fL (81.5-99.8) MCH 31.4 pg pg (27.9-34.1) MCHC 34.1 g/dL g/dL (32.4-36.7) RDW 11.9 % % (11.5-15.2) Plt Count 222 10^3/uL 10^3/uL (150-400) MPV 10.3 fL fL (8.7-11.7) Neut % (Auto) 59.8 % % (39.3-74.2) Lymph % (Auto) 32.9 % % (15.0-45.0) [place] % (Auto) 5.8 % % (4.5-13.0) Eos % (Auto) 0.7 % % (0.6-7.6) Baso % (Auto) 0.7 % % (0.3-1.7) Nucleat RBC Rel Count 0.0 % % (0.0-0.2) Absolute Neuts (auto) 4.12 10^3/uL 10^3/uL (1.70-6.50) Absolute Lymphs (auto) 2.27 10^3/uL 10^3/uL (1.00-3.00) Absolute Monos (auto) 0.40 10^3/uL 10^3/uL (0.30-0.80) Absolute Eos (auto) 0.05 10^3/uL 10^3/uL (0.03-0.40) Absolute Basos (auto) 0.05 10^3/uL 10^3/uL (0.02-0.10) Absolute Nucleated RBC 0.00 10^3/uL 10^3/uL (0-0.01) Immature Gran % 0.1 % % (0.0-1.1) Immature Gran # 0.01 10^3/uL 10^3/uL (0.00-0.10) PT 31.6 SEC H SEC (12.0-15.0) INR 3.08 H (0.83-1.16) POC Sodium 145 mEq/L mEq/L (135-145) Sodium POC Potassium 4.3 mEq/L mEq/L (3.3-5.0) Potassium POC Chloride 105 mEq/L mEq/L (97-110) Chloride Carbon Dioxide Anion Gap POC BUN 19 mg/dL mg/dL (7-23) BUN Creatinine POC Creatinine 0.8 mg/dL mg/dL (0.6-1.0) Estimated GFR Glucose POC Glucose 112 mg/dL H mg/dL (70-100) Calcium Magnesium Total Bilirubin Conjugated Bilirubin Unconjugated Bilirubin AST ALT Alkaline Phosphatase Ammonia Total Protein Albumin Lipase Point of Care Test Results: Chemistry 02/03/18 19:29 POC Sodium 145 mEq/L mEq/L (135-145) POC Potassium 4.3 mEq/L mEq/L (3.3-5.0) POC Chloride 105 mEq/L mEq/L (97-110) POC BUN 19 mg/dL mg/dL (7-23) POC Creatinine 0.8 mg/dL mg/dL (0.6-1.0) POC Glucose 112 mg/dL H mg/dL (70-100) ISTAT H&H 02/03/18 19:29 POC Hgb 13.3 gm/dL gm/dL (12.6-16.3) POC Hct 39 % % (38-47) General Time Seen by Provider: 02/03/18 19:22 Initial Vital Signs: Initial Vital Signs Temperature (C) 36.8 C 02/03/18 19:43 Heart Rate 62 02/03/18 19:43 Respiratory Rate 16 02/03/18 19:43 Blood Pressure 126/81 H 02/03/18 19:43 O2 Sat (%) 97 02/03/18 19:43 O2 Delivery Mode Room Air O2 (L/minute) 2 Allergies/Adverse Reactions: fluoxetine [From Prozac] Allergy (Mild, Verified 01/09/18 14:34) Other-Enter Comments adhesive tape Allergy (Verified 01/09/18 14:34) sumatriptan Allergy (Verified 01/09/18 14:34) Home Medications: Medication Instructions Recorded Gabapentin [Neurontin 300 MG (*)] 300 mg PO BID 08/24/17 Levothyroxine Sodium 50 mcg PO DAILY@06 08/24/17 Lifitegrast [Xiidra] 1 drop EACHEYE BID 08/24/17 Pravastatin Sodium 40 mg PO HS 08/24/17 Warfarin Sodium [Coumadin 5MG (*)] 5 mg PO SUTUWETHFRSA 08/24/17 fentaNYL [Fentanyl] 75 mcg TD Q3D 08/24/17 Lidocaine 5% [Lidocaine 5% Oint] 1 janki TP TID PRN 10/08/17 Metoprolol Succinate Xr [Toprol Xl 50 mg PO DAILY 10/08/17 25 mg (*)] Polyethylene Glycol 3350 [Miralax 17 gm PO DAILY PRN 10/08/17 17 gm (*)] Warfarin Sodium [Coumadin 5MG (*)] 7.5 mg PO MO@16 10/08/17 Methocarbamol [Robaxin 750 mg (*)] 750 mg PO QID 12/04/17 Nabumetone [Relafen 500 mg (*)] 500 mg PO BIDMEAL 12/04/17 Cefuroxime Axetil [Ceftin (*)] 250 mg PO BID #14 tab 01/09/18 Departure - Departure Disposition: [facility] Acute Clinical Impression: Confusion Altered mental status Qualifiers: Altered mental status type: unspecified Qualified Code(s): R41.82 - Altered mental status, unspecified Condition: Fair Referrals: Patient,NotPresent [Unknown] - As per Instructions Report Scribed for: Bria Vang Report Scribed by: Idalia Bronson Date of Report: 02/03/18 Time of Report: 20:30 Physician Review and Approval Statement: Portions of this note were transcribed by a biomedical scientist. I personally performed a history, physical exam, medical decision making, and confirmed accuracy of information the transcribed note.
[2018-02-03 19:39] LABS: PLATELET COUNT 222 10^3/uL (150-400)
[2018-02-03 19:46] LABS: INR 3.08 (0.83-1.16); PROTIME(PATIENT) 31.6 SEC (12.0-15.0)
--- NOTE | 2018-02-03 19:49 | CPEKG ---
Heart Rate: 61 RR Interval: 984 P-R Interval: 188 QRSD Interval: 88 QT Interval: 476 QTC Interval: 480 P Aneta: 47 QRS Aneta: 54 T Wave Aneta: 51 EKG Severity - NORMAL ECG - EKG Impression: SINUS RHYTHM Electronically Signed By: Bria Vang 03-Feb-2018 22:35:33
[2018-02-03] MEDS ORDERED: NALOXONE HCL 0.4 MG/ML INJ IVP ONE (22:05)
[2018-02-03] MEDS ORDERED: ACETAMINOPHEN 325 MG TAB PO PRN (22:14)
[2018-02-03] MEDS ORDERED: ONDANSETRON 4 MG/2 ML VIAL IVP PRN (22:14)
[2018-02-03] MEDS ORDERED: ONDANSETRON DISINTEGRATING 4 MG TAB PO PRN (22:14)
[2018-02-03] MEDS ORDERED: NS 1,000 ML IV SCH (22:15)
--- NOTE | 2018-02-03 23:16 | GHP ---
[f rep st] HISTORY AND PHYSICAL DATE OF ADMISSION: 02/03/2018 CHIEF COMPLAINT: Altered mental status. HISTORY OF PRESENT ILLNESS: This is a 67-year-old female with multiple admissions this year for vari ous reasons who presents with altered mental status. Her partner spoke with her around 9 or 10 this morning and tells me that she was completely normal. Her partner returned home around 2:30 in the [facility] to find her asleep. She noticed that she was trying to pull her right leg over her left knee while she was sleeping. After she woke up, she was extremely confused. She had some minor twitchin g motion with her right arm. She was really unable to follow commands or express herself in any way. Her partner thus called 911. She has a history of an admission about 2 months ago for the same. I t was unclear the exact etiology. She saw Neurology on that visit who recommended psychiatry consult . She was found have a possible urinary tract infection which was treated with improvement in her sy mptoms. Thus, she was discharged. She has been on a stable dose of medications including fentanyl p atch, as well as tramadol, Lyrica and Robaxin, which have not been changed recently. She is also on gabapentin. She had a brain MRI done in November which showed some atrophy and small vessel disease but n othing acute. She was seen by Teleneurology here with question of possible subclinical seizures. Dr Amrit Knight felt that she was encephalopathic and did not recommend an emergent EEG. 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 PAST MEDICAL/SURGICAL HISTORY: 1. Factor V Leiden. 2. Recent parathyroidectomy. 3. History of urinary tract infection. 4. Migraines. 5. Chronic pain on continuous narcotics. 6. Neuropathy. 7. Hypothyroid. 8. History of torsade. 9. ALEJANDRA. 10. Osteoarthritis. 11. Depression. 12. Fibromyalgia. MEDICATIONS: Please see medication reconciliation. ALLERGIES: Prozac, adhesive tape, and Imitrex. FAMILY HISTORY: Reviewed and noncontributory. SOCIAL HISTORY: She is accompanied by her partner. REVIEW OF SYSTEMS: A 10-point review of systems is conducted and is negative except per HPI. PHYSICAL EXAMINATION: VITAL SIGNS: Blood pressure 126/81, heart rate 62, respiration rate 16, satur ating 97% on room air. Temperature 36.8. GENERAL: Ms. Lainez is a confused lady, lying in bed, mos tly sleeping but will arouse to voice. She will occasionally follow commands. HEENT: Shows her to be normocephalic, atraumatic. She does not have any tongue lacerations. CARDIOVASCULAR: Regular ra te and rhythm. There are no murmurs, rubs, or gallops. PULMONARY: Lungs clear to auscultation bila terally. ABDOMEN: Soft, nontender, nondistended. SKIN: No rash. : She has no Munoz. NEUROLOG IC: Difficult given her lack of cooperation. She does not have any obvious facial droop or other cr anial nerve issues. She is moving all of her extremities, though motor is really unable to be assess ed. Sensation is also not assessed. PSYCHIATRIC: Also inaccessible. LABORATORY DATA: CBC is normal. INR is 3.08. Basic metabolic panel is unremarkable. Creatinine 0. 7. AST is mildly elevated at 49. Bilirubin is 0.6. Her ammonia is 18. Her tox screen is negative. LABORATORY DATA: 1. I reviewed her imaging including neck CTA and head CTA both of which show possible incomplete cir robert of [place]. Otherwise are unremarkable. 2. Her head CT shows nothing acute. 3. Chest x-ray also shows nothing acute. I personally viewed and interpreted this. 4. Her EKG, which I personally viewed and interpreted, shows it is an overall poor quality EKG. It is sinus rhythm. There is nothing acutely ischemic here. No ST changes. No T-wave inversions. No Q-waves. IMPRESSION AND PLAN: 1. Encephalopathy: This is somewhat of a recurrent problem. Considerations include hypercapnia, antony bclinical seizures, medication-induced. Certainly other metabolic causes should be considered. I dye ve ordered ABG. If this is negative, would recommend Neurology consult tomorrow with consideration o f an EEG. Given that this episode is very similar to her previous, I do not think we need to repeat a brain MRI at this point. She was seen by Teleneurology already, who did not recommend any addition al imaging. Does not appear to be a stroke clinically. 2. Factor V Leiden: Continue her warfarin. 3. History of parathyroidectomy: She will need calcium replacement. 4. Chronic pain: We will cautiously continue her medications. We will hold them for now. 5. Hypothyroid: Check a TSH and continue her Synthroid. /[id number]/MODL
[2018-02-03] MEDS ORDERED: Lidocaine 5% [Lidocaine 5% Oint] 1 APP TP PRN (23:19)
[2018-02-03] MEDS ORDERED: POLYETHYLENE GLYCOL 3350 17 GM PKT PO PRN (23:19)
[2018-02-03] MEDS ORDERED: WARFARIN SODIUM 5 MG TAB PO SCH (23:30)
[2018-02-04 05:25] LABS: PLATELET COUNT 182 10^3/uL (150-400)
[2018-02-04] MEDS: LEVOTHYROXINE 50 MCG TAB PO SCH (05:40)
[2018-02-04] MEDS ORDERED: WARFARIN SODIUM 5 MG TAB PO SCH (08:00)
[2018-02-04] MEDS ORDERED: Lifitegrast [Xiidra] OP SCH (09:00)
[2018-02-04] MEDS ORDERED: OLANZapine 2.5 MG TAB PO ONE (09:56)
--- NOTE | 2018-02-04 10:38 | NEUROPROG ---
Assessment: HOSPITAL NEUROLOGY CONSULT REQUESTING: Gómez Zaman MD REASON: AMS HPI: 67 year old woman with a history of Factor V Leiden (on AC), chronic pain (on fentanyl patch, Lyrica, tramadol and Robaxin) who presented to the ED due to AMS. History is obtained from records review and the patient's . Patient was apparently normal yesterday morning around 9 or 10am. Patient took a nap. When she woke from the nap in the early afternoon she was acting out of sorts. Patient's , Adrianna, was also napping and the patient woke her by pulling on her legs. Patient would on say "no." Adrianna got the patient to sit on the bed and the patient was just looking around bewildered. Adrianna states the patient's right arm and both legs were trembling, "but not like a seizure, I know seizures cause I have a nephew with epilepsy." Patient didn't seem to produce any verbal output, so EMS was summoned. Patient became very agitated overnight and is now hallucinating that there is a man in the corner of her room. Patient this morning is very angry and yelling expletives. Patient's though processes are very disorganized. Adrianna notes that the patient has had spells like this in the past. They were in the ED on 01/09 for another episode of AMS. Patient was hospitalized 12/04 with a very similar episode, including agitation and hallucinations. Adrianna states these episodes are attributable to UTIs, however, on records review her UA was clean on 01/09 and her November hospitalization UCx on grew david. On November hospitalization she had an MRI brain brain wo showing nothing acute and just volume loss and chronic microvascular ischemic changes in the white matter. Patient has apparently returned to baseline each time within 2-3 days of getting antibiotics for reported UTIs. In between episodes the patient is apparently her normal, calm self without any behavioral disturbance or cognitive changes. Patient has not had fevers, chills, any other recent illness , neck stiffness, photophobia. No indication of true convulsive activity. ROS: As per the HPI, otherwise a complete 12 point ROS was performed and is negative ALLERGIES AND MEDS: As recorded in the EMR - reviewed and reconciled PFSH: As per the intake H&P by Dr. Zaman from yesterday EXAM: VS reviewed in EMR GEN: WDWN laying in bed visibly agitated HEENT: NCAT, sclera anicteric, conjunctiva not injected, MMM, oropharynx clear, no scalp tenderness NECK: supple, nontender, no meningismus CV: RRR s1 s2 wo m/r/c/g. Carotid pulses 2+ wo bruit NEURO: MS: awake, alert, oriented to self and that she is in a hospital, but nothing more. Speech nondysarthric. No obvious language disturbance. Follows commands when I can clam her. Attends to both sides. She is agitated and shouting expletives. Cannot get a good sense of memory or fund of knowledge. She is actively hallucinating about a man in the corner and when leaving the room she is seen speaking to this hallucination and shaking her fist at it. She seems to perhaps have a delusion that Adrianna has abandoned her at the hospital. CN: pupils 3mm round and reactive. Unable to visualize fundi. VFF. Primary gaze centered. Restricted vertical gaze. Facial sensation preserved. Face symmetric. Hearing grossly intact to finger rub. Palatoglossal movements intact. Shoulder shrug and head turn strong. MOTOR: normal bulk/tone. No adventitial movements. Full power throughout. SENSORY: intact to LT throughout the extremities and symmetric. No extinction. COORD: no ataxia FN/HS. Bette preserved. REFLEX: plantars down. No clonus. DTRS 1/4. GAIT: deferred for safety DATA REVIEW: Labs reviewed in EMR PERSONALLY INTERPRETED RESULTS AND DATA: CT head wo - nothing acute IMPRESSION AND RECOMMENDATIONS: // ACUTE ENCEPHALOPATHY - RECURRENT // HX CHRONIC PAIN // HX POLYPHARMACY Patient with paroxysms of abnormal behaviors and dramatic departure from her baseline norm, which is usually calm and without any cognitive impairment. This may be a primary psych issue, neurodegenerative disease (behavioral FTD), toxic/metabolic state. Less likely seizure, but will check EEG once she is calmer. Would also recommend repeating MRI brain, but this time wow to assess for any abnormal enhancement. May need to pursue LP with investigation for PNP/ autoimmune encephalitis. All of these measures cannot be undertaken until she is calmer. I have ordered for olanzapine 2.5mg and we can increase this if needed. This may serve as a diagnostic measure, as well. Will follow. Objective: Vital Signs Temp Pulse Resp BP Pulse Ox 37.1 C 72 18 155/77 H 93 02/04/18 08:15 02/04/18 08:15 02/04/18 08:15 02/04/18 08:15 02/04/18 08:15 Laboratory Results 02/04/18 04:28 02/04/18 04:28 02/03/18 02/04/18 02/05/18 05:59 05:59 05:59 Output Total 450 Balance -450 PT 31.6 SEC (12.0-15.0) H 02/03/18 19:25 INR 3.08 (0.83-1.16) H 02/03/18 19:25 Allergies/Adverse Reactions: fluoxetine [From Prozac] Allergy (Mild, Verified 01/09/18 14:34) Other-Enter Comments adhesive tape Allergy (Verified 01/09/18 14:34) sumatriptan Allergy (Verified 01/09/18 14:34)
[2018-02-04] MEDS ORDERED: traMADol 50 MG TAB PO PRN (10:43)
[2018-02-04] MEDS ORDERED: fentaNYL 75 MCG PATCH TD SCH ×2 (10:45→12:30)
[2018-02-04] MEDS: METOPROLOL SUCCINATE XR 50 MG TAB PO SCH (11:18)
[2018-02-04] MEDS: Lifitegrast [Xiidra] EACHEYE SCH ×2 (11:19→22:04)
[2018-02-04] MEDS: METHOCARBAMOL 750 MG TAB PO SCH ×3 (11:20→22:01)
[2018-02-04] MEDS: [UNRECOGNIZED DRUG - OTHER] PO SCH ×3 (11:21→22:01)
[2018-02-04] MEDS: ENOXAPARIN 40 MG/0.4 ML SYR SC SCH (11:21)
[2018-02-04] MEDS: [UNRECOGNIZED DRUG - OTHER] PO PRN ×2 (11:38→15:30)
[2018-02-04] MEDS: LORazepam 2 MG/ML INJ IVP PRN ×4 (11:38→23:35)
[2018-02-04 12:11] LABS: INR 2.86 (0.83-1.16); PROTIME(PATIENT) 29.9 SEC (12.0-15.0)
[2018-02-04] MEDS: NABUMETONE 500 MG TAB PO SCH ×2 (12:34→18:00)
--- NOTE | 2018-02-04 14:39 | ASMTCMCOM ---
CM Note CM Note Notes: Pt here with AMS, confusion. Pt was at [facility] with similar presentation 11/26. Then pt d/c independent after clearing from antibiotics for UTI. Pt was recommended to follow up with a psych consult. Pt has history of depression. Pt combative and agitated today, PT/OT evals on hold and CM did not meet w pt. Neurology consulting and pt having medical work up. Pt resides with partner. D/c needs TBD. Date Signed: 02/04/2018 02:38 PM Electronically Signed By:CONNIE Spain
[2018-02-04] MEDS ORDERED: SUMAtriptan 50 MG TAB PO ONE (14:50)
[2018-02-04] MEDS: GABAPENTIN 300 MG CAP PO SCH ×2 (15:29→22:00)
[2018-02-04] MEDS: PREGABALIN 100 MG CAP PO SCH ×2 (16:44→20:33)
--- NOTE | 2018-02-04 17:28 | HOSPPROG ---
Hospitalist Progress Note Assessment/Plan: * Recurrent episodes of unresponsiveness followed by agitation -? 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83-1.16) H 02/04/18 11:45 Laboratory Tests 02/03/18 02/03/18 02/03/18 19:33 20:32 20:33 INR Calcium 9.2 Ammonia 18.0 Albumin 3.5 TSH Urine WBC 02/04/18 02/04/18 02/04/18 04:28 11:15 11:45 INR 2.86 H Calcium 8.7 Ammonia Albumin TSH 1.460 Urine WBC 25-50 H EKG viewed, my personal interpretation is - only mild increased QT Head CT - negative - Time Spent With Patient Time Spent with Patient: greater than 35 minutes Time Spent with Patient: Greater than 35 minutes spent on this patients care, greater than 50% of time spent counseling, educating, and coordinating care regarding the above mentioned plan. - Physical Exam Constitutional: no apparent distress, appears nourished, not in pain Cardiovascular: regular rate and rhythym, no murmur, rub, or gallop Respiratory: no respiratory distress, no rales or rhonchi, clear to auscultation Gastrointestinal: normoactive bowel sounds, soft, non-tender abdomen, no palpable masses Skin: no rashes or abrasions, no fluctuance, no induration Neurologic: No AAOx3 Psychiatric: encephalopathic, agitated, poor insight, poor judgement, poor memory, other (wide awake but confused, auditory hallucinations, angry), No interacting appropriately, No thought process linear ICD10 Worksheet Patient Problems: Problems Problem Status Onset Altered mental status Acute Confusion Acute Abdominal pain Acute Arrhythmia Acute Chest pain Acute Hypokalemia Acute Hypomagnesemia Acute Shortness of breath Acute TIA (transient ischemic attack) Acute UTI (urinary tract infection) Acute Vomiting Acute
[2018-02-04] MEDS ORDERED: LORazepam 2 MG/ML INJ IVP ONE (18:00)
--- NOTE | 2018-02-04 18:21 | PDMN ---
Medical Necessity Medical necessity: Change to IP, as of 02/04/18, per MD & MCG M-300; los >2 mn for ongoing management of UTI w/metabolic encephalopathy & recurrent episodes of unresponsiveness followed by agitation/combativeness & auditory hallucinations; requiring further workup, close monitoring, Neuro consult & IV abx; hx recent parathyroidectomy, factor V leiden, torsades
[2018-02-04] MEDS ORDERED: PRAVASTATIN SODIUM 40 MG TAB PO SCH (21:00)
[2018-02-04] MEDS: SUMAtriptan 25 MG TAB PO ONE ×2 (22:00→22:59)
[2018-02-05] MEDS: [UNRECOGNIZED DRUG - OTHER] PO PRN (02:55)
[2018-02-05] MEDS: LEVOTHYROXINE 50 MCG TAB PO SCH (05:33)
[2018-02-05] MEDS: METHOCARBAMOL 750 MG TAB PO SCH ×2 (05:33→12:28)
[2018-02-05 06:48] LABS: INR 3.27 (0.83-1.16); PROTIME(PATIENT) 33.1 SEC (12.0-15.0)
[2018-02-05] MEDS ORDERED: [UNRECOGNIZED DRUG - OTHER] PO SCH (08:00)
[2018-02-05] MEDS: PREGABALIN 100 MG CAP PO SCH (08:28)
[2018-02-05] MEDS: NABUMETONE 500 MG TAB PO SCH (08:28)
[2018-02-05] MEDS: GABAPENTIN 300 MG CAP PO SCH (08:29)
[2018-02-05] MEDS: ENOXAPARIN 40 MG/0.4 ML SYR SC SCH (08:30)
[2018-02-05] MEDS: METOPROLOL SUCCINATE XR 50 MG TAB PO SCH (08:30)
[2018-02-05] MEDS: Lifitegrast [Xiidra] EACHEYE SCH (08:34)
--- NOTE | 2018-02-05 11:32 | NEUROPROG ---
Assessment: BACKGROUND: 67 year old woman with a history of Factor V Leiden (on AC), chronic pain (on fentanyl patch, Lyrica, tramadol and Robaxin) who presented to the ED due to AMS. History is obtained from records review and the patient's . Patient was apparently normal yesterday morning around 9 or 10am. Patient took a nap. When she woke from the nap in the early afternoon she was acting out of sorts. Patient's , Adrianna, was also napping and the patient woke her by pulling on her legs. Patient would on say "no." Adrianna got the patient to sit on the bed and the patient was just looking around bewildered. Adrianna states the patient's right arm and both legs were trembling, "but not like a seizure, I know seizures cause I have a nephew with epilepsy." Patient didn't seem to produce any verbal output, so EMS was summoned. Patient became very agitated overnight and is now hallucinating that there is a man in the corner of her room. Patient this morning is very angry and yelling expletives. Patient's though processes are very disorganized. Adrianna notes that the patient has had spells like this in the past. They were in the ED on 01/09 for another episode of AMS. Patient was hospitalized 12/04 with a very similar episode, including agitation and hallucinations. Adrianna states these episodes are attributable to UTIs, however, on records review her UA was clean on 01/09 and her November hospitalization UCx on grew david. On November hospitalization she had an MRI brain brain wo showing nothing acute and just volume loss and chronic microvascular ischemic changes in the white matter. Patient has apparently returned to baseline each time within 2-3 days of getting antibiotics for reported UTIs. In between episodes the patient is apparently her normal, calm self without any behavioral disturbance or cognitive changes. Patient has not had fevers, chills, any other recent illness , neck stiffness, photophobia. No indication of true convulsive activity. INTERVAL HISTORY: Back to baseline today. Only interventions yesterday were initiation of ceftriaxone for abnormal UA and restarting her home pain meds including fentanyl patch. She states she recalls our visit yesterday and she is very apologetic about her behavior. She states she knew she was acting very inappropriately, but something in her head was making her act very angry. She states with prior episodes she is aware of what's happening but has little control to subdue the behavior. She was aware of what happened at home, as well. EXAM: NEURO: MS: awake, alert, oriented to all spheres. Speech nondysarthric. No language disturbance. Follows commands. Attends to both sides. recent/remote memory grossly intact. No hallucinations/delusions. Has insight into what happened and recall of all events. Mood euthymic. Good fund of knowledge. CN: pupils 3mm round and reactive. Unable to visualize fundi. VFF. Primary gaze centered. Restricted vertical gaze. Facial sensation preserved. Face symmetric. Hearing grossly intact to finger rub. Palatoglossal movements intact. Shoulder shrug and head turn strong. MOTOR: normal bulk/tone. No adventitial movements. Full power throughout. SENSORY: intact to LT/PP throughout the extremities and symmetric. No extinction. COORD: no ataxia FN/HS. Bette preserved. REFLEX: plantars down. No clonus. DTRS 07/15. GAIT: seen ambulating in room with normal gait DATA REVIEW: Labs reviewed in EMR PERSONALLY INTERPRETED RESULTS AND DATA: CT head wo - nothing acute IMPRESSION AND RECOMMENDATIONS: // ACUTE ENCEPHALOPATHY - RECURRENT - RESOLVED // HX CHRONIC PAIN // HX POLYPHARMACY Patient with paroxysms of abnormal behaviors and dramatic departure from her baseline norm, which is usually calm and without any cognitive impairment. This may be a primary psych issue, neurodegenerative disease (behavioral FTD), toxic/metabolic state. Less likely seizure, given she is aware during the episodes and can recall, but cannot fully rule out atypical post-ictal state or atypical focal frontal lobe seizure. UA is abnormal, but CX seems to be growing david, but she is also better with initiation of ceftriaxone. She is better with reinstituting her pain medication regimen, so withdrawal state should be considered. She is now back to baseline. She would like to leave and does not want to stay for further testing. I recommend she follow up in our office in 1-2 weeks, and we will get MRI brain wow, 4 hour vEEG - depending on those results may need to pursue LP to check for PNP/autoimmune encephalitis. Will sign off. Visit reviewed with Dr. Barragan of hospitalist service service. Objective: Vital Signs Temp Pulse Resp BP Pulse Ox 36.5 C 88 16 147/83 H 98 07/27/18 22:48 02/04/18 22:48 02/04/18 22:48 02/04/18 22:48 02/04/18 22:48 02/04/18 02/05/18 02/06/18 05:59 05:59 05:59 Intake Total 1150 Output Total 200 Balance 950 PT 33.1 SEC (12.0-15.0) H 02/05/18 06:30 INR 3.27 (0.83-1.16) H 02/05/18 06:30 Allergies/Adverse Reactions: fluoxetine [From Prozac] Allergy (Mild, Verified 01/09/18 14:34) Other-Enter Comments adhesive tape Allergy (Verified 01/09/18 14:34) sumatriptan Allergy (Verified 02/04/18 15:12)
[2018-02-05] MEDS: [UNRECOGNIZED DRUG - OTHER] PO SCH (12:14)
[2018-02-05 13:49] VITALS: BP 129/72
--- NOTE | 2018-02-05 14:30 | GDS ---
[f rep st] DISCHARGE SUMMARY DISCHARGE DIAGNOSES: 1. Encephalopathy due to urinary tract infection. 2. History of factor V Leiden. 3. History of recent parathyroidectomy. 4. History of frequent urinary tract infections. 5. Chronic pain. 6. Neuropathy. 7. History of torsades. 8. Obstructive sleep apnea. 9. Depression. 10. Fibromyalgia. HISTORY: This is a 67-year-old female presenting with altered mental status and twisting motion in t he right arm. . HOSPITAL COURSE: The patient was admitted. Initial blood work and CAT scanning were negative. She did have a UA done, which showed significant pyuria. She was treated with antibiotics and improved f airly quickly. She is requesting to go home. DISPOSITION: Home. DISCHARGE MEDICATIONS: She is to continue all of her home medicines. In addition, she will be given Ceftin 250 mg twice daily for 10 more days. FOLLOWUP INSTRUCTIONS: She is instructed follow up with the Coumadin clinic after tomorrow since her INR is a little bit on the high side. She is also instructed to follow up with her primary care doc robert. /[id number]/MODL
[2018-02-05] MEDS ORDERED: WARFARIN SODIUM 5 MG TAB PO SCH (16:00)
[2018-02-06] MEDS ORDERED: fentaNYL 75 MCG PATCH TD SCH (11:00)
[2018-02-07] MEDS ORDERED: WARFARIN SODIUM 5 MG TAB PO SCH (16:00)
== END 2018-02-05 12:38 | disposition home or self-care (01) | DRG 689 ==
LOC: EDUNIT# → F3N 22:47 → OBSVTOIN 02-04 10:22
PROVIDERS: ADMIT Student in an Organized Health Care Education/Training Program; ATTEND Student in an Organized Health Care Education/Training Program
DX: N39.0 Urinary tract infection, site not specified (principal); G93.49 Other encephalopathy; D68.2 Hereditary deficiency of other clotting factors; G89.29 Other chronic pain; G47.33 Obstructive sleep apnea (adult) (pediatric); M79.7 Fibromyalgia; G62.9 Polyneuropathy, unspecified; F32.9 Major depressive disorder, single episode, unspecified; Z79.01 Long term (current) use of anticoagulants; Z87.440 Personal history of urinary (tract) infections; E03.9 Hypothyroidism, unspecified; E66.9 Obesity, unspecified; Z68.37 Body mass index [BMI] 37.0-37.9, adult
CPT/HCPCS: 80305; 82435-PO; 82565-PO; 82947-PO; 84132-PO; 84295-PO; 84520-PO; 85014-PO; 97161-GP; 97165-GO; G0378; G8978-GP-CH; G8979-GP-CH; G8980-GP-CH; G8987-GO-CI; G8988-GO-CI; G8989-GO-CI; J0696; J1650; J2060

== ENCOUNTER → 2018-02-24 | Outpatient (CLI) | payer OTHER ==
--- NOTE | 2018-02-28 10:57 | CPEEG ---
[f rep st] ELECTROENCEPHALOGRAM 4-HOUR VIDEO EEG. DATE OF STUDY: 02/24/2018 INTERPRETATION: This 4-hour video EEG recording is essentially normal. There were no potentially epileptogenic abnormalities present during the awake or sleep recordings. During the EEG monitoring session, the patient did not have any clinical events. REPORT: This 4-hour video EEG contains 9 Hz alpha activity to the posterior head regions. There was no abnormal activation at rest, during photic stimulation or hyperventilation. The patient intermittently became drowsy and fell asleep throughout the recording. There was consistent background slowing with drowsiness without any other abnormalities. There was no abnormal epileptiform activation during drowsiness, sleep, or during times of arousal. The patient did not have any clinical events during the video EEG monitoring session. /[id number]/MODL MTDD
== END ==
LOC: FCPNEURO 07:50
PROVIDERS: ATTEND Psychiatry & Neurology Neurology
DX: R46.89 Other symptoms and signs involving appearance and behavior (principal)

== ENCOUNTER 2018-03-05 18:21 | Inpatient (IN) | payer OTHER ==
[2018-03-05 18:51] LABS: PLATELET COUNT 188 10^3/uL (150-400)
--- NOTE | 2018-03-05 18:51 | EDPHY ---
H & P Stated Complaint: ams, possible UTI Time Seen by Provider: 03/05/18 18:24 HPI/ROS: CHIEF COMPLAINT: Altered mental status, possible UTI HISTORY OF PRESENT ILLNESS: 67-year-old female history of recurrent UTI with encephalopathy commonly accompanying her urinary tract infections the. The patient arrives via ambulance after her partner called 911 due to altered mental status with no focal neurologic deficits. She has previously been admitted the hospital for similar, has had prior stroke alerts. No focal neurologic deficits today. History is limited secondary to the patient being altered, she is unable to tell me who she is or what year it is. She does follow commands however. Patient was discharged from [facility] 02/10/2018 with 10 days of Ceftin therapy. PRIMARY CARE PROVIDER: REVIEW OF SYSTEMS: A ten point review of systems was performed and is negative with the exception of the items mentioned in the HPI PAST MEDICAL & SURGICAL HISTORY: History of frequent, recurrent UTI typical company with acute encephalopathy which resolves with antibiotic use. 5 5 Leiden history. Obstructive sleep apnea SOCIAL HISTORY: . Depression. Fibromyalgia. Nonsmoker. PHYSICAL EXAM (Prior to examination, patient consented to physical exam, hands were washed and my usual and customary physical exam procedures followed) 1) GENERAL: Well-developed, well-nourished, follows commands. Appears to be in no acute distress. 2) HEAD: Normocephalic, atraumatic 3) HEENT: Pupils equal, round, reactive to light bilaterally. Sclera anicteric. Nasopharynx, oropharynx, clear, no lesions. Moist mucous membranes. 4) NECK: Full range of motion, no meningeal signs. 5) LUNGS: Clear auscultation bilaterally, no wheezes, no rhonchi, no retractions. 6) HEART: Regular rate and rhythm, no murmur, no heave, no gallop. 7) ABDOMEN: No guarding, no rebound, no focal tenderness, negative McBurney's, negative Cleaning's, negative Rovsing's, negative peritoneal sign, 8) MUSCULOSKELETAL: Moving all extremities, no focal areas of tenderness, no obvious trauma. No peripheral edema or discoloration. 9) BACK: No CVA tenderness, no midline vertebral tenderness, no fluctuance, no step-off, no obvious trauma, no visual or palpable abnormality. 10) SKIN: No rash, no petechiae. 11) Psychiatric: Patient is oriented X 3, there is no agitation. 12) NEURO: Awake, alert. Follows commands. There were no obvious focal neurologic abnormalities. No cerebellar dysfunction. Cranial nerves 2 through to 12 intact. Normal steady gait. Upper and lower extremities bilaterally with strength 5 / 5, reflexes 2+. 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 Chronic UTI's. - Social History Smoking Status: Former smoker Constitutional: Initial Vital Signs Heart Rate 72 03/05/18 18:29 Respiratory Rate 16 03/05/18 18:29 Blood Pressure 139/94 H 03/05/18 18:29 O2 Sat (%) 95 03/05/18 18:29 O2 Delivery Mode Nasal Cannula O2 (L/minute) 1 Allergies/Adverse Reactions: fluoxetine [From Prozac] Allergy (Mild, Verified 01/09/18 14:34) Other-Enter Comments adhesive tape Allergy (Verified 01/09/18 14:34) sumatriptan Allergy (Verified 02/04/18 15:12) Home Medications: Medication Instructions Recorded Herbals/Supplements -Info Only 1 ea PO DAILY 02/03/18 Lidocaine 5% [Lidocaine 5% Oint] 1 janki TP TID PRN 02/03/18 Lifitegrast [Xiidra] 1 each OP BID 02/03/18 Methocarbamol [Robaxin 750 mg (*)] 750 mg PO QID 02/03/18 Metoprolol Succinate Xr [Toprol Xl 25 mg PO DAILY 02/03/18 50 mg (*)] Nabumetone [Relafen 500 mg (*)] 500 mg PO BIDMEAL 02/03/18 Polyethylene Glycol 3350 [Miralax 17 gm PO Q2D PRN 02/03/18 17 gm (*)] Pravastatin Sodium 40 mg PO HS 02/03/18 Warfarin Sodium [Coumadin 5MG (*)] 5 mg PO SUTUTHSA 02/03/18 Warfarin Sodium [Coumadin 5MG (*)] 7.5 mg PO MWF@16 02/03/18 fentaNYL [Duragesic 75 MCG Patch 75 mcg TD Q72H 02/03/18 (*)] traMADol [Ultram 50 mg (*)] 50 mg PO TID 02/03/18 Citracal Maximum 2 tab PO DAILY@08 02/04/18 Gabapentin [Neurontin 400 MG (*)] 400 mg PO TID 03/05/18 Medical Decision Making - Diagnostics Imaging Results: Imaging Impressions Chest X-Ray 03/05/18 18:42 Impression: 1. No definite pneumonia. 2. Consider chest, two views, when the patient's medical condition permits. Head CT 03/05/18 18:44 Impression: 1. Normal CT brain, without contrast. 2. Consider additional imaging with MRI of the brain, if clinically indicated. Findings and recommendations discussed with Emergency Department Physician Box Stamper, Rei Ovalles PA-C, at 1915 hours, on March 05, 2018. Final report concurs with initial preliminary interpretation. ED Course/Re-evaluation: 6:47 p.m.: Patient is encephalopathic. Reviewed her medical records. She has prior history of similar typically with development of urinary tract infection. Interviewing the patient's medical records, 02/26/2018 positive MRSA nasal swab , urinalysis of 02/26/2018 negative for growth, for colony types growth 2017 from her urine. It today she is altered, is unable to tell me what year it is or who she is. Discussed case with Dr. Laith Blanco in the ER who also evaluated the patient. Will obtain imaging, urinalysis, the laboratory studies plan on admission. Given patient's history suspect more than likely urinary tract infection 7:17 p.m.: Noncontrast CT negative per Radiology interpretation 7:24 p.m.: Re-evaluation. Patient's is at bedside. She provides further information at the patient typically will clear with antibiotics even the presence of initially clear urine and insistent that the patient receive IV antibiotics. Consultation with hospitalist, plan willl be admission Dr. Chun Johnson. - Data Points Laboratory Results: Laboratory Results 03/05/18 18:35 03/05/18 18:35 03/05/18 03/05/18 03/05/18 18:51 18:48 18:35 WBC RBC Hgb Hct MCV MCH MCHC RDW Plt Count MPV Neut % (Auto) Lymph % (Auto) Anderson % (Auto) Eos % (Auto) Baso % (Auto) Nucleat RBC Rel Count Absolute Neuts (auto) Absolute Lymphs (auto) Absolute Monos (auto) Absolute Eos (auto) Absolute Basos (auto) Absolute Nucleated RBC Immature Gran % Immature Gran # PT 32.5 SEC H SEC (12.0-15.0) INR 3.19 H (0.83-1.16) APTT 35.5 SEC SEC (23.0-38.0) VBG Lactic Acid Sodium Potassium Chloride Carbon Dioxide Anion Gap BUN Creatinine Estimated GFR Glucose Calcium Total Bilirubin POC Troponin I 0.01 ng/mL ng/mL (0.00-0.08) Urine Color YELLOW Urine Appearance CLEAR Urine pH 6.0 (5.0-7.5) Ur Specific Jackson 1.021 (1.002-1.030) Urine Protein NEGATIVE (NEGATIVE) Urine Ketones NEGATIVE (NEGATIVE) Urine Blood NEGATIVE (NEGATIVE) Urine Nitrate NEGATIVE (NEGATIVE) Urine Bilirubin NEGATIVE (NEGATIVE) Urine Urobilinogen NEGATIVE EU EU (0.2-1.0) Ur Leukocyte Esterase NEGATIVE (NEGATIVE) Urine RBC NONE SEEN /hpf /hpf (0-3) Urine WBC 1-3 /hpf /hpf (0-3) Ur Epithelial Cells TRACE /lpf /lpf (NONE-1+) Urine Mucus TRACE /lpf /lpf (NONE-1+) Urine Glucose NEGATIVE (NEGATIVE) 03/05/18 03/05/18 03/05/18 18:35 18:35 18:35 WBC 6.74 10^3/uL 10^3/uL (3.80-9.50) RBC 3.94 10^6/uL L 10^6/uL (4.18-5.33) Hgb 12.2 g/dL L g/dL (12.6-16.3) Hct 36.6 % L % (38.0-47.0) MCV 92.9 fL fL (81.5-99.8) MCH 31.0 pg pg (27.9-34.1) MCHC 33.3 g/dL g/dL (32.4-36.7) RDW 12.3 % % (11.5-15.2) Plt Count 188 10^3/uL 10^3/uL (150-400) MPV 9.9 fL fL (8.7-11.7) Neut % (Auto) 68.1 % % (39.3-74.2) Lymph % (Auto) 24.3 % % (15.0-45.0) Anderson % (Auto) 6.2 % % (4.5-13.0) Eos % (Auto) 0.3 % L % (0.6-7.6) Baso % (Auto) 0.7 % % (0.3-1.7) Nucleat RBC Rel Count 0.0 % % (0.0-0.2) Absolute Neuts (auto) 4.58 10^3/uL 10^3/uL (1.70-6.50) Absolute Lymphs (auto) 1.64 10^3/uL 10^3/uL (1.00-3.00) Absolute Monos (auto) 0.42 10^3/uL 10^3/uL (0.30-0.80) Absolute Eos (auto) 0.02 10^3/uL L 10^3/uL (0.03-0.40) Absolute Basos (auto) 0.05 10^3/uL 10^3/uL (0.02-0.10) Absolute Nucleated RBC 0.00 10^3/uL 10^3/uL (0-0.01) Immature Gran % 0.4 % % (0.0-1.1) Immature Gran # 0.03 10^3/uL 10^3/uL (0.00-0.10) PT INR APTT VBG Lactic Acid 1.9 mmol/L mmol/L (0.7-2.1) Sodium 143 mEq/L mEq/L (135-145) Potassium 4.6 mEq/L mEq/L (3.3-5.0) Chloride 106 mEq/L mEq/L (97-110) Carbon Dioxide 29 mEq/l mEq/l (22-31) Anion Gap 8 mEq/L mEq/L (8-16) BUN 26 mg/dL H mg/dL (7-23) Creatinine 0.7 mg/dL mg/dL (0.6-1.0) Estimated GFR > 60 Glucose 108 mg/dL H mg/dL (70-100) Calcium 9.1 mg/dL mg/dL (8.5-10.4) Total Bilirubin 0.6 mg/dL mg/dL (0.1-1.4) POC Troponin I Urine Color Urine Appearance Urine pH Ur Specific Jackson Urine Protein Urine Ketones Urine Blood Urine Nitrate Urine Bilirubin Urine Urobilinogen Ur Leukocyte Esterase Urine RBC Urine WBC Ur Epithelial Cells Urine Mucus Urine Glucose Medications Given: Gabapentin (Neurontin) 400 mg PO TID [facility] Stop: 09/01/18 21:59 Last Admin: 03/05/18 22:15 Dose: 400 mg Hydromorphone HCl (Dilaudid) 0.4 mg IVP Q2HRS PRN PRN Reason: Pain, Severe Unable to Take PO Stop: 03/15/18 21:46 Last Admin: 03/05/18 22:16 Dose: 0.4 mg Tramadol HCl (Ultram) 50 mg PO TID [facility] Stop: 09/01/18 21:59 Last Admin: 03/05/18 22:15 Dose: 50 mg Warfarin Sodium (Coumadin) 5 mg PO SUTUTHSA [facility] Stop: 09/01/18 21:44 Last Admin: 03/05/18 22:20 Dose: 5 mg Discontinued Medications Ceftriaxone Sodium/Dextrose (Rocephin 1 Gm (Premix)) 50 mls @ 100 mls/hr IV EDNOW ONE PRN Reason: Protocol Stop: 03/05/18 19:21 Last Admin: 03/05/18 19:26 Dose: 50 mls Sodium Chloride (Ns) 1,000 mls @ 0 mls/hr IV ONCE ONE PRN Reason: Wide Open Stop: 03/05/18 18:54 Last Admin: 03/05/18 19:25 Dose: 1,000 mls Point of Care Test Results: Chemistry 03/05/18 18:51 POC Troponin I 0.01 ng/mL ng/mL (0.00-0.08) Departure - Departure Disposition: [facility] Acute Clinical Impression: Volume depletion, Elevated BUN creatinine ratio Altered mental status Qualifiers: Altered mental status type: unspecified Qualified Code(s): R41.82 - Altered mental status, unspecified Condition: Fair
[2018-03-05] MEDS ORDERED: NS 1,000 ML IV ONE (18:53)
[2018-03-05 18:58] LABS: INR 3.19 (0.83-1.16); PROTIME(PATIENT) 32.5 SEC (12.0-15.0)
[2018-03-05] MEDS ORDERED: ONDANSETRON 4 MG/2 ML VIAL IVP PRN (21:39)
[2018-03-05] MEDS ORDERED: ONDANSETRON DISINTEGRATING 4 MG TAB PO PRN (21:39)
[2018-03-05] MEDS ORDERED: ACETAMINOPHEN 325 MG TAB PO PRN (21:39)
[2018-03-05] MEDS ORDERED: WARFARIN SODIUM 5 MG TAB PO SCH (21:45)
[2018-03-05] MEDS ORDERED: DIAZEPAM 5 MG/ML 1 ML SYR IVP ONE (21:52)
[2018-03-05] MEDS: traMADol 50 MG TAB PO SCH (22:15)
[2018-03-05] MEDS: GABAPENTIN 400 MG CAP PO SCH (22:15)
[2018-03-05] MEDS: HYDROmorphONE/DILAUDID 1 MG/ML INJ IVP PRN ×2 (22:16→23:55)
--- NOTE | 2018-03-05 23:39 | GHP ---
[f rep st] HISTORY AND PHYSICAL DATE OF ADMISSION: 03/05/2018 The patient is a 67-year-old female with history of factor 5 Leiden, recurrent UTI, and episodes of encephalopathy, who presents to the hospital today with her partner. Her partner called 911 because she had altered mental status. She had a fall. She was apparently able to stand afterwards. There were no focal neurologic deficits on initial evaluation. History is limited. I spoke with the patient. She is concerned that she has urinary tract infection, is essentially demanding antibiotics. I explained her normal urinalysis and the importance of not over treating UA's. She became very agitated, screaming, yelling, getting up. I excused myself from the room and returned about an hour later. We discussed it. At this point in time, it became clear the patient was in a fair amount of pain. She had fallen and on further evaluation, her left hip was externally rotated and foreshortened. We were able to avoid the issue of revisiting antibiotics. Her partner, who I know well from previous hospitalizations, stated that every time she comes to the hospital and get antibiotics she gets better. She was recently admitted to this hospital where she had a mild amount of pyuria with 25-50 white cells in urine. At that time, urine culture grew out 100,000 colonies of 4 colony types consistent with normal urogenital david. It is worth noting the patient never had urinary symptoms. REVIEW OF SYSTEMS: Complete 10-point review of systems conducted, negative except as noted in the HPI. PAST MEDICAL HISTORY: Recurrent episodes of encephalopathy, factor 5 Leiden, history parathyroidectomy, urinary tract infection, migraines, chronic pain on continuous narcotics, neuropathy, hypothyroidism, history of torsades, obstructive sleep apnea, osteoarthritis, depression, obesity, fibromyalgia. ALLERGIES: Prozac, adhesive tape, and Imitrex. MEDICATIONS: MiraLAX, Citracal, fentanyl patch 75 q.72, gabapentin, lidocaine patch, eye drops, methocarbamol 750 four times daily. Metoprolol, nabumetone, pravastatin, tramadol, warfarin. SOCIAL HISTORY: No tobacco, no alcohol. Lives in an apartment. FAMILY HISTORY: Parents . PHYSICAL EXAMINATION: VITAL SIGNS: Blood pressure 150/81, pulse 70, breathing 18 times a minute, 94% on 2 L. Temp 37.1. GENERAL: No acute distress. Tearful, a bit confused, but conversant, volatile. Sclerae anicteric. Oropharynx clear. Mucous membranes moist. NECK: Supple. No lymphadenopathy or JVD. LUNGS: Clear to auscultation bilaterally. HEART: S1, S2. Not tachycardic. ABDOMEN: Soft, nontender, nondistended. LOWER EXTREMITIES: Her right lower extremity is externally rotated and shortened. It is not particularly tender over the hip. She will not fully straighten it. Her left lower extremity is normal. She has trace edema bilaterally, which is common for her. LABS: UA is completely normal. Sodium 143, potassium 4.6, chloride 106, bicarb 29, BUN 26, creatinine 0.7, glucose Troponin 0.01. Venous lactate is 1.9. INR is 3.2. White count 6, hematocrit 36, platelets are 188,000. IMAGING: Normal CT brain without contrast. Chest x-ray interpreted by me shows no acute cardiopulmonary disease. EKG interpreted by me, sinus at 69 with normal axis and intervals and no ST or T-wave changes. ASSESSMENT AND PLAN: A 67-year-old female with transient encephalopathy as well as fall. 1. Fall. I have ordered films of her right hip. Her posturing in bed is concerning for possible fracture, although she is not particularly tender, films pending. 2. Episodes of encephalopathy. They attribute these universally to urinary tract infections. I do not believe this is the cause in this instance, and I question that it is the cause continually. Differential includes conversion disorder, seizures. She had a 4 hour EEG as an outpatient this week. Dr. Ivory should be paged for the results tomorrow. I have ordered an MRI with and without contrast of her brain as this has been recommended by Dr. Ivory during previous admissions. I believe that the most likely etiology of this is either conversion disorder or toxic encephalopathy from her cocktail of medicines that she is on. For the time being, I have discussed it with the partner that it could perhaps be conversion disorder and/or medications, but did not push it particular far given the difficulty of the interaction in the emergency department. If her EEG is negative and MRI is negative, I think that a adelfo discussion should be held with the patient and the partner that it could be either conversion disorder versus medications. 3. Factor 5 Leiden. Continue her current Coumadin. Her dose is where she wants it. 4. Chronic pain. We will continue her home pain medicines. I have written for a little bit of IV pain medicine given her hip pain. 5. Prophylaxis. Therapeutically anticoagulated. DISPOSITION: Inpatient status. /[id number]/MODL MTDD
[2018-03-06] MEDS: METHOCARBAMOL 750 MG TAB PO SCH ×2 (04:57→11:00)
--- NOTE | 2018-03-06 07:09 | CPEKG ---
Test Reason : OPEN Blood Pressure : / mmHG Vent. Rate : 069 BPM Atrial Rate : 068 BPM P-R Int : 168 ms QRS Dur : 081 ms QT Int : 424 ms P-R-T Axes : 060 059 079 degrees QTc Int : 455 ms Sinus rhythm Confirmed by Bj Yadav ([id number]) on 03/06/2018 7:09:04 AM Referred By: Confirmed By:Bj Yadav
[2018-03-06] MEDS ORDERED: [UNRECOGNIZED DRUG - OTHER] PO SCH (08:00)
[2018-03-06] MEDS ORDERED: NABUMETONE 500 MG TAB PO SCH (08:00)
[2018-03-06] MEDS ORDERED: DIAZEPAM 5 MG/ML 1 ML SYR IVP ONE (08:00)
[2018-03-06] MEDS ORDERED: Herbals/Supplements -Info Only PO SCH (09:00)
--- NOTE | 2018-03-06 10:20 | HOSPPROG ---
Hospitalist Progress Note Assessment/Plan: * Recurrent episodes of agitation, hallucinations, metabolic encephalopathy -suspect seizure disorder with post-ictal state vs. conversion disorder vs. med effect -MRI brain pending -had outpatient EEG last week with Dr. Ivory - d/w Dr. Ivory - he will consult * Factor V Leiden with hypercoagulable state -therapeutic on warfarin * h/o recurrent UTI -UA completely clear this admission - no indication for antibiotics -very emotionally dependent on antibiotics, thinking they are simple answer to her problem * Congenital hip deformity with chronic pain - continuous narcotic dependency -has been on stable regimen for years -this may need to be re-evaluated if these spells continue * Possible dementia -per partner - short term memory loss noted even when she is doing well * ALEJANDRA - CPAP, obesity BMI 33 * Recent parathyroidectomy -Ca++ okay * h/o Torsades -avoid QT prolonging agents Subjective: Agitated, demanding antibiotics, refusing everything, screaming for Adrianna Objective: Vital Signs Temp Pulse Resp BP Pulse Ox 36.8 C 98 17 142/62 H 90 L 03/06/18 08:00 03/06/18 08:00 03/06/18 08:00 03/06/18 08:00 03/06/18 08:00 Laboratory Results 03/06/18 05:10 03/05/18 03/06/18 03/07/18 05:59 05:59 05:59 Intake Total 300 Output Total 500 Balance 300 -500 PT 32.5 SEC (12.0-15.0) H 03/05/18 18:35 INR 3.19 (0.83-1.16) H 03/05/18 18:35 femur xray - no fracture - Physical Exam Constitutional: no apparent distress, appears nourished, not in pain Cardiovascular: regular rate and rhythym, no murmur, rub, or gallop Respiratory: no respiratory distress, no rales or rhonchi, clear to auscultation Gastrointestinal: normoactive bowel sounds, soft, non-tender abdomen, no palpable masses Skin: no rashes or abrasions, no fluctuance, no induration Neurologic: AAOx3, sensation intact bilaterally, No weakness, No numbness, No facial droop Psychiatric: encephalopathic, anxious, agitated, poor insight, poor judgement, poor memory, No interacting appropriately, No thought process linear ICD10 Worksheet Patient Problems: Problems Problem Status Onset Altered mental status Acute Volume depletion Acute Abdominal pain Acute Arrhythmia Acute Chest pain Acute Confusion Acute Hypokalemia Acute Hypomagnesemia Acute Shortness of breath Acute TIA (transient ischemic attack) Acute UTI (urinary tract infection) Acute Vomiting Acute
[2018-03-06] MEDS: GABAPENTIN 400 MG CAP PO SCH ×3 (10:56→22:37)
[2018-03-06] MEDS: traMADol 50 MG TAB PO SCH ×3 (10:56→22:37)
[2018-03-06] MEDS: METOPROLOL SUCCINATE XR 50 MG TAB PO SCH (11:00)
[2018-03-06] MEDS: LIFITEGRAST OP SCH ×2 (11:09→20:09)
--- NOTE | 2018-03-06 12:07 | NEUROPROG ---
Assessment: HOSPITAL NEUROLOGY CONSULT REQUESTING: Nadira Rosales MD REASON: spells HPI: 67 year old woman with a history of chronic pain, fibromyalgia, narcotic dependence, polypharmacy, depression who presented to the ED yesterday with another spell of abnormal behavior. Patient well known to me from admission last month for a similar event. To sumamrize our last visit last month, she had an episode of being nonverbal, then agitation/shouting profanity and was hallucinating there was a man in her room, which she was seen conversing/ interacting with during that admission from 02/04. Patient has been having recurrent spells of abnormal behavior. This time around , symptoms started on 03/04. Patient had just stopped antibiotics for another reported UTI. Her partner, Adrianna, and the patient are convinced her episodes of abnormal behavior are related to recurrent UTIs, however, repeated urine cultures with her repeated hospital visits have only grown urogenital david. Adrianna states that the patient "went down hill" on Wednesday. Was not herself and acting odd and confused. Was getting agitated and angry again. Wednesday, 03/05, patient awoke and was still "out of it." Was seemingly jerking independently in the extremities, but had preserved awareness. Went to bed and on waking in the afternoon had a fall, which Adrianna witnessed. Patient's right leg buckled and she went down to the floor face down. Patient had her arms under her "like a push-up" and was trying to push up to rise, but her legs were twitching. She again, had awareness. At that point, Adrianna called EMS and the patient was brought to the ED. They demanded antibiotics in the ED, though her UA was completely normal. When I entered the room the patient was able to recognize me from last visit and actually stated with great specificity our first encounter when she was agitated and shouting profanities. After that, she was less responsive. At the end of our visit, she became agitated and started shouting profanities again. She is yelling she has pain all over her body. Nursing has noted the patient is ambulatory without problem. Patient reports she cannot move the LLE at all, though, again, nursing notes it has been moving without difficulty. Patient has a 4 hour vEEG on 02/24 which was normal. She had a MRI brain wo in November during an admission for spells which was unremarkable. ROS: As per the HPI, otherwise a complete 12 point ROS was performed and is negative ALLERGIES AND MEDS: As recorded in the EMR - reviewed and reconciled PFSH: As per the intake H&P by Dr. Johnson from yesterday EXAM: VS reviewed in EMR GEN: WDWN laying in NAD HEENT: NCAT, sclera anicteric, conjunctiva not injected, MMM, oropharynx clear, no scalp tenderness NECK: supple, nontender, no meningismus CV: RRR s1 s2 wo m/r/c/g. Carotid pulses 2+ wo bruit NEURO: MS: awake, alert, oriented to all spheres. Speech nondysarthric. No language disturbance. Follows commands. Attends to both sides. Recent/remote memory grossly intact. She ranges from psychomotor slowing to agitation. Good fund of knowledge. CN: pupils 3mm round and reactive. Unable to visualize fundi. VFF. Primary gaze centered. Full ocular motility. Facial sensation preserved. She has poor effort with smiling, at first volitionally not elevating the left side of the face - then has symmetric cheek puffing - then symmetric smile. Hearing grossly intact to finger rub. Palatoglossal movements intact. Shoulder shrug and head turn strong. MOTOR: normal bulk. Low tone LLE. Poor effort and giveway weakness in LUE. Will not move the LLE at all (states because of her prior hip surgery, though has been walking with nursing and seen moving the leg frequently by nursing). SENSORY: intact/symmetric LT/PP in the extremities. No extinction. COORD: very slow/odd/robotic movements on FN, won't do HS. Bette odd/slow. REFLEX: plantars down. No clonus. Absent DTRs. GAIT: deferred DATA REVIEW: Labs reviewed in EMR PERSONALLY INTERPRETED RESULTS AND DATA: Nil IMPRESSION AND RECOMMENDATIONS: // CONVERSION DISORDER Patient with repeated episodes of varying semiology ranging from agitation, hallucinations, not moving, twitching. She has preserved awareness and can readily recall details during these events. Her exam today is overly nonorganic and effort dependent. She has multiple risk factors for conversion, including chronic pain, depression, polypharmacy, narcotic dependence. She has had investigations during prior events including MRI brain wo and EEG which were unremarkable. I did relay to the patient and her partner that I did not see anything organic on my evaluation. The patient became overly agitated and started shouting profanities - she was well animated and moving her extremities well with this agitation. She is repeatedly shouting "I have pain everywhere!" They are not willing to consider there is a functional/behavioral/psychiatric issue at play. They are still convinced she has a UTI and needs antibiotics. They are stating they are just going to go to another hospital after discharge here. I recommend outpatient psychiatry and psychology evaluations, as well as further medication streamlining for her polypharmacy. Will sign off. Objective: Vital Signs Temp Pulse Resp BP Pulse Ox 36.8 C 82 17 173/89 H 90 L 03/06/18 08:00 03/06/18 11:00 03/06/18 08:00 03/06/18 11:00 03/06/18 08:00 Laboratory Results 03/06/18 05:10 03/05/18 03/06/18 03/07/18 05:59 05:59 05:59 Intake Total 300 Output Total 500 Balance 300 -500 PT 32.5 SEC (12.0-15.0) H 03/05/18 18:35 INR 3.19 (0.83-1.16) H 03/05/18 18:35 Allergies/Adverse Reactions: fluoxetine [From Prozac] Allergy (Mild, Verified 01/09/18 14:34) Other-Enter Comments adhesive tape Allergy (Verified 01/09/18 14:34) sumatriptan Allergy (Verified 02/04/18 15:12)
[2018-03-06 12:34] LABS: INR 2.53 (0.83-1.16); PROTIME(PATIENT) 27.2 SEC (12.0-15.0)
[2018-03-06] MEDS ORDERED: BACLOFEN 10 MG TAB PO PRN (14:58)
--- NOTE | 2018-03-06 16:44 | ASMTLACE ---
REY Acuity / Level of Answers: Yes Care: Did the patient have an inpatient admission? Comorbidities - select Answers: Opioid dependence all that apply / Chronic pain Other Notes: Factor 5, recurrent UTI, encephalopathy, to rsa lidai # of Emergency department Answers: 5-8 visits in the last 6 months Social determinants Answers: Mental health diagnosis (anxiety, depression, pers onality disorders, etc.) Score: 15 Date Signed: 03/06/2018 04:44 PM Electronically Signed By:Alycia Ahn RN
--- NOTE | 2018-03-06 16:49 | ASMTCMCOM ---
CM Note CM Note Notes: Reviewed chart, spoke with DIEGO Price regarding discharge plan of care, pt's progress. Pt admitted for altered mental status. History includes Factor 5, recurrent UTI's, encephalopathy, parathyroid, migraines, chronic pain with narcotic use, torsades, ALEJANDRA, depression and fibromyalgia. Pt lives in an apartment with her partner. PT is recommending SNF, OT/NATIONAL BUSINESS DIRECTOR cleared. Discharge needs remain unclear at this time. CM will continue to follow. Discharge Plan: To be determined Date Signed: 03/06/2018 04:48 PM Electronically Signed By:Alycia Ahn RN
[2018-03-06] MEDS: fentaNYL 75 MCG PATCH TD SCH (17:11)
[2018-03-06] MEDS: WARFARIN SODIUM 5 MG TAB PO SCH (17:13)
--- NOTE | 2018-03-06 18:46 | PDMN ---
Medical Necessity Medical necessity: Pt meets IP criteria per MD; est los >2 mn for eval/tx of recurrent episodes of encephalopathy w/agitation s/p fall; concern for possible fx, r/o conversion disorder vs seizures vs toxic encephalopathy r/t meds; requiring further workup/monitoring, Neuro consult; hx recurrent UTIs, factor 5 leiden on AC, chronic pain on continuous narcotics, torsades; per H&P & order
[2018-03-06] MEDS: PRAVASTATIN SODIUM 40 MG TAB PO SCH (20:05)
[2018-03-06] MEDS: LORazepam 2 MG/ML INJ IVP PRN (20:05)
[2018-03-07] MEDS: LORazepam 2 MG/ML INJ IVP PRN ×5 (02:51→22:30)
[2018-03-07 05:02] LABS: INR 2.69 (0.83-1.16); PROTIME(PATIENT) 28.5 SEC (12.0-15.0)
[2018-03-07] MEDS: GABAPENTIN 400 MG CAP PO SCH ×3 (08:23→20:38)
[2018-03-07] MEDS: traMADol 50 MG TAB PO SCH ×3 (08:24→20:38)
[2018-03-07] MEDS: CALCIUM CARBONATE 500 MG TAB PO SCH (08:24)
[2018-03-07] MEDS: DULoxetine 60 MG CAP PO SCH (08:24)
[2018-03-07] MEDS: METOPROLOL SUCCINATE XR 50 MG TAB PO SCH (08:25)
[2018-03-07] MEDS: LIFITEGRAST OP SCH ×2 (08:26→20:41)
[2018-03-07] MEDS ORDERED: buPROPion XL 150 MG TAB PO SCH (09:00)
[2018-03-07] MEDS ORDERED: LACTULOSE 20 GM/30 ML UDCUP PO PRN (11:26)
[2018-03-07] MEDS ORDERED: POLYETHYLENE GLYCOL 3350 17 GM PKT PO PRN (11:26)
[2018-03-07] MEDS ORDERED: MAGNESIUM HYDROXIDE 30 ML UDCUP PO PRN (11:26)
[2018-03-07] MEDS ORDERED: BISACODYL 10 MG SUPP PR PRN (11:26)
--- NOTE | 2018-03-07 13:20 | HOSPPROG ---
Hospitalist Progress Note Assessment/Plan: * Effexor withdrawal - cold turkey off Effexor, Zanaflex and Xanax due to Torsades -EEG negative -start Cymbalta - no cardiac effects -improved today - back to normal MS - agitation/hallucinations/tremor resolved * Conversion disorder -patient accepting now that psych instability is the issue - probably exacerbated by abrupt med withdrawal * Factor V Leiden with hypercoagulable state -therapeutic on warfarin * h/o recurrent UTI -UA completely clear this admission - no indication for antibiotics * Cdiff -PO vanco * Congenital hip deformity with chronic pain - continuous narcotic dependency -has been on stable regimen for years * Hip pain post fall -Xray negative - but still with significant pain - check CT pelvis * Obesity BMI 33 -recent significant weight loss in compliance with doctors recommendations * ALEJANDRA - CPAP, obesity BMI 33 * Chronic respiratory failure - baseline O2 3-4L * Recent parathyroidectomy -Ca++ okay * h/o Torsades -avoid QT prolonging agents * MRSA colonization * Insomnia -try trazodone Subjective: Much better today, no longer hallucination, describing all the things she saw yesterday. Very pleasant. h/o diarrhea. Hip still hurts and limited ambulation Objective: Vital Signs Temp Pulse Resp BP Pulse Ox 36.5 C 82 19 125/77 H 90 L 03/07/18 07:35 03/07/18 08:25 03/07/18 07:35 03/07/18 08:25 03/07/18 07:35 Laboratory Results 03/06/18 05:10 03/06/18 03/07/18 03/08/18 05:59 05:59 05:59 Intake Total 300 700 400 Output Total 1500 350 Balance 300 -800 50 PT 28.5 SEC (12.0-15.0) H 03/07/18 04:20 INR 2.69 (0.83-1.16) H 03/07/18 04:20 - Time Spent With Patient Time Spent with Patient: greater than 35 minutes (extensive, detailed questions answered with patient and her partner Adrianna) Time Spent with Patient: Greater than 35 minutes spent on this patients care, greater than 50% of time spent counseling, educating, and coordinating care regarding the above mentioned plan. - Physical Exam Constitutional: no apparent distress, appears nourished, not in pain Cardiovascular: regular rate and rhythym, no murmur, rub, or gallop Respiratory: no respiratory distress, no rales or rhonchi, clear to auscultation Gastrointestinal: normoactive bowel sounds, soft, non-tender abdomen, no palpable masses Skin: no rashes or abrasions, no fluctuance, no induration Neurologic: AAOx3, sensation intact bilaterally Psychiatric: interacting appropriately, not anxious, not encephalopathic, thought process linear ICD10 Worksheet Patient Problems: Problems Problem Status Onset Altered mental status Acute Volume depletion Acute Abdominal pain Acute Arrhythmia Acute Chest pain Acute Confusion Acute Hypokalemia Acute Hypomagnesemia Acute Shortness of breath Acute TIA (transient ischemic attack) Acute UTI (urinary tract infection) Acute Vomiting Acute
[2018-03-07] MEDS ORDERED: WARFARIN SODIUM 5 MG TAB PO SCH (16:00)
--- NOTE | 2018-03-07 16:24 | ASMTCMCOM ---
CM Note CM Note Notes: Today PT rec home with 24/hr supervision, OT/COMMERCIAL UNDERWRITER clear pt. Pt reports he partner is home and will provide 24/hr supervision. Pt request various community resources, CM will provide. A previous admission pt was recommended to f/u w psych, pt reports she has not and does not plan on it. Pt wants to have information on MDPOA form for her and partner, pagetrevor and will meet with pt in am. CM to follow. D/c plan of care: Home with 24/hr supervision Date Signed: 03/07/2018 04:23 PM Electronically Signed By:CONNIE Spain
[2018-03-07] MEDS: VANCOMYCIN 125 MG/2.5 ML UDL PO SCH ×2 (16:33→20:38)
[2018-03-07] MEDS: BACLOFEN 10 MG TAB PO SCH ×2 (16:34→20:38)
[2018-03-07] MEDS: SENNOSIDES/DOCUSATE SODIUM TAB PO SCH (20:37)
[2018-03-07] MEDS: MELATONIN 3 MG TAB PO SCH (20:38)
[2018-03-07] MEDS: PRAVASTATIN SODIUM 40 MG TAB PO SCH (20:38)
[2018-03-07] MEDS ORDERED: traZODone 50 MG TAB PO SCH (21:00)
[2018-03-08] MEDS: LORazepam 2 MG/ML INJ IVP PRN (04:59)
[2018-03-08 05:43] LABS: INR 2.6 (0.83-1.16); PROTIME(PATIENT) 27.8 SEC (12.0-15.0)
[2018-03-08] MEDS: VANCOMYCIN 125 MG/2.5 ML UDL PO SCH ×4 (06:16→20:47)
[2018-03-08] MEDS ORDERED: BACLOFEN 10 MG TAB PO PRN (08:58)
[2018-03-08] MEDS: CALCIUM CARBONATE 500 MG TAB PO SCH (10:30)
[2018-03-08] MEDS: traMADol 50 MG TAB PO SCH ×3 (10:31→20:47)
[2018-03-08] MEDS: GABAPENTIN 400 MG CAP PO SCH ×3 (10:31→20:47)
[2018-03-08] MEDS: LIFITEGRAST OP SCH ×2 (10:32→20:56)
[2018-03-08] MEDS: METOPROLOL SUCCINATE XR 50 MG TAB PO SCH (10:34)
[2018-03-08] MEDS: SENNOSIDES/DOCUSATE SODIUM TAB PO SCH (10:36)
[2018-03-08] MEDS: DULoxetine 60 MG CAP PO SCH (10:49)
[2018-03-08] MEDS ORDERED: diphenhydrAMINE 50 MG CAP PO PRN (13:07)
[2018-03-08] MEDS: WARFARIN SODIUM 5 MG TAB PO SCH (16:34)
--- NOTE | 2018-03-08 18:35 | HOSPPROG ---
Hospitalist Progress Note Assessment/Plan: * Effexor withdrawal - cold turkey off Effexor, Zanaflex and Xanax due to Torsades -EEG negative -start Cymbalta - no cardiac effects -improved - back to normal MS - agitation/hallucinations/tremor resolved -using prn ativan Q4 - took 6mg IV ativan yesterday -DC ativan and monitor off med - patient understands she will not get benzo prescription at discharge * Conversion disorder -patient accepting now that psych instability is the issue - probably exacerbated by abrupt med withdrawal * Factor V Leiden with hypercoagulable state -therapeutic on warfarin * h/o recurrent UTI -UA completely clear this admission - no indication for antibiotics * Cdiff -PO vanco * Congenital hip deformity with chronic pain - continuous narcotic dependency -has been on stable regimen for years * Obesity BMI 33 -recent significant weight loss in compliance with doctors recommendations * ALEJANDRA - CPAP, obesity BMI 33 * Chronic respiratory failure - baseline O2 3-4L * Recent parathyroidectomy -Ca++ okay * h/o Torsades -avoid QT prolonging agents * MRSA colonization * Insomnia -difficult - she has not slept well in 6 months since meds were DC'd -this has contributed to her emotional instability -Nyquil works - doxylamine not on formulary but ok for OTC use post discharge Subjective: Understand that prn ativan order has been DC'd. Concerned about her ability to sleep without it. Objective: Vital Signs Temp Pulse Resp BP Pulse Ox 36.4 C 77 18 136/75 H 94 03/08/18 15:19 03/08/18 15:19 03/08/18 15:19 03/08/18 15:19 03/08/18 15:19 Laboratory Results 03/06/18 05:10 03/07/18 03/08/18 03/09/18 05:59 05:59 05:59 Intake Total 049 340 3997 Output Total 1500 350 Balance -838 29 4443 PT 27.8 SEC (12.0-15.0) H 03/08/18 04:20 INR 2.60 (0.83-1.16) H 03/08/18 04:20 - Time Spent With Patient Time Spent with Patient: greater than 35 minutes Time Spent with Patient: Greater than 35 minutes spent on this patients care, greater than 50% of time spent counseling, educating, and coordinating care regarding the above mentioned plan. - Physical Exam Constitutional: no apparent distress, appears nourished, not in pain Cardiovascular: regular rate and rhythym, no murmur, rub, or gallop Respiratory: no respiratory distress, no rales or rhonchi, clear to auscultation Gastrointestinal: normoactive bowel sounds, soft, non-tender abdomen, no palpable masses Skin: no rashes or abrasions, no fluctuance, no induration Neurologic: AAOx3, sensation intact bilaterally Psychiatric: interacting appropriately, not anxious, not encephalopathic, thought process linear ICD10 Worksheet Patient Problems: Problems Problem Status Onset Altered mental status Acute Volume depletion Acute Abdominal pain Acute Arrhythmia Acute Chest pain Acute Confusion Acute Hypokalemia Acute Hypomagnesemia Acute Shortness of breath Acute TIA (transient ischemic attack) Acute UTI (urinary tract infection) Acute Vomiting Acute
[2018-03-08] MEDS: PRAVASTATIN SODIUM 40 MG TAB PO SCH (20:47)
[2018-03-08] MEDS: MELATONIN 3 MG TAB PO SCH (20:56)
[2018-03-09] MEDS: VANCOMYCIN 125 MG/2.5 ML UDL PO SCH ×2 (05:32→12:07)
[2018-03-09 05:43] LABS: INR 2.38 (0.83-1.16)
[2018-03-09] MEDS: CALCIUM CARBONATE 500 MG TAB PO SCH (09:43)
[2018-03-09] MEDS: DULoxetine 60 MG CAP PO SCH (09:43)
[2018-03-09] MEDS: GABAPENTIN 400 MG CAP PO SCH (09:43)
[2018-03-09] MEDS: fentaNYL 75 MCG PATCH TD SCH (09:43)
[2018-03-09] MEDS: METOPROLOL SUCCINATE XR 50 MG TAB PO SCH (09:47)
[2018-03-09] MEDS: traMADol 50 MG TAB PO SCH (09:48)
[2018-03-09 09:52] VITALS: BP 178/93
[2018-03-09] MEDS: LIFITEGRAST OP SCH (09:54)
--- NOTE | 2018-03-09 13:57 | ASMTCMCOM ---
CM Note CM Note Notes: Pt medically stable for d/c with supervision. Pt provided blue book and Senior Services resources. No CM d/c needs identified. Date Signed: 03/09/2018 01:56 PM Electronically Signed By:CONNIE Spain
--- NOTE | 2018-03-09 16:20 | PDDCSUM ---
Discharge Summary Discharge Summary: Date of Admission: 03/05/2018 Date of Discharge: 03/09/2018 Consultants: neurology Discharge Diagnoses: 1. Fall 2. Episodic encephalopathy 3. C diff colitis, mild 4. Depression 5. Chronic problems: H/o torsades de pointes, chronic pain with opioid dependence, chronic respiratory failure, ALEJANDRA, Factor V Leiden Brief Hospital Course by Problem: 1. Fall: Mechanical vs related to meds. No significant trauma. Mild right knee effusion. 2. Episodic encephalopathy: Characterized by varying symptomatology ranging from agitation, hallucinations, twitching. Normal neurologic exam. MRI, EEG unrevealing. Previously these were felt to be related to urinary infections. Neurology was consulted; there is a strong concern for conversion disorder (she has multiple risk factors including chronic pain, polypharmacy). Recommend outpatient psych evaluation and streamlining of medication list. 3. C diff colitis: Mild. First occurrence, likely related to frequent abx for UTI. Discharged to complete 10 day course of PO vancomycin. 4. Depression: Started duloxetine this admission (limited cardiac effects). Previously on venlafaxine. 5. H/o torsades de pointes: Over 6 months ago. Seemingly medication related. Avoid QT prolonging agents. 6. Chronic pain with opioid dependence: Related to congenital hip deformity. Stable on current regimen. Consider weaning. 7. Chronic respiratory failure: On baseline 3-4L NC. 8. Recent parathyroidectomy: Calcium levels ok. 9. ALEJANDRA: CPAP 10. H/o recurrent UTI: UA clean. 11. Factor V Leiden: Therapeutic on warfarin. Medications at Discharge: Please refer to EMR for complete list. Additions this admission include PO vancomycin and duloxetine. Follow Up Plan: 1. PCP visit to ensure diarrhea resolved with antibiotics 2. Behavioral health referral for management of possible conversion d/o 3. Follow up right knee swelling Physical Exam: Vitals reviewed. Patient alert and oriented without focal neurologic deficits. Normal cardiac exam and lungs clear without wheezing. Abdomen soft, nontender. Mild right knee effusion without warmth or erythema, full ROM.
== END 2018-03-09 12:44 | disposition home or self-care (01) | DRG 71 ==
LOC: EDUNIT# → F3N 21:38 → OBSVTOIN 21:40
PROVIDERS: ADMIT Internal Medicine; ATTEND Internal Medicine
DX: G93.40 Encephalopathy, unspecified (principal); F44.9 Dissociative and conversion disorder, unspecified; F11.20 Opioid dependence, uncomplicated; Z87.440 Personal history of urinary (tract) infections; A04.72 Enterocolitis due to Clostridium difficile, not specified as recurrent; D68.2 Hereditary deficiency of other clotting factors; G89.29 Other chronic pain; J96.10 Chronic respiratory failure, unspecified whether with hypoxia or hypercapnia; E03.9 Hypothyroidism, unspecified; G47.33 Obstructive sleep apnea (adult) (pediatric); E66.9 Obesity, unspecified; Z68.33 Body mass index [BMI] 33.0-33.9, adult; Z86.14 Personal history of Methicillin resistant Staphylococcus aureus infection; Z87.891 Personal history of nicotine dependence
CPT/HCPCS: 84484-PO; 92523-GN; 93005-PO; 96365; 97116-GP; 97162-GP; 97167-GO; 97530-GP; 97535-GO; G8978-GP-CM; G8979-GP-CK; G8987-GO-CN; G8988-GO-CI; G9165-GN-CK; G9166-GN-CH; J0696; J1170; J2060; J3360

== ENCOUNTER 2018-09-30 13:53 | Emergency (ER) | payer OTHER ==
[2018-09-30] MEDS ORDERED: NS 1,000 ML IV ONE (15:10)
--- NOTE | 2018-09-30 15:50 | EDPHY ---
H & P Stated Complaint: "distended" abd Time Seen by Provider: 09/30/18 14:50 HPI/ROS: CHIEF COMPLAINT: Abdominal pain, "hard abdomen" HISTORY OF PRESENT ILLNESS: This is a 68-year-old female with a past medical history of factor 5 Leiden deficiency with DVTs, history of torsades, history of episodic encephalopathy, and history of chronic back pain presents reporting abdominal pain for the last 3 days. Patient states she has a band of pain across her abdomen which makes it hard to breathe. More significant pain in the left upper quadrant and left lower quadrant. No vomiting. No diarrhea. No fever. Patient reports that when she developed her episode of torsade it began with abdominal pain. No fevers, chills, chest pain, shortness of breath, palpitations, vomiting. She did have some nausea yesterday when waking. Reports no diarrhea although she has had pasty stools and intermittent diarrhea over the last several weeks, but none over the last 3 days. She does have a history of Clostridium difficile. REVIEW OF SYSTEMS: A comprehensive 10 system review of systems was reviewed and is otherwise negative aside from elements mentioned in the history of present illness and medical decision making. PAST MEDICAL HISTORY: torsades, episodes of "encephalopathy", factor 5 Leiden deficiency, bilateral DVTs. C difficile. SOCIAL HISTORY: Here with friend. Nonsmoker. VITAL SIGNS Reviewed by me. GENERAL: Well-developed, well-nourished, resting comfortably in no respiratory distress. Reports chronic low back pain. HEENT: Atraumatic. Eyes: No icterus, no injection. Mouth: moist mucous membranes. No erythema or lesions. Neck: supple with no adenopathy. LUNGS: Clear to auscultation bilaterally, no wheezes, rhonchi or rales. CARDIAC: Regular rate and rhythm, no rubs, murmurs or gallops. ABDOMEN: Soft, nondistended, no guarding or rebound. Mild tenderness across the epigastrium and in the left upper quadrant. No flank tenderness. Normal bowel sounds BACK: No CVA tenderness. EXTREMITIES: No trauma. No edema. Range of motion is normal throughout. NEURO: Alert and oriented, grossly nonfocal. SKIN: Warm and dry, no rash. PSYCHIATRIC: Normal mentation, no agitation. - Personal History Current Tetanus Diphtheria and Acellular Pertussis (TDAP): Yes Tetanus Vaccine Date: unsure - Medical/Surgical History Hx Asthma: No Hx Chronic Respiratory Disease: No Hx Diabetes: No Hx Cardiac Disease: Yes Hx Renal Disease: No Hx Cirrhosis: No Hx Alcoholism: No Hx HIV/AIDS: No Hx Splenectomy or Spleen Trauma: No Other PMH: torsardes/factor v leden deficiency, parathyroidectomy, artificial left hip (30 yrs ago), full hysterectomy, gall bladder removal. Chronic UTI's, hypokalemia, migraines, sleep apnea with bipap - Social History Smoking Status: Former smoker Constitutional: Initial Vital Signs Temperature (C) 37.1 C 09/30/18 14:14 Heart Rate 78 09/30/18 14:14 Respiratory Rate 16 09/30/18 14:14 Blood Pressure 149/97 H 09/30/18 14:14 O2 Sat (%) 96 09/30/18 14:14 O2 Delivery Mode Nasal Cannula O2 (L/minute) 2 Allergies/Adverse Reactions: fluoxetine [From Prozac] Allergy (Mild, Verified 01/09/18 14:34) Other-Enter Comments adhesive tape Allergy (Verified 01/09/18 14:34) sumatriptan Allergy (Verified 02/04/18 15:12) Qt PROLONGING AGENTS Allergy (Uncoded 03/06/18 14:58) Home Medications: Medication Instructions Recorded Herbals/Supplements -Info Only 1 ea PO DAILY 02/03/18 Lidocaine 5% [Lidocaine 5% Oint] 1 janki TP TID PRN 02/03/18 Lifitegrast [Xiidra] 1 each OP BID 02/03/18 Metoprolol Succinate Xr [Toprol Xl 25 mg PO DAILY 02/03/18 50 mg (*)] Polyethylene Glycol 3350 [Miralax 17 gm PO Q2D PRN 02/03/18 17 gm (*)] Pravastatin Sodium 40 mg PO HS 02/03/18 Warfarin Sodium [Coumadin 5MG (*)] 5 mg PO SUTUTHSA 02/03/18 Warfarin Sodium [Coumadin 5MG (*)] 7.5 mg PO MWF@16 02/03/18 fentaNYL [Duragesic 75 MCG Patch 75 mcg TD Q72H 02/03/18 (*)] traMADol [Ultram 50 mg (*)] 50 mg PO TID 02/03/18 Citracal Maximum 2 tab PO DAILY@02/04/18 Gabapentin [Neurontin 400 MG (*)] 400 mg PO TID 03/05/18 Baclofen [Baclofen 10 mg (*)] 10 mg PO TID 03/06/18 DULoxetine [Cymbalta 60 MG (*)] 60 mg PO DAILY #30 cap 03/09/18 Vancomycin [Vancocin Oral Liquid] 125 mg PO QID #1600 udl 03/09/18 Cephalexin [Keflex (RX)] 500 mg PO TID 7 Days cap 09/30/18 Dicyclomine [Bentyl 20 MG (*)] 20 mg PO QID PRN #20 tab 09/30/18 Medical Decision Making - Diagnostics EKG Interpretation: 12-LEAD EKG: Please see the full report in [facility]. My interpretation: Sinus rhythm, prolonged QT Imaging Results: Imaging Impressions Abdomen CT 09/30/18 15:12 Impression: 1. No acute intra-abdominal process to explain pain. 2. Mild constipation. Normal gallbladder. Minimal sigmoid diverticulosis. 3. Mild biliary dilation is unchanged since one year prior and is likely the patient's postcholecystectomy baseline. Findings discussed with Emergency Department physician, Dr. Bria Vang on September 30, 2018 at 1702 hours. Imaging: Discussed imaging studies w/ train caller Radiologist ED Course/Re-evaluation: 68-year-old female with upper abdominal discomfort for the last 3 days. IV was placed and patient had labs sent. CBC, chemistries largely unremarkable. Patient's magnesium was 1.7. CT scan of the abdomen pelvis demonstrates no specific cause of the patient's abdominal pain. Patient has no constipation. She has some diverticulosis but no diverticulitis. Patient's urine demonstrates significant number of white cells. I discussed results with the patient. At this point patient was instructed to try omeprazole for reflux or GERD, and was placed on Keflex for possible urinary tract infection. She also was given a prescription of Bentyl to use for crampy abdominal discomfort. Patient also reports a history of C difficile in the past and has had some pasty stools and some foul-smelling diarrhea. No diarrhea here. GI pathogen panel was ordered. Patient will return in a stool sample as soon as possible. She will follow with her primary care physician if she is not improving as expected in the next several days. Abdominal pain precautions were also provided the patient will return if needed. Differential Diagnosis: After obtaining the patient's history and performing an examination, differential diagnosis considered included but was not limited to constipation, bowel obstruction, a lower lobe pneumonia, kidney stone, diverticulitis, diverticulosis. - Data Points Laboratory Results: Laboratory Results 09/30/18 15:20 09/30/18 15:20 09/30/18 09/30/18 09/30/18 16:10 15:20 15:20 WBC RBC Hgb Hct MCV MCH MCHC RDW Plt Count MPV Neut % (Auto) Lymph % (Auto) [place] % (Auto) Eos % (Auto) Baso % (Auto) Nucleat RBC Rel Count Absolute Neuts (auto) Absolute Lymphs (auto) Absolute Monos (auto) Absolute Eos (auto) Absolute Basos (auto) Absolute Nucleated RBC Immature Gran % Immature Gran # PT 21.1 SEC H SEC (12.0-15.0) INR 1.92 H (0.83-1.16) Sodium 137 mEq/L mEq/L (135-145) Potassium 4.0 mEq/L mEq/L (3.5-5.2) Chloride 100 mEq/L mEq/L (97-110) Carbon Dioxide 28 mEq/l mEq/l (22-31) Anion Gap 9 mEq/L mEq/L (6-14) BUN 24 mg/dL H mg/dL (7-23) Creatinine 0.7 mg/dL mg/dL (0.6-1.0) Estimated GFR > 60 Glucose 104 mg/dL H mg/dL (70-100) Calcium 9.6 mg/dL mg/dL (8.5-10.4) Magnesium 1.7 mg/dL mg/dL (1.6-2.3) Total Bilirubin 1.1 mg/dL mg/dL (0.1-1.4) Conjugated Bilirubin 0.4 mg/dL mg/dL (0.0-0.5) Unconjugated Bilirubin 0.7 mg/dL mg/dL (0.0-1.1) AST 22 IU/L IU/L (14-46) ALT 23 IU/L IU/L (9-52) Alkaline Phosphatase 55 IU/L IU/L (38-126) Total Protein 7.9 g/dL g/dL (6.3-8.2) Albumin 4.7 g/dL g/dL (3.5-5.0) Lipase 41 IU/L IU/L (23-300) Urine Color YELLOW Urine Appearance CLEAR Urine pH 6.0 (5.0-7.5) Ur Specific [place] 1.028 (1.002-1.030) Urine Protein NEGATIVE (NEGATIVE) Urine Ketones NEGATIVE (NEGATIVE) Urine Blood NEGATIVE (NEGATIVE) Urine Nitrate NEGATIVE (NEGATIVE) Urine Bilirubin NEGATIVE (NEGATIVE) Urine Urobilinogen NEGATIVE EU EU (0.2-1.0) Ur Leukocyte Esterase 2+ H (NEGATIVE) Urine RBC 3-5 /hpf H /hpf (0-3) Urine WBC 50-182 /hpf H /hpf (0-3) Ur Epithelial Cells TRACE /lpf /lpf (NONE-1+) Urine Mucus 1+ /lpf /lpf (NONE-1+) Urine Glucose NEGATIVE (NEGATIVE) 09/30/18 15:20 WBC 5.91 10^3/uL 10^3/uL (3.80-9.50) RBC 4.13 10^6/uL L 10^6/uL (4.18-5.33) Hgb 12.4 g/dL L g/dL (12.6-16.3) Hct 38.4 % % (38.0-47.0) MCV 93.0 fL fL (81.5-99.8) MCH 30.0 pg pg (27.9-34.1) MCHC 32.3 g/dL L g/dL (32.4-36.7) RDW 13.0 % % (11.5-15.2) Plt Count 213 10^3/uL 10^3/uL (150-400) MPV 9.9 fL fL (8.7-11.7) Neut % (Auto) 62.1 % % (39.3-74.2) Lymph % (Auto) 29.6 % % (15.0-45.0) [place] % (Auto) 6.8 % % (4.5-13.0) Eos % (Auto) 0.5 % L % (0.6-7.6) Baso % (Auto) 0.5 % % (0.3-1.7) Nucleat RBC Rel Count 0.0 % % (0.0-0.2) Absolute Neuts (auto) 3.67 10^3/uL 10^3/uL (1.70-6.50) Absolute Lymphs (auto) 1.75 10^3/uL 10^3/uL (1.00-3.00) Absolute Monos (auto) 0.40 10^3/uL 10^3/uL (0.30-0.80) Absolute Eos (auto) 0.03 10^3/uL 10^3/uL (0.03-0.40) Absolute Basos (auto) 0.03 10^3/uL 10^3/uL (0.02-0.10) Absolute Nucleated RBC 0.00 10^3/uL 10^3/uL (0-0.01) Immature Gran % 0.5 % % (0.0-1.1) Immature Gran # 0.03 10^3/uL 10^3/uL (0.00-0.10) PT INR Sodium Potassium Chloride Carbon Dioxide Anion Gap BUN Creatinine Estimated GFR Glucose Calcium Magnesium Total Bilirubin Conjugated Bilirubin Unconjugated Bilirubin AST ALT Alkaline Phosphatase Total Protein Albumin Lipase Urine Color Urine Appearance Urine pH Ur Specific [place] Urine Protein Urine Ketones Urine Blood Urine Nitrate Urine Bilirubin Urine Urobilinogen Ur Leukocyte Esterase Urine RBC Urine WBC Ur Epithelial Cells Urine Mucus Urine Glucose Medications Given: Discontinued Medications Sodium Chloride (Ns) 1,000 mls @ 0 mls/hr IV EDNOW ONE; Wide Open PRN Reason: Protocol Stop: 09/30/18 15:11 Last Admin: 09/30/18 15:29 Dose: 1,000 mls Departure - Departure Disposition: Home, Routine, Self-Care Clinical Impression: Abdominal pain Qualifiers: Abdominal location: upper abdomen, unspecified Qualified Code(s): R10.10 - Upper abdominal pain, unspecified Condition: Good Instructions: Urinary Tract Infection in Women (ED), Gas and Bloating (ED), Abdominal Pain (ED) Additional Instructions: Your urine appears to be infected. This is been sent for culture. Please take Keflex 500 mg by mouth 3 times a day. If you're urine culture does not indicate infection, you may stop taking the antibiotic. You may call the emergency department in 2 days to find out the results of your urine culture. For your upper abdominal discomfort, I recommend beginning omeprazole nightly. This is available [id number]. I also have given you a prescription for Bentyl. This may help with crampy abdominal discomfort. Please follow up with your primary care physician as soon as possible for further evaluation. Please drink plenty of fluids and get plenty of rest. You magnesium today is normal at 1.7. Return to the emergency department or seek care urgently if your symptoms are worsening despite the above measures. Referrals: Missy Purvis, DO [Primary Care Provider] - As per Instructions Prescriptions: Cephalexin [Keflex (RX)] 500 mg PO TID 7 Days cap Dicyclomine [Bentyl 20 MG (*)] 20 mg PO QID PRN #20 tab PRN Reason: abdominal pain
[2018-09-30 15:51] LABS: PLATELET COUNT 213 10^3/uL (150-400)
[2018-09-30] MEDS ORDERED: IOPAMIDOL (ISOVUE-300) 100 ML BTL ONE (15:51)
[2018-09-30 15:55] LABS: INR 1.92 (0.83-1.16); PROTIME(PATIENT) 21.1 SEC (12.0-15.0)
--- NOTE | 2018-09-30 17:05 | CPEKG ---
Test Reason : OPEN Blood Pressure : / mmHG Vent. Rate : 081 BPM Atrial Rate : 081 BPM P-R Int : 168 ms QRS Dur : 085 ms QT Int : 431 ms P-R-T Axes : 023 019 058 degrees QTc Int : 501 ms Sinus rhythm Low voltage, precordial leads Prolonged QT interval Confirmed by Bria Vang ([id number]) on 09/30/2018 5:05:33 PM Referred By: Bria Vang Confirmed By:Bria Vang
[2018-09-30 18:10] VITALS: BP 146/87
== END 2018-09-30 18:10 | disposition home or self-care (01) ==
DX: R10.10 Upper abdominal pain, unspecified (principal); E86.9 Volume depletion, unspecified; D68.2 Hereditary deficiency of other clotting factors; G93.40 Encephalopathy, unspecified
CPT/HCPCS: 74177; 93005; 96360; 99285; Q9967

== ENCOUNTER 2018-10-09 10:09 | Emergency (ER) | payer OTHER ==
[2018-10-09] MEDS ORDERED: DICYCLOMINE 10 MG CAP PO ONE ×2 (10:51→10:53)
--- NOTE | 2018-10-09 10:53 | EDPHY ---
H & P Stated Complaint: abd cramping/ ? c diff brought in stool specimen Time Seen by Provider: 10/09/18 10:29 HPI/ROS: CHIEF COMPLAINT: Abdominal cramping, diarrhea HISTORY OF PRESENT ILLNESS: 68-year-old female with history of C diff colitis presents with abdominal cramping and diarrhea. Onset of abdominal cramping 5 weeks ago. She was seen in this emergency department 1 week ago and given Bentyl with relief. She has now run out of Bentyl and is requesting a refill. She also has watery diarrhea on and off for 5 weeks. Concern for C diff colitis. 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 Received 2 courses of oral vancomycin. No fever or chills. 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 Chronic UTI's, hypokalemia, migraines, sleep apnea with bipap - Social History Smoking Status: Former smoker - Physical Exam Exam: General Appearance: Alert, pleasant and talkative Eyes: Pupils equal and round, no conjunctival pallor ENT, Mouth: Mucous membranes moist Neck: Normal inspection Respiratory: Lungs are clear to auscultation Cardiovascular: Regular rate and rhythm Gastrointestinal: Abdomen is soft, distended and nontender, normal bowel sounds Neurological: A&O, nonfocal, normal gait Skin: Warm and dry Extremities: Normal inspection Psychiatric: Mood and affect normal Constitutional: Initial Vital Signs Temperature (C) 36.8 C 10/09/18 10:15 Heart Rate 66 10/09/18 10:15 Respiratory Rate 18 10/09/18 10:15 Blood Pressure 133/68 H 10/09/18 10:15 O2 Sat (%) 97 10/09/18 10:15 O2 Delivery Mode Room Air Allergies/Adverse Reactions: fluoxetine [From Prozac] Allergy (Mild, Verified 10/09/18 10:09) Other-Enter Comments adhesive tape Allergy (Verified 10/09/18 10:09) sumatriptan Allergy (Verified 10/09/18 10:09) Qt PROLONGING AGENTS Allergy (Uncoded 03/06/18 14:58) Home Medications: Medication Instructions Recorded Herbals/Supplements -Info Only 1 ea PO DAILY 02/03/18 Lidocaine 5% [Lidocaine 5% Oint] 1 janki TP TID PRN 02/03/18 Lifitegrast [Xiidra] 1 each OP BID 02/03/18 Metoprolol Succinate Xr [Toprol Xl 25 mg PO DAILY 02/03/18 50 mg (*)] Polyethylene Glycol 3350 [Miralax 17 gm PO Q2D PRN 02/03/18 17 gm (*)] Pravastatin Sodium 40 mg PO HS 02/03/18 Warfarin Sodium [Coumadin 5MG (*)] 5 mg PO SUTUTHSA 02/03/18 Warfarin Sodium [Coumadin 5MG (*)] 7.5 mg PO MWF@16 02/03/18 fentaNYL [Duragesic 75 MCG Patch 75 mcg TD Q72H 02/03/18 (*)] Citracal Maximum 2 tab PO DAILY@08 02/04/18 Gabapentin [Neurontin 400 MG (*)] 400 mg PO TID 03/05/18 Cephalexin [Keflex (RX)] 500 mg PO TID 7 Days cap 09/30/18 Dicyclomine [Bentyl 20 MG (*)] 20 mg PO QID PRN #20 tab 09/30/18 Dicyclomine [Bentyl 20 MG (*)] 20 mg PO QID PRN #30 tab 10/09/18 Medical Decision Making ED Course/Re-evaluation: This patient presents with abdominal bloating and diarrhea. She brought in a stool sample and it was sent for a GI pathogen panel. She requests Bentyl for abdominal cramping. Bentyl 20 mg orally given. I do not feel that further ED evaluation is indicated, given that her abdominal exam is benign. She will call in 2-3 hours for stool studies results. f/u GI - Data Points Microbiology Results: MICROBIOLOGY 10/09/18 10:30 Stool Gastrointestinal Tract Panel (PCR) - Final No Organism Detected By Pcr Medications Given: Discontinued Medications Dicyclomine HCl (Bentyl) 20 mg PO EDNOW ONE Stop: 10/09/18 10:54 Last Admin: 10/09/18 11:03 Dose: 20 mg Departure - Departure Disposition: Home, Routine, Self-Care Clinical Impression: Abdominal cramping Diarrhea Qualifiers: Diarrhea type: unspecified type Qualified Code(s): R19.7 - Diarrhea, unspecified Condition: Good Instructions: Acute Diarrhea (ED), Abdominal Pain (ED), Nutrition Tips for Relief of Diarrhea (ED) Additional Instructions: Return for worsening symptoms or any concerns. Call in 2-3 hours for GI pathogen panel results. Referrals: Missy Purvis DO [Primary Care Provider] - As per Instructions Prescriptions: Dicyclomine [Bentyl 20 MG (*)] 20 mg PO QID PRN #30 tab PRN Reason: abdominal cramping
[2018-10-09 11:16] VITALS: BP 122/78
== END 2018-10-09 11:17 | disposition home or self-care (01) ==
DX: R19.7 Diarrhea, unspecified (principal); R10.9 Unspecified abdominal pain; Z86.19 Personal history of other infectious and parasitic diseases